=== PATIENT | male | born 1945 | race Caucasian/White ===

== ENCOUNTER → 2018-02-08 10:30 | Outpatient (CLI) | payer OTHER, SELFPAY ==
[2018-02-08 11:50] LABS: Add Manual Diff / Slide Review NO; Basophils Percent Auto 0.9 % (0-2); Eosinophils Percent Auto 3.8 % (2-4); Hematocrit 36.4 % (41-53); Hemoglobin 12.1 g/dL (13.5-17.5); Mean Corpuscular HGB Conc 33.3 % (30-36); Mean Corpuscular Hemoglobin 30.4 PG (26-34); Mean Corpuscular Volume 91.4 fL (80-100); Monocytes Percent Auto 15.2 % (3-14); Neutrophils Absolute Auto 2800 /uL (3000-5900); Neutrophils Percent Auto 55.1 % (50-75); Platelet Count 317 X10^3/uL (150-400); Red Blood Cell Count 3.98 X10^6/uL (4.5-5.9); Red Cell Distribution Width 14.1 % (11.6-14.8); White Blood Cell Count 5.1 X10^3/uL (4.5-11.0)
[2018-02-08 13:01] LABS: TSH w/ Reflex to FT4 1.28 uIU/mL (0.47-4.68)
[2018-02-08 14:44] LABS: Alanine Aminotransferase 29 IU/L (21-72); Albumin 4.2 g/dL (3.5-5.0); Albumin Globulin Ratio 1.3 (1.0-2.8); Alkaline Phosphatase 72 U/L (38-126); Aspartate Aminotransferase 31 IU/L (17-59); BUN Creatinine Ratio 17.5 (6-22); Bilirubin Total 0.5 mg/dL (0.2-1.3); Blood Urea Nitrogen 14 mg/dL (9-20); Calcium 9.2 mg/dL (8.4-10.2); Carbon Dioxide 29 mmol/L (22-32); Chloride 103 mmol/L (98-107); Cholesterol 118 mg/dL (140-199); Estimated Glomerular Filt Rate > 60.0 mL/min (>60); Globulin 3.2 g/dL (1.7-4.1); Glucose 102 mg/dL (80-110); HDL Cholesterol 48 mg/dL (40-60); HEMOLYSIS < 15 (0-50); LDL Cholesterol Calculated 56 mg/dL (<100); Sodium 143 mmol/L (137-145); Total Protein 7.4 g/dL (6.3-8.2); Triglycerides 68 mg/dL (35-150)
[2018-02-08 15:07] LABS: Prostate Specific Antigen Scrn < 0.064 ng/mL (0.1-4.0)
== END ==
PROVIDERS: PCP Family Medicine; Visit Provider Family Medicine
DX: E78.2 Mixed hyperlipidemia (principal); I10 Essential (primary) hypertension; Z00.00 Encounter for general adult medical examination without abnormal findings; Z12.5 Encounter for screening for malignant neoplasm of prostate
CPT/HCPCS: 36415; 80053; 80061; 84443; 85025; G0103

== ENCOUNTER → 2018-03-09 13:26 | Outpatient (CLI) | payer OTHER, SELFPAY ==
--- NOTE | 2018-03-09 13:27 | DI.ECHO.S_ITS ---
[place] [facility]---------+ [facility] +---------+ : : [address] : [address] : : : : [id number] : : : : Phone: [phone] Echocardiogram Report + + :Name: MITZY MARTE Study Date: 03/09/2018 Height: 65 in : :[facility] Exam Location: IS Weight: 180 lb : : Gender: Male BSA: 1.9 m2 : :: 1945 Age: 72 yrs BP: 122/70 mmHg: :Reason For Study: MURMUR : : Performed By: Surendra Samayoa : :Referring: KARI RODARTE : + + Interpretation Summary The left ventricle is normal in size. The ejection fraction is estimated to be 65-70%. The right ventricle is normal in size and function. The aortic valve is moderately calcified.The mobility of non coronary cusp is significantly restricted. The peak aortic velocity is 3.1 m/sec. The aortic valve mean gradient is 22 mmHg. The peak aortic velocity on the previous exam was 2.23 m/sec. The calculated aortic valve area is 1.2 cm2. There is moderate aortic stenosis. Compared to the prior echo study, there has been an increase in the severity of aortic stenosis. There is mild tricuspid regurgitation. Compared to the prior echo exam, there has been no change in TR severity. The right ventricular systolic pressure is estimated to be at least 24 mmHg based on an estimated right atrial pressure of 3 mm Hg. Procedure: A two-dimensional transthoracic echocardiogram with color flow and Doppler was performed. The study quality was technically adequate. Comparison is made with the echocardiogram of 01/13/11. The patient was in normal sinus rhythm during the exam. Left Ventricle: The left ventricle is normal in size. Proximal septal thickening is noted. There is no echo evidence for significant left ventricular outflow tract obstruction. There is no thrombus. The ejection fraction is estimated to be 65-70%. There has been no significant change since the previous study. There are no focal wall motion abnormalities. Diastolic parameters suggest a relaxation abnormality of the left ventricle, consistent with probable normal filling pressures. Right Ventricle: The right ventricle is normal in size and function. Atria: The left atrium is mildly dilated. The left atrium has remained unchanged in size since the prior echo exam. Right atrial size is normal. The interatrial septum is intact with no evidence for an atrial septal defect. Mitral Valve: There is mild mitral annular calcification. The mitral valve leaflets appear mildly thickened, but open well. The mitral valve chordae are thickened and/or calcified. There is mild mitral regurgitation. Compared to the prior echo study, there has been no change in the severity of mitral regurgitation. Aortic Valve: The aortic valve is trileaflet. The aortic valve is moderately calcified. The mobility of non coronary cusp is significantly restricted. The peak aortic velocity is 3.1 m/sec. The aortic valve mean gradient is 22 mmHg. The calculated aortic valve area is 1.2 cm2. There is moderate aortic stenosis. The peak aortic velocity on the previous exam was 2.23 m/sec. Compared to the prior echo study, there has been an increase in the severity of aortic stenosis. There is trace aortic regurgitation. Tricuspid Valve: The tricuspid valve is normal. There is mild tricuspid regurgitation. The right ventricular systolic pressure is estimated to be at least 24 mmHg based on an estimated right atrial pressure of 3 mm Hg. Compared to the prior echo exam, there has been no change in TR severity. Compared to the prior echo exam, there has been no change in the severity of pulmonary hypertension. Pulmonic Valve: The pulmonic valve is not well seen, but is grossly normal. There is trace pulmonic regurgitation. Great Vessels: The aortic root is normal size. There is aortic root sclerosis/calcification. The ascending aorta is mildly enlarged. There has been no significant change since the previous study. The pulmonary artery is normal size. The IVC is of normal diameter and collapses greater than 50% with a sniff. This suggests a low right atrial pressure of 3 mm Hg. Pericardium/ Pleura There is no pericardial effusion. There is no pleural effusion. MMode/2D Measurements & Calculations LVIDd: 4.4 cm LVOT diam: 2.0 cm LVIDs: 2.4 cm Ao root diam: 3.0 cm FS: 45.8 % Aortic Jxn: 1.9 cm EPSS: 0.38 cm asc Aorta Diam: 3.6 cm IVSd: 0.77 cm Ao Arch Diam (Prox Trans): 2.6 cm LVPWd: 0.90 cm LV batista. diameter/BSA (cm/m^2): 2.3 LV sys. diameter/BSA (cm/m^2): 1.3 LA dimension: 3.5 cm RA long axis: 5.1 cm LA A2 area: 21.1 cm2 RA area: 16.1 cm2 LA A4 area: 19.7 cm2 RA vol: 43.1 ml LA length (vol): 5.4 cm RA : 22.8 ml/m2 LA vol: 65.5 ml IVC diam: 1.6 cm LA vol index: 34.7 ml/m2 Doppler Measurements & Calculations Ao V2 max: 310.2 cm/sec LVOT Max Aleksander: 116.2 cm/sec Ao V2 mean: 220.7 cm/sec LV V1 max P.4 mmHg Ao max P.5 mmHg LV V1 VTI: 23.6 cm Ao mean P.0 mmHg STANISLAW(I,D): 1.1 cm2 Ao V2 VTI: 70.2 cm STANISLAW(V,D): 1.2 cm2 sev ratio: 0.34 STANISLAW indexed to BSA (cm^2/m^2): 0.57 MV E max aleksander: 86.7 cm/sec TR max aleksander: 229.3 cm/sec MV A max aleksander: 121.9 cm/sec TR max P.0 mmHg MV E/A: 0.71 PA V2 max: 96.2 cm/sec Med Peak E' Aleksander: 6.0 cm/sec PA V2 mean: 70.8 cm/sec E/E' med: 14.5 PA mean P.2 mmHg Lat Peak E' Aleksander: 8.2 cm/sec PA pr(Accel): 31.6 mmHg E/E' lat: 10.6 PA Accel Time: 0.09 sec E/e' average: 12.6 MV dec time: 0.15 sec Pulm A Revs Aleksander: 32.6 cm/sec Reading Physician:PM
== END ==
PROVIDERS: PCP Family Medicine; Visit Provider Family Medicine
DX: I08.3 Combined rheumatic disorders of mitral, aortic and tricuspid valves (principal); R01.1 Cardiac murmur, unspecified
CPT/HCPCS: 93306

== ENCOUNTER → 2018-08-09 11:28 | Outpatient (CLI) | payer OTHER, SELFPAY ==
--- NOTE | 2018-08-09 | DI.RAD.S_ITS ---
PROCEDURE: XR CHEST 2V INDICATIONS: HISTORY OF BLADDER CANCER TECHNIQUE: 2 views of the chest were acquired. COMPARISON: [facility], CT, ABDOMEN/PELVIS WITH CONTRAST, 10/02/2014, 5:12. [facility], CR, CHEST 2 VIEW, 06/30/2017, 10:43. FINDINGS: Surgical changes and devices: None. Lungs and pleura: Lungs are clear. Eventration of the right hemidiaphragm. No pleural effusions or pneumothorax. Mediastinum: Mediastinal contours are normal. Heart size is normal. Bones and chest wall: No suspicious bony abnormalities. Soft tissues appear unremarkable. IMPRESSION: No acute disease. Dictated by: Asher Phillip M.D. on 08/09/2018 at 12:40 Approved by: Asher Phillip M.D. on 08/09/2018 at 12:44
[2018-08-09 12:28] LABS: HEMOLYSIS < 15 (0-50)
[2018-08-09 12:36] LABS: Alanine Aminotransferase 25 IU/L (21-72); Albumin 4.5 g/dL (3.5-5.0); Albumin Globulin Ratio 1.5 (1.0-2.8); Alkaline Phosphatase 77 U/L (38-126); Aspartate Aminotransferase 29 IU/L (17-59); Bilirubin Total 0.8 mg/dL (0.2-1.3); Blood Urea Nitrogen 20 mg/dL (9-20); Calcium 9.3 mg/dL (8.4-10.2); Carbon Dioxide 25 mmol/L (22-32); Chloride 100 mmol/L (98-107); Estimated Glomerular Filt Rate > 60.0 mL/min (>60); Globulin 3.1 g/dL (1.7-4.1); Glucose 103 mg/dL (80-110); Potassium 4.3 mmol/L (3.4-5.1); Sodium 136 mmol/L (137-145); Total Protein 7.6 g/dL (6.3-8.2)
[2018-08-09 13:09] LABS: Prostate Specific Antigen < 0.064 ng/mL (0.10-4.00)
[2018-08-09 13:22] LABS: Vitamin B12 415 pg/mL (239-931)
== END ==
PROVIDERS: PCP Family Medicine; Visit Provider Urology
DX: Z85.51 Personal history of malignant neoplasm of bladder (principal); Z12.5 Encounter for screening for malignant neoplasm of prostate
CPT/HCPCS: 36415; 71046; 80053; 82607; 84153

== ENCOUNTER 2018-10-13 12:10 | Emergency (ER) | payer OTHER, SELFPAY ==
[2018-10-13 12:10] VITALS: BP 133/68; PULSE 88; RESP 18; TEMP 36.6; O2SAT 95
--- NOTE | 2018-10-13 12:35 | ED.NECK ---
HPI - Neck Pain/Injury <Cira Newman PA-C - Last Filed: 10/13/18 19:44> General Chief Complaint: Extremity Injury, Upper Stated Complaint: Neck pain, thinks sprain Time Seen by Provider: 10/13/18 12:18 Source: patient Mode of arrival: ambulatory Limitations: no limitations History of Present Illness HPI Narrative: This 73-year-old male comes to ED secondary to persistent neck pain causing lack of sleep. He states that this started 4 days ago, when he was trying to change a Flood light that broke, and had to spend about 20 minutes or more with his neck crooked, removing it with pliers on his tiptoes. Pain started immediately following this. Pain is worse with movement of the neck, and he can't sleep due to the pain. He states that pain does not radiate into his extremities, but he does have some numbness in his right 4th and 5th fingers. He denies any weakness in the extremities. He denies any bowel or bladder changes. He saw his PCP yesterday for this and was given a prescription for cyclobenzaprine, which he thinks helped the pain slightly but did not make him tired at all. He states that he is not acutely worse today but his PCP is not in the office and miserable because he can't sleep. He denies any new fever. He denies any vision change. He denies any nausea or vomiting. He denies any new rashes. He denies any jaw claudication. He has some chronic shoulder and back pain which are not acutely changed. Shoulder pain is worse at night. Only other positive on systems review is right-sided headache radiating over the head from the back of the neck which is ?achy? Related Data Home Medications Medication Instructions Recorded Confirmed multivitamin 1 tab PO DAILY #0 01/20/11 10/13/18 melatonin 3 mg PO BEDTIME #0 02/10/17 10/13/18 atorvastatin [Lipitor] 40 mg PO QPM 10/13/18 10/13/18 cholecalciferol (vitamin D3) 2,000 unit PO DAILY 10/13/18 10/13/18 [Vitamin D3] ibuprofen 400 mg PO PRN PRN 10/13/18 10/13/18 lisinopril-hydrochlorothiazide 1 tab PO QPM 10/13/18 10/13/18 mirtazapine 30 mg PO QPM 10/13/18 10/13/18 Previous Rx's Medication Instructions Recorded cyclobenzaprine 10 mg tablet 5 mg PO TID PRN #20 tab 10/12/18 hydrocodone-acetaminophen 1 tab PO Q6H PRN #7 tab 10/13/18 lidocaine 3 patch TOP DAILY #30 each 10/13/18 Allergies Allergy/AdvReac Type Severity Reaction Status Date / Time Sulfa (Sulfonamide Allergy Mild SEVERE Verified 10/12/18 13:44 Antibiotics) HEADACHE [SULFA (SULFONAMIDE ANTIBIOTICS)] Review of Systems <Cira Newman PA-C - Last Filed: 10/13/18 19:44> Review of Systems ROS Unobtainable: All systems reviewed & are unremarkable except as noted in HPI and below PFSH <Cira Newman PA-C - Last Filed: 10/13/18 19:44> Medical History Anemia (Chronic 2010) Chronic back pain (Chronic 1969) Eczema (Chronic 1983) Hayfever (Chronic 2006) Hyperlipidemia (Chronic) Hypertension (Chronic) Lumbar spine pain (Chronic 1978) RLS (restless legs syndrome) (Chronic 2011) Acne (Resolved 1958) Bladder cancer (Resolved 2010) Chicken pox (Resolved 1952) Migraines (Resolved 1957) Mumps (Resolved 1953) Positive PPD (Resolved 1953) Prostate cancer (Resolved 2010) Urinary incontinence (Resolved 2010) Wrist fracture (Resolved 1968) Family History Brother Age: 67 Overweight Brother Age: 57 Diabetes mellitus Hypertension High cholesterol Father High cholesterol Heart disease Pneumonia [place] (myocardial infarction) Mother Cancer Heart disease Hypertension Stroke Congestive heart failure Son No problems noted. Daughter No problems noted. Sister No problems noted. Social History marital status: Smoking Status: Former smoker alcohol intake: current (ON OCCASION ) substance use type: does not use Exam <Cira Newman PA-C - Last Filed: 10/13/18 19:44> Narrative Exam Narrative: GENERAL APPEARANCE: Patient sitting, appears mildly uncomfortable, in NAD HEENT: PERRL, EOMI, normal TMs and oropharynx, no sinus TTP NECK: Supple, no masses LUNGS: Clear to auscultation bilaterally. HEART: Rate and rhythm regular without murmur, normal S1 and S2, no S3 or S4. NEUROLOGIC: Alert and oriented, normal speech, and coordination. Sensation grossly intact to the extremities, negative Tinel sign over the ulnar distribution MUSCULOSKELETAL: No point tenderness over the cervical or upper thoracic spine. Tender over the right inferior insertions of the posterior cervical strap musculature as well as the proximal trapezius. Less tender over the remainder of the surrounding musculature. Also tender over the left-sided cervical strap musculature most at the suboccipital space. Limited C-spine ROM in all lau secondary to tenderness, most with bilateral lateral bend and rotation. Upper extremity strength 5/5 bilateral shoulder shrug, biceps, triceps, cloth shearer. DERMATOLOGIC: No exanthem Initial Vital Signs Initial Vital Signs: Vital Signs Temperature 97.9 F 10/13/18 12:10 Pulse Rate 88 10/13/18 12:10 Respiratory Rate 18 10/13/18 12:10 Blood Pressure 133/68 10/13/18 12:10 Pulse Oximetry 95 10/13/18 12:10 <So lGass DO - Last Filed: 10/14/18 07:27> Initial Vital Signs Initial Vital Signs: Vital Signs Temperature 97.9 F 10/13/18 12:10 Pulse Rate 88 10/13/18 12:10 Respiratory Rate 18 10/13/18 12:10 Blood Pressure 133/68 10/13/18 12:10 Pulse Oximetry 95 10/13/18 12:10 Procedures <Cira Newman PA-C - Last Filed: 10/13/18 19:44> [facility] [place] Procedure Name of Procedure: Trigger point injection Technique/Description of procedure performed: Skin was cleaned and injected with 0.6 CC Marcaine and 0.4 cc dexamethasone each site: Left suboccipital and right cervical strap muscle distal base. Patient reported significant improvement in pain following injections, ROM improved on reassessment. Patient tolerated procedure: Well Course <Cira Newman PA-C - Last Filed: 10/13/18 19:44> Orders Ordered: Discontinued Medications Dexamethasone (Decadron) 4 mg INJ NOW ONE Stop: 10/13/18 12:50 Last Admin: 10/13/18 12:54 Dose: 4 mg Vital Signs - 8 hr 10/13/18 12:10 10/13/18 13:32 Temperature 97.9 F 98.4 F Pulse Rate 88 84 Respiratory Rate 18 12 Blood Pressure 133/68 Pulse Oximetry 95 98 <So Glass, DO - Last Filed: 10/14/18 07:27> Orders Ordered: Discontinued Medications Dexamethasone (Decadron) 4 mg INJ NOW ONE Stop: 10/13/18 12:50 Last Admin: 10/13/18 12:54 Dose: 4 mg Vital Signs - 8 hr 10/13/18 12:10 10/13/18 13:32 Temperature 97.9 F 98.4 F Pulse Rate 88 84 Respiratory Rate 18 12 Blood Pressure 133/68 Pulse Oximetry 95 98 Discharge Plan Departure Patient Disposition: Home Clinical Impression: Acute cervical myofascial strain Qualifiers: Encounter type: initial encounter Qualified Code(s): S16.1XXA - Strain of muscle, fascia and tendon at neck level, initial encounter Discharge Date/Time: 10/13/18 14:04 Interventions: ED Discharge Assessment Last Done: 10/13/18 14:05 Instructions: DI for Neck Sprain, DI for Muscle Spasm Activity Restrictions/Additional Instructions: As we talked about, you should return if you have any acutely worsening symptoms over the weekend, or new symptoms such as rash, vision change, jaw pain or fever. Otherwise, please continue your medicines that you have at home. You can continue taking the cyclobenzaprine, and if you need to you can increase the dose to a full tab at bedtime. Please try taking the hydrocodone/acetaminophen with the 5 mg dose 1st to see if that is enough for you as both of these medicines can make you sleepy. Put the lidocaine patches on after you pick them up as you can wear these for 12 hours daily. (I sent patch prescription to [facility] for you). Continue very gentle stretching but avoid straining the neck. You can continue heat and ice as needed. Please follow-up with your PCP next week to assess your progress and see whether you may need any further treatment such as physical therapy. Prescriptions: New hydrocodone-acetaminophen 5-325 mg tablet 1 tab PO Q6H PRN (Reason: acute neck pain) Qty: 7 RF: 0 lidocaine 5 % adhesive patch,medicated 3 patch TOP DAILY Qty: 30 RF: 0 No Action cyclobenzaprine 10 mg tablet 5 mg PO TID PRN (Reason: muscle spasm) Qty: 20 RF: 0 multivitamin Tablet 1 tab PO DAILY Qty: 0 RF: 0 melatonin 3 MG tablet 3 mg PO BEDTIME Qty: 0 RF: 0 atorvastatin [Lipitor] 40 mg tablet 40 mg PO QPM RF: 0 lisinopril-hydrochlorothiazide 20-12.5 mg tablet 1 tab PO QPM RF: 0 ibuprofen 200 mg Tablet 400 mg PO PRN PRN (Reason: pain) RF: 0 mirtazapine 30 mg tablet 30 mg PO QPM RF: 0 cholecalciferol (vitamin D3) [Vitamin D3] 2,000 unit Capsule 2,000 unit PO DAILY RF: 0 Referrals: Odell Allen MD [Primary Care Provider] - <So Glass DO - Last Filed: 10/14/18 07:27> Cosign ED Attending Cosignature Attestation: I was immediately available in the department for consultation. This documentation has been reviewed and I agree with assessment and plan. Supervised by So Glass DO
[2018-10-13] MEDS: DEXAMETHASONE 4 MG/ML VIAL INJ (12:54)
--- NOTE | 2018-10-13 13:12 | ED_ITS ---
HPI - Neck Pain/Injury <Cira Newman PA-C - Last Filed: 10/13/18 19:44> General Chief Complaint: Extremity Injury, Upper Stated Complaint: Neck pain, thinks sprain Time Seen by Provider: 10/13/18 12:18 Source: patient Mode of arrival: ambulatory Limitations: no limitations History of Present Illness HPI Narrative: This 73-year-old male comes to ED secondary to persistent neck pain causing lack of sleep. He states that this started 4 days ago, when he was trying to change a Flood light that broke, and had to spend about 20 minutes or more with his neck crooked, removing it with pliers on his tiptoes. Pain started immediately following this. Pain is worse with movement of the neck, and he can't sleep due to the pain. He states that pain does not radiate into his extremities, but he does have some numbness in his right 4th and 5th fingers. He denies any weakness in the extremities. He denies any bowel or bladder changes. He saw his PCP yesterday for this and was given a prescription for cyclobenzaprine, which he thinks helped the pain slightly but did not make him tired at all. He states that he is not acutely worse today but his PCP is not in the office and miserable because he can't sleep. He denies any new fever. He denies any vision change. He denies any nausea or vomiting. He denies any new rashes. He denies any jaw claudication. He has some chronic shoulder and back pain which are not acutely changed. Shoulder pain is worse at night. Only other positive on systems review is right-sided headache radiating over the head from the back of the neck which is ?achy? Related Data Home Medications Medication Instructions Recorded Confirmed multivitamin 1 tab PO DAILY #0 01/20/11 10/13/18 melatonin 3 mg PO BEDTIME #0 02/10/17 10/13/18 atorvastatin [Lipitor] 40 mg PO QPM 10/13/18 10/13/18 cholecalciferol (vitamin D3) 2,000 unit PO DAILY 10/13/18 10/13/18 [Vitamin D3] ibuprofen 400 mg PO PRN PRN 10/13/18 10/13/18 lisinopril-hydrochlorothiazide 1 tab PO QPM 10/13/18 10/13/18 mirtazapine 30 mg PO QPM 10/13/18 10/13/18 Previous Rx's Medication Instructions Recorded cyclobenzaprine 10 mg tablet 5 mg PO TID PRN #20 tab 10/12/18 hydrocodone-acetaminophen 1 tab PO Q6H PRN #7 tab 10/13/18 lidocaine 3 patch TOP DAILY #30 each 10/13/18 Allergies Allergy/AdvReac Type Severity Reaction Status Date / Time Sulfa (Sulfonamide Allergy Mild SEVERE Verified 10/12/18 13:44 Antibiotics) HEADACHE [SULFA (SULFONAMIDE ANTIBIOTICS)] Review of Systems <Cira Newman PA-C - Last Filed: 10/13/18 19:44> Review of Systems ROS Unobtainable: All systems reviewed & are unremarkable except as noted in HPI and below PFSH <Cira Newman PA-C - Last Filed: 10/13/18 19:44> Medical History Anemia (Chronic 2010) Chronic back pain (Chronic 1969) Eczema (Chronic 1983) Hayfever (Chronic 2006) Hyperlipidemia (Chronic) Hypertension (Chronic) Lumbar spine pain (Chronic 1978) RLS (restless legs syndrome) (Chronic 2011) Acne (Resolved 1958) Bladder cancer (Resolved 2010) Chicken pox (Resolved 1952) Migraines (Resolved 1957) Mumps (Resolved 1953) Positive PPD (Resolved 1953) Prostate cancer (Resolved 2010) Urinary incontinence (Resolved 2010) Wrist fracture (Resolved 1968) Family History Brother Age: 67 Overweight Brother Age: 57 Diabetes mellitus Hypertension High cholesterol Father High cholesterol Heart disease Pneumonia [place] (myocardial infarction) Mother Cancer Heart disease Hypertension Stroke Congestive heart failure Son No problems noted. Daughter No problems noted. Sister No problems noted. Social History marital status: Smoking Status: Former smoker alcohol intake: current (ON OCCASION ) substance use type: does not use Exam <Cira Newman PA-C - Last Filed: 10/13/18 19:44> Narrative Exam Narrative: GENERAL APPEARANCE: Patient sitting, appears mildly uncomfortable, in NAD HEENT: PERRL, EOMI, normal TMs and oropharynx, no sinus TTP NECK: Supple, no masses LUNGS: Clear to auscultation bilaterally. HEART: Rate and rhythm regular without murmur, normal S1 and S2, no S3 or S4. NEUROLOGIC: Alert and oriented, normal speech, and coordination. Sensation grossly intact to the extremities, negative Tinel sign over the ulnar di stribution MUSCULOSKELETAL: No point tenderness over the cervical or upper thoracic spine. Tender over the right inferior insertions of the posterior cervical strap musculature as well as the proximal trapezius. Less tender over the remainder of the surrounding musculature. Also tender over the left-sided cervical strap musculature most at the suboccipital space. Limited C-spine ROM in all lau secondary to tenderness, most with bilateral lateral bend and rotation. Upper extremity strength 5/5 bilateral shoulder shrug, biceps, triceps, house wirer. DERMATOLOGIC: No exanthem Initial Vital Signs Initial Vital Signs: Vital Signs Temperature 97.9 F 10/13/18 12:10 Pulse Rate 88 10/13/18 12:10 Respiratory Rate 18 10/13/18 12:10 Blood Pressure 133/68 10/13/18 12:10 Pulse Oximetry 95 10/13/18 12:10 <So Glass DO - Last Filed: 10/14/18 07:27> Initial Vital Signs Initial Vital Signs: Vital Signs Temperature 97.9 F 10/13/18 12:10 Pulse Rate 88 10/13/18 12:10 Respiratory Rate 18 10/13/18 12:10 Blood Pressure 133/68 10/13/18 12:10 Pulse Oximetry 95 10/13/18 12:10 Procedures <Cira Newman PA-C - Last Filed: 10/13/18 19:44> [facility] [place] Procedure Name of Procedure: Trigger point injection Technique/Description of procedure performed: Skin was cleaned and injected with 0.6 CC Marcaine and 0.4 cc dexamethasone each site: Left suboccipital and right cervical strap muscle distal base. Patient reported significant improvement in pain following injections, ROM improved on reassessment. Patient tolerated procedure: Well Course <Cira Newman PA-C - Last Filed: 10/13/18 19:44> Orders Ordered: Discontinued Medications Dexamethasone (Decadron) 4 mg INJ NOW ONE Stop: 10/13/18 12:50 Last Admin: 10/13/18 12:54 Dose: 4 mg Vital Signs - 8 hr 10/13/18 12:10 10/13/18 13:32 Temperature 97.9 F 98.4 F Pulse Rate 88 84 Respiratory Rate 18 12 Blood Pressure 133/68 Pulse Oximetry 95 98 <So Glass DO - Last Filed: 10/14/18 07:27> Orders Ordered: Discontinued Medications Dexamethasone (Decadron) 4 mg INJ NOW ONE Stop: 10/13/18 12:50 Last Admin: 10/13/18 12:54 Dose: 4 mg Vital Signs - 8 hr 10/13/18 12:10 10/13/18 13:32 Temperature 97.9 F 98.4 F Pulse Rate 88 84 Respiratory Rate 18 12 Blood Pressure 133/68 Pulse Oximetry 95 98 Discharge Plan Departure Patient Disposition: Home Clinical Impression: Acute cervical myofascial strain Qualifiers: Encounter type: initial encounter Qualified Code(s): S16.1XXA - Strain of muscle, fascia and tendon at neck level, initial encounter Discharge Date/Time: 10/13/18 14:04 Interventions: ED Discharge Assessment Last Done: 10/13/18 14:05 Instructions: DI for Neck Sprain, DI for Muscle Spasm Activity Restrictions/Additional Instructions: As we talked about, you should return if you have any acutely worsening symptoms over the weekend, or new symptoms such as rash, vision change, jaw pain or fever. Otherwise, please continue your medicines that you have at home. You can continue taking the cyclobenzaprine, and if you need to you can increase the dose to a full tab at bedtime. Please try taking the hydrocodone/acetaminophen with the 5 mg dose 1st to see if that is enough for you as both of these medicines can make you sleepy. Put the lidocaine patches on after you pick them up as you can wear these for 12 hours daily. (I sent patch prescription to [facility] for you). Continue very gentle stretching but avoid straining the neck. You can continue heat and ice as needed. Please follow-up with your PCP next week to assess your progress and see whether you may need any further papa atment such as physical therapy. Prescriptions: New hydrocodone-acetaminophen 5-325 mg tablet 1 tab PO Q6H PRN (Reason: acute neck pain) Qty: 7 RF: 0 lidocaine 5 % adhesive patch,medicated 3 patch TOP DAILY Qty: 30 RF: 0 No Action cyclobenzaprine 10 mg tablet 5 mg PO TID PRN (Reason: muscle spasm) Qty: 20 RF: 0 multivitamin Tablet 1 tab PO DAILY Qty: 0 RF: 0 melatonin 3 MG tablet 3 mg PO BEDTIME Qty: 0 RF: 0 atorvastatin [Lipitor] 40 mg tablet 40 mg PO QPM RF: 0 lisinopril-hydrochlorothiazide 20-12.5 mg tablet 1 tab PO QPM RF: 0 ibuprofen 200 mg Tablet 400 mg PO PRN PRN (Reason: pain) RF: 0 mirtazapine 30 mg tablet 30 mg PO QPM RF: 0 cholecalciferol (vitamin D3) [Vitamin D3] 2,000 unit Capsule 2,000 unit PO DAILY RF: 0 Referrals: Odell Allen MD [Primary Care Provider] - <So Glass DO - Last Filed: 10/14/18 07:27> Cosign ED Attending Cosignature Attestation: I was immediately available in the department for consultation. This documentation has been reviewed and I agree with assessment and plan. Supervised by So Glass DO
[2018-10-13 13:32] VITALS: PULSE 84; RESP 12; TEMP 36.9; O2SAT 98
== END 2018-10-13 14:04 | disposition home or self-care (01) ==
PROVIDERS: Emergency Provider Internal Medicine; PCP Family Medicine
DX: S16.1XXA Strain of muscle, fascia and tendon at neck level, initial encounter (principal); X50.1XXA Overexertion from prolonged static or awkward postures, initial encounter
CPT/HCPCS: 20552; 99282; 99283; J1100

== ENCOUNTER → 2019-02-27 11:41 | Outpatient (CLI) | payer OTHER, SELFPAY ==
[2019-02-27 12:21] LABS: Add Manual Diff / Slide Review NO; Basophils Absolute Auto 0 /uL (0-100); Basophils Percent Auto 0.8 % (0-2); Eosinophils Absolute Auto 100 /uL (0-450); Eosinophils Percent Auto 2.5 % (2-4); Hematocrit 35.9 % (41-53); Hemoglobin 12.1 g/dL (13.5-17.5); Lymphocytes Absolute Auto 1000 /uL (1100-4500); Lymphocytes Percent Auto 18.8 % (25-40); Mean Corpuscular HGB Conc 33.8 % (30-36); Mean Corpuscular Hemoglobin 30.2 PG (26-34); Mean Corpuscular Volume 89.5 fL (80-100); Monocytes Absolute Auto 700 /uL (0-900); Monocytes Percent Auto 12.9 % (3-14); Neutrophils Absolute Auto 3400 /uL (1500-7000); Platelet Count 321 X10^3/uL (150-400); Red Blood Cell Count 4.01 X10^6/uL (4.5-5.9); White Blood Cell Count 5.3 X10^3/uL (4.5-11.0)
[2019-02-27 12:34] LABS: Alanine Aminotransferase 19 IU/L (<50); Albumin 4.3 g/dL (3.5-5.0); Albumin Globulin Ratio 1.5 (1.0-2.8); Alkaline Phosphatase 91 U/L (38-126); Aspartate Aminotransferase 29 IU/L (17-59); Bilirubin Total 0.9 mg/dL (0.2-1.3); Blood Urea Nitrogen 20 mg/dL (9-20); Calcium 9.6 mg/dL (8.4-10.2); Carbon Dioxide 26 mmol/L (22-32); Chloride 103 mmol/L (98-107); Cholesterol 118 mg/dL (140-199); Estimated Glomerular Filt Rate > 60.0 mL/min (>60); Globulin 2.8 g/dL (1.7-4.1); Glucose 105 mg/dL (80-110); HDL Cholesterol 47 mg/dL (40-60); HEMOLYSIS < 15 (0-50); LDL Cholesterol Calculated 51 mg/dL (<100); Potassium 4.1 mmol/L (3.4-5.1); Sodium 138 mmol/L (137-145); Total Protein 7.1 g/dL (6.3-8.2); Triglycerides 98 mg/dL (35-150)
[2019-02-27 13:02] LABS: Thyroid Stimulating Hormone 1.15 uIU/mL (0.47-4.68)
[2019-02-27 13:03] LABS: Prostate Specific Antigen Scrn < 0.064 ng/mL (0.1-4.0)
== END ==
PROVIDERS: PCP Family Medicine; Visit Provider Family Medicine
DX: E78.2 Mixed hyperlipidemia (principal); I10 Essential (primary) hypertension; Z12.5 Encounter for screening for malignant neoplasm of prostate
CPT/HCPCS: 36415; 80053; 80061; 84443; 85025; G0103

== ENCOUNTER → 2019-09-26 11:10 | Outpatient (CLI) | payer OTHER, SELFPAY ==
--- NOTE | 2019-09-26 | DI.RAD.S_ITS ---
PROCEDURE: XR CHEST 2V INDICATIONS: History of bladder cancer TECHNIQUE: 2 views of the chest were acquired. COMPARISON: [facility], CR, XR CHEST 2V, 08/09/2018, 11:35. FINDINGS: Surgical changes and devices: None. Lungs and pleura: No acute consolidation. Scattered scarring/atelectasis. High density somewhat rectangular opacity measuring 9 mm projecting over the right apex is thought to be external to the patient although a repeat chest radiograph could be performed as clinically warranted. No pleural effusions or pneumothorax. Mediastinum: Mediastinal contours are normal. Heart size is normal. Bones and chest wall: No suspicious bony abnormalities. Soft tissues appear unremarkable. IMPRESSION: No acute disease High density opacity projecting over the right upper lobe thought to be external to the patient although this could be confirmed with a followup chest radiograph as clinically warranted. Dictated by: Asher Phillip M.D. on 09/26/2019 at 13:41 Approved by: Asher Phillip M.D. on 09/26/2019 at 13:44
[2019-09-26 12:55] LABS: Alanine Aminotransferase 18 IU/L (<50); Albumin 4.2 g/dL (3.5-5.0); Albumin Globulin Ratio 1.4 (1.0-2.8); Alkaline Phosphatase 80 U/L (38-126); Aspartate Aminotransferase 30 IU/L (17-59); BUN Creatinine Ratio 21.3 (6-22); Bilirubin Total 0.5 mg/dL (0.2-1.3); Blood Urea Nitrogen 16 mg/dL (9-20); Calcium 9.5 mg/dL (8.4-10.2); Carbon Dioxide 27 mmol/L (22-32); Chloride 102 mmol/L (98-107); Estimated Glomerular Filt Rate > 60.0 mL/min (>60); Globulin 2.9 g/dL (1.7-4.1); Glucose 108 mg/dL (80-110); HEMOLYSIS < 15 (0-50); Potassium 4.3 mmol/L (3.4-5.1); Sodium 137 mmol/L (137-145); Total Protein 7.1 g/dL (6.3-8.2)
[2019-09-26 13:28] LABS: Prostate Specific Antigen < 0.064 ng/mL (0.10-4.00)
[2019-09-26 13:44] LABS: Vitamin B12 389 pg/mL (239-931)
== END ==
PROVIDERS: PCP Family Medicine; Referring Provider Urology; Visit Provider Urology
DX: Z85.51 Personal history of malignant neoplasm of bladder (principal)
CPT/HCPCS: 36415; 71046; 80053; 82607; 84153

== ENCOUNTER → 2020-03-01 09:56 | Outpatient (CLI) | payer OTHER, SELFPAY ==
[2020-03-01 11:20] LABS: COVID19 -Nasal RAPID Negative (Negative)
== END ==
PROVIDERS: PCP Family Medicine; Visit Provider Nurse Practitioner
DX: Z11.59 Encounter for screening for other viral diseases (principal)
CPT/HCPCS: 87635

== ENCOUNTER 2020-03-03 07:29 | Day surgery (SDC) | payer OTHER, SELFPAY ==
[2020-03-03] VITALS (7 sets, daily range): BP systolic 117–142; BP diastolic 66–83; PULSE 66–96; RESP 9–15; TEMP 36.4–37.3; O2SAT 97–100; BMI 28.3
[2020-03-03] MEDS: LACTATED RINGERS 1,000 ML 200 ML IV (08:01)
--- NOTE | 2020-03-03 08:31 | PM.HP.1 ---
History of Present Illness History of Present Illness Date Patient Seen: 03/03/20 Time Patient Seen: 08:31 Chief complaint: DX COLONOSCOPY Narrative: The patient presents for colorectal sreening. He had a recent positive fecal immunochemical test, last colonoscopy was normal and 10 years ago. No personal or family history of colon cancer. History of bladder cancer status post resection and ileal conduit reconstruction. On further history denies any recent gastrointestinal symptoms. No nausea, vomiting, abdominal pain, loss of appetite, unexplained weight loss, change in bowel habits, diarrhea, constipation, melena, hematochezia, or bright red blood per rectum. Patient History Medical History (Updated 03/03/20 @ 08:33 by Joni Guzman MD) Acne (1958) Anemia (2010) Bladder cancer (2010) Chicken pox (1952) Chronic back pain (1969) Eczema (1983) Hayfever (2006) Hyperlipidemia Hypertension Lumbar spine pain (1978) Migraines (1957) Mumps (1953) Positive PPD (1953) Prostate cancer (2010) RLS (restless legs syndrome) (2011) Urinary incontinence (2010) Wrist fracture (1968) Surgical History Anesthesia History of colonoscopy (12/05/09) Status post appendectomy (1965) Status post laminectomy (1980) Status post radical cystoprostatectomy (02/08/11) Family & Social History Family History Brother Age: 69 Overweight Brother Age: 59 Diabetes mellitus Hypertension High cholesterol Father High cholesterol Heart disease Pneumonia [place] (myocardial infarction) Mother Cancer Heart disease Hypertension Stroke Congestive heart failure Son No problems noted. Daughter No problems noted. Sister No problems noted. Social History: household members spouse Tobacco & Substance use: Smoking Status Former smoker alcohol intake current alcohol intake frequency holiday/special occasion Substance Use Type marijuana Meds Home Medications and Allergies Home Medications Medication Instructions Recorded Confirmed Type multivitamin 1 tab PO DAILY #0 01/20/11 03/03/20 History melatonin 3 mg PO BEDTIME #0 02/10/17 03/03/20 History cholecalciferol (vitamin D3) 2,000 unit PO DAILY 10/13/18 03/03/20 History [Vitamin D3] atorvastatin 40 mg tablet 40 mg PO DAILY #90 tab 03/12/19 03/03/20 Rx ibuprofen 200 mg capsule 400 mg PO Q8H 03/12/19 03/03/20 History lisinopril 20 1 tab PO QPM #90 tab 03/12/19 03/03/20 Rx mg-hydrochlorothiazide 12.5 mg tablet mirtazapine 30 mg tablet 30 mg PO QPM #90 tab 03/12/19 03/03/20 Rx ferrous sulfate [iron] 325 mg PO DAILY 03/03/20 03/03/20 History omeprazole 20 mg PO DAILY 03/03/20 03/03/20 History Allergies Allergy/AdvReac Type Severity Reaction Status Date / Time Sulfa (Sulfonamide Allergy Mild SEVERE Verified 03/12/19 14:27 Antibiotics) HEADACHE [SULFA (SULFONAMIDE ANTIBIOTICS)] Review of Systems Review of Systems Narrative: A 10 point review of systems is negative except as noted in the HPI Exam Vital Signs (past 8 hours): - 03/03/20 07:44 Temperature 98.3 F Pulse Rate 96 H Respiratory Rate 15 Blood Pressure 142/83 H Pulse Oximetry 97 Oxygen Delivery Method Room Air Narrative Exam Narrative: General-no acute distress, elderly male HEENT-moist mucous membranes, no scleral icterus Neck-supple, no lymphadenopathy Chest- non labored respirations, clear to auscultation bilaterally Cardiac-regular rate no peripheral edema Abdomen-soft, nontender, non distended Extremities-warm, well perfused Neurological-alert and oriented, no focal deficits Assessment & Plan Assessment and plan (1) Positive fecal immunochemical test: Status: Acute Assessment & Plan narrative: The patient requires colorectal screening and colonoscopy is recommended. Technical details were discussed. Risks, benefits, alternatives explained. Risks including but not limited to myocardial infarction, aspiration, bleeding, pain, missed lesion, incomplete examination, need for further radiographic studies, colonic perforation, and need for major abdominal surgery were discussed. All questions were answered to their satisfaction, and they are in agreement with this plan.
--- NOTE | 2020-03-03 08:35 | PM.OP.ENDO ---
Operative Date/Time/Diagnoses Date of procedure: 03/03/20 Time of procedure: 08:35 Pre-op diagnosis: Positive fecal immunochemical test Post-op diagnosis: other (Diverticulosis, internal hemorrhoids) Procedure & Clinicians Study performed: Colonoscopy Same procedure as scheduled: Yes Indications: Positive fecal immunochemical test Surgeon: Joni Guzman Procedure Notes Procedure in detail: Medications: Conscious sedation using 6mg IV midazolam and 250mcg IV of fentanyl The history and physical was performed/updated and the patient is ASA class is 2 The procedure was discussed in detail with the patient. Potential risks complications including infection, bleeding, missed diagnosis, perforation, need for surgery, and were explained. Their questions were answered and informed consent was obtained. Patient was brought to the procedure room and placed standard monitoring equipment. The patient's vital signs were monitored continuously throughout the entire procedure. Prior to starting time-out was performed. The ablation patient was placed in the left lateral recumbent position. Procedural sedation was administered. Examination began with a thorough inspection of the perianal area there was no evidence of fissures, fistulae, external hemorrhoids or cutaneous malignancy. The colonoscopy scope was then placed into the anal canal and was advanced to the cecum, which was identified by the ileocecal valve, the appendiceal orifice and the confluence of the taenia. The scope was then slowly withdrawn examining colon thoroughly in all directions, irrigating it of any residual stool. No masses polyps Scattered sigmoid diverticulosis Grade 1 internal polyps The patient tolerated the procedure well. They will be discharged once criteria are met. The prep was of good/excellent quality. The withdrawl time was 10 minutes. The sedation time was 25minutes. Specimen(s): none sent Complications: none Impression: Normal colonoscopy Post-procedure Recommendations: Colonscopy in 10 years Disposition: same day surgery
[2020-03-03] MEDS: fentaNYL 250 MCG/5 ML INJ IV (08:55)
[2020-03-03] MEDS: MIDAZOLAM 5 MG/5 ML VIAL IV (08:55)
== END 2020-03-03 10:00 | disposition home or self-care (01) ==
PROVIDERS: PCP Family Medicine; Referring Provider Family Medicine; Visit Provider Surgery
PROC: 0DJD8ZZ Inspection of Lower Intestinal Tract, Via Natural or Artificial Opening Endoscopic (ICD-10-PCS; CPT 45378; principal; 2020-03-03 08:30)
DX: R19.5 Other fecal abnormalities (principal); I10 Essential (primary) hypertension; E78.5 Hyperlipidemia, unspecified; K57.30 Diverticulosis of large intestine without perforation or abscess without bleeding; K64.0 First degree hemorrhoids
CPT/HCPCS: 45378; 99152; J2250; J3010

== ENCOUNTER → 2020-03-14 09:33 | Outpatient (CLI) | payer OTHER, SELFPAY ==
[2020-03-14 10:33] LABS: Add Manual Diff / Slide Review NO; Basophils Absolute Auto 0 /uL (0-100); Basophils Percent Auto 0.9 % (0-2); Eosinophils Absolute Auto 200 /uL (0-450); Eosinophils Percent Auto 4.4 % (2-4); Hematocrit 38.6 % (41-53); Hemoglobin 12.8 g/dL (13.5-17.5); Lymphocytes Absolute Auto 1300 /uL (1100-4500); Mean Corpuscular Volume 90.7 fL (80-100); Monocytes Absolute Auto 600 /uL (0-900); Monocytes Percent Auto 13.8 % (3-14); Neutrophils Absolute Auto 2400 /uL (1500-7000); Neutrophils Percent Auto 52.9 % (50-75); Platelet Count 283 X10^3/uL (150-400); Red Blood Cell Count 4.26 X10^6/uL (4.5-5.9); White Blood Cell Count 4.5 X10^3/uL (4.5-11.0)
[2020-03-14 11:05] LABS: Alanine Aminotransferase 19 IU/L (<50); Albumin 4.1 g/dL (3.5-5.0); Albumin Globulin Ratio 1.2 (1.0-2.8); Alkaline Phosphatase 78 U/L (38-126); Aspartate Aminotransferase 36 IU/L (17-59); BUN Creatinine Ratio 24.7 (6-22); Bilirubin Total 0.6 mg/dL (0.2-1.3); Blood Urea Nitrogen 20 mg/dL (9-20); Calcium 9.2 mg/dL (8.4-10.2); Carbon Dioxide 31 mmol/L (22-32); Chloride 102 mmol/L (98-107); Cholesterol 117 mg/dL (140-199); Estimated Glomerular Filt Rate > 60.0 mL/min (>60); Globulin 3.3 g/dL (1.7-4.1); Glucose 107 mg/dL (80-110); HDL Cholesterol 43 mg/dL (40-60); HEMOLYSIS < 15 (0-50); LDL Cholesterol Calculated 48 mg/dL (<100); Potassium 4.2 mmol/L (3.4-5.1); Sodium 139 mmol/L (137-145); Total Protein 7.4 g/dL (6.3-8.2); Triglycerides 130 mg/dL (35-150)
[2020-03-14 11:31] LABS: Thyroid Stimulating Hormone 2.02 uIU/mL (0.47-4.68)
[2020-03-14 11:32] LABS: Prostate Specific Antigen < 0.064 ng/mL (0.10-4.00)
== END ==
PROVIDERS: PCP Family Medicine; Referring Provider Family Medicine; Visit Provider Family Medicine
DX: E78.2 Mixed hyperlipidemia (principal); Z85.46 Personal history of malignant neoplasm of prostate; I10 Essential (primary) hypertension
CPT/HCPCS: 36415; 80053; 80061; 84153; 84443; 85025

== ENCOUNTER → 2020-10-23 11:19 | Outpatient (CLI) | payer OTHER, SELFPAY ==
--- NOTE | 2020-10-23 | DI.RAD.S_ITS ---
PROCEDURE: XR CHEST 2V INDICATIONS: HISTORY OF BLADDER CANCER TECHNIQUE: 2 views of the chest were acquired. COMPARISON: [facility], , XR CHEST 2V, 09/26/2019, 11:13. [facility], CR, XR CHEST 2V, 08/09/2018, 11:35. FINDINGS: Surgical changes and devices: Linear density projecting at the right apex measuring 1.2 cm is unchanged. Lungs and pleura: Lungs are clear. No pleural effusions or pneumothorax. Mediastinum: Mediastinal contours are normal. Heart size is normal. Bones and chest wall: No suspicious bony abnormalities. Soft tissues appear unremarkable. IMPRESSION: No acute cardiopulmonary abnormality. Dictated by: Nikita Yoon M.D. on 10/23/2020 at 12:24 Approved by: Nikita Yoon M.D. on 10/23/2020 at 12:26
[2020-10-23 12:13] LABS: Alanine Aminotransferase 22 IU/L (<50); Albumin 4.1 g/dL (3.5-5.0); Albumin Globulin Ratio 1.3 (1.0-2.8); Alkaline Phosphatase 92 U/L (38-126); Aspartate Aminotransferase 34 IU/L (17-59); BUN Creatinine Ratio 23.3 (6-22); Bilirubin Total 0.9 mg/dL (0.2-1.3); Blood Urea Nitrogen 17 mg/dL (9-20); Calcium 9.6 mg/dL (8.4-10.2); Carbon Dioxide 26 mmol/L (22-32); Chloride 103 mmol/L (98-107); Estimated Glomerular Filt Rate > 60.0 mL/min (>60); Globulin 3.2 g/dL (1.7-4.1); Glucose 106 mg/dL (80-110); HEMOLYSIS < 15 (0-50); Potassium 4.3 mmol/L (3.4-5.1); Sodium 137 mmol/L (137-145); Total Protein 7.3 g/dL (6.3-8.2)
[2020-10-23 12:45] LABS: Prostate Specific Antigen < 0.064 ng/mL (0.10-4.00)
[2020-10-23 13:02] LABS: Vitamin B12 521 pg/mL (239-931)
== END ==
PROVIDERS: PCP Family Medicine; Referring Provider Urology; Visit Provider Urology
DX: Z08 Encounter for follow-up examination after completed treatment for malignant neoplasm (principal); Z85.51 Personal history of malignant neoplasm of bladder
CPT/HCPCS: 36415; 71046; 80053; 82607; 84153

== ENCOUNTER → 2021-08-26 11:36 | Outpatient (CLI) | payer OTHER, SELFPAY ==
[2021-08-26 12:11] LABS: Add Manual Diff / Slide Review NO; Basophils Absolute Auto 0 /uL (0-100); Eosinophils Absolute Auto 200 /uL (0-450); Eosinophils Percent Auto 3.2 % (2-4); Hematocrit 33.1 % (41-53); Hemoglobin 11.1 g/dL (13.5-17.5); Lymphocytes Absolute Auto 1000 /uL (1100-4500); Lymphocytes Percent Auto 22.1 % (25-40); Mean Corpuscular HGB Conc 33.7 % (30-36); Mean Corpuscular Hemoglobin 29.5 PG (26-34); Mean Corpuscular Volume 87.6 fL (80-100); Monocytes Absolute Auto 600 /uL (0-900); Monocytes Percent Auto 12.7 % (3-14); Neutrophils Absolute Auto 2900 /uL (1500-7000); Platelet Count 339 X10^3/uL (150-400); Red Blood Cell Count 3.78 X10^6/uL (4.5-5.9); Red Cell Distribution Width 13.5 % (11.6-14.8); White Blood Cell Count 4.7 X10^3/uL (4.5-11.0)
[2021-08-26 12:18] LABS: Alanine Aminotransferase 18 IU/L (<50); Albumin 4.2 g/dL (3.5-5.0); Albumin Globulin Ratio 1.4 (1.0-2.8); Alkaline Phosphatase 84 U/L (38-126); Aspartate Aminotransferase 31 IU/L (17-59); BUN Creatinine Ratio 19.3 (6-22); Bilirubin Total 0.5 mg/dL (0.2-1.3); Blood Urea Nitrogen 16 mg/dL (9-20); Calcium 9.1 mg/dL (8.4-10.2); Carbon Dioxide 27 mmol/L (22-32); Chloride 102 mmol/L (98-107); Cholesterol 112 mg/dL (140-199); Estimated Glomerular Filt Rate > 60 mL/min (>60); Globulin 2.9 g/dL (1.7-4.1); Glucose 107 mg/dL (80-110); HDL Cholesterol 53 mg/dL (40-60); HEMOLYSIS < 15 (0-50); LDL Cholesterol Calculated 43 mg/dL (<100); Potassium 4.3 mmol/L (3.4-5.1); Sodium 139 mmol/L (137-145); Total Protein 7.1 g/dL (6.3-8.2); Triglycerides 80 mg/dL (35-150)
[2021-08-26 12:52] LABS: Ferritin 10 ng/mL (18-464)
== END ==
PROVIDERS: PCP Family Medicine; Referring Provider Family Medicine; Visit Provider Family Medicine
DX: E78.2 Mixed hyperlipidemia (principal); I10 Essential (primary) hypertension; F32.0 Major depressive disorder, single episode, mild
CPT/HCPCS: 36415; 80053; 80061; 82728; 84443; 85025

== ENCOUNTER → 2021-09-25 10:56 | Outpatient (CLI) | payer OTHER, SELFPAY ==
--- NOTE | 2021-09-25 11:02 | DI.RAD.S_ITS ---
PROCEDURE: XR CHEST 2V INDICATIONS: ROUTINE TECHNIQUE: 2 views of the chest were acquired. COMPARISON: [facility], CR, XR CHEST 2V, 10/23/2020, 11:44. FINDINGS: Surgical changes and devices: None. Lungs and pleura: Lungs are clear. No pleural effusions or pneumothorax. Mediastinum: Mediastinal contours are normal. Heart size is normal. Bones and chest wall: No suspicious bony abnormalities. Soft tissues appear unremarkable. Diffuse osteopenia. No acute compression fractures of the thoracic spine. Multilevel thoracic spondylosis. IMPRESSION: Stable radiographic evaluation of the chest without acute cardiopulmonary abnormalities or focal airspace disease. Dictated by: Jude Webb M.D. on 09/25/2021 at 17:04 Approved by: Jude Webb M.D. on 09/25/2021 at 17:04
[2021-09-25 13:16] LABS: Alanine Aminotransferase 19 IU/L (<50); Albumin Globulin Ratio 1.4 (1.0-2.8); Alkaline Phosphatase 74 U/L (38-126); Aspartate Aminotransferase 32 IU/L (17-59); BUN Creatinine Ratio 15.9 (6-22); Bilirubin Total 0.6 mg/dL (0.2-1.3); Blood Urea Nitrogen 13 mg/dL (9-20); Carbon Dioxide 28 mmol/L (22-32); Chloride 101 mmol/L (98-107); Estimated Glomerular Filt Rate > 60 mL/min (>60); Globulin 2.8 g/dL (1.7-4.1); Glucose 95 mg/dL (80-110); HEMOLYSIS < 15 (0-50); Potassium 4.5 mmol/L (3.4-5.1); Sodium 136 mmol/L (137-145); Total Protein 6.8 g/dL (6.3-8.2)
[2021-09-25 13:47] LABS: Prostate Specific Antigen < 0.064 ng/mL (0.10-4.00)
[2021-09-25 14:05] LABS: Vitamin B12 488 pg/mL (239-931)
== END ==
LOC: LAB 10:58 → RAD 11:01
PROVIDERS: PCP Family Medicine; Referring Provider Physician Assistant Medical; Visit Provider Physician Assistant Medical
DX: M47.814 Spondylosis without myelopathy or radiculopathy, thoracic region (principal); M85.80 Other specified disorders of bone density and structure, unspecified site; Z85.51 Personal history of malignant neoplasm of bladder
CPT/HCPCS: 36415; 71046; 80053; 82607; 84153

== ENCOUNTER → 2021-10-26 11:34 | Outpatient (CLI) | payer OTHER, SELFPAY ==
[2021-10-26 12:59] LABS: Hemoglobin 10.7 g/dL (13.5-17.5)
[2021-10-26 13:27] LABS: HEMOLYSIS < 15 (0-50); Iron 26 ug/dL (49-181)
[2021-10-26 13:39] LABS: Percent Iron Saturation 7 % (20-50); Total Iron Binding Capacity 386 ug/dL (261-462); Transferrin 290 mg/dL (206-381)
[2021-10-26 14:00] LABS: Ferritin 11 ng/mL (18-464)
== END ==
PROVIDERS: PCP Family Medicine; Referring Provider Family Medicine; Visit Provider Family Medicine
DX: D64.9 Anemia, unspecified (principal); R45.1 Restlessness and agitation
CPT/HCPCS: 36415; 82728; 83540; 83550; 85018

== ENCOUNTER → 2022-03-10 09:29 | Outpatient (CLI) | payer OTHER, SELFPAY ==
[2022-03-10 11:15] LABS: Hematocrit 30.5 % (41-53); Hemoglobin 10.3 g/dL (13.5-17.5); Mean Corpuscular HGB Conc 33.8 % (30-36); Mean Corpuscular Hemoglobin 29.6 PG (26-34); Mean Corpuscular Volume 87.6 fL (80-100); Platelet Count 323 X10^3/uL (150-400); Red Blood Cell Count 3.47 X10^6/uL (4.5-5.9); White Blood Cell Count 4.4 X10^3/uL (4.5-11.0)
[2022-03-10 11:16] LABS: Total Cells Counted 100
[2022-03-10 11:17] LABS: Anisocytosis 1+; Ovalocytes 1+; Poikilocytosis 1+
[2022-03-10 11:25] LABS: Neutrophils Absolute Manual 2816 /uL (3000-5900)
[2022-03-10 20:06] LABS: Ferritin 11 ng/mL (18-464)
[2022-03-10 22:40] LABS: HEMOLYSIS < 15 (0-50); Iron 22 ug/dL (49-181)
[2022-03-10 22:51] LABS: Percent Iron Saturation 5 % (20-50); Total Iron Binding Capacity 406 ug/dL (261-462); Transferrin 304 mg/dL (206-381)
== END ==
PROVIDERS: PCP Family Medicine; Referring Provider Family Medicine; Visit Provider Family Medicine
DX: D64.9 Anemia, unspecified (principal)
CPT/HCPCS: 36415; 82728; 83540; 83550; 85025

== ENCOUNTER → 2022-11-24 11:46 | Outpatient (CLI) | payer OTHER, SELFPAY ==
[2022-11-24 13:53] LABS: Vitamin B12 401 pg/mL (239-931)
== END ==
PROVIDERS: PCP Family Medicine; Referring Provider Physician Assistant Medical; Visit Provider Physician Assistant Medical
DX: Z85.528 Personal history of other malignant neoplasm of kidney (principal); Z85.51 Personal history of malignant neoplasm of bladder
CPT/HCPCS: 36415; 82607

== ENCOUNTER → 2022-12-08 10:16 | Outpatient (CLI) | payer OTHER, SELFPAY ==
[2022-12-08 13:37] LABS: Prostate Specific Antigen < 0.064 ng/mL (0.10-4.00)
== END ==
PROVIDERS: PCP Family Medicine; Referring Provider Physician Assistant Medical; Visit Provider Physician Assistant Medical
DX: Z85.528 Personal history of other malignant neoplasm of kidney (principal); Z85.51 Personal history of malignant neoplasm of bladder
CPT/HCPCS: 36415; 84153

== ENCOUNTER → 2023-03-03 10:23 | Outpatient (CLI) | payer OTHER, SELFPAY ==
[2023-03-03 11:12] LABS: Add Manual Diff / Slide Review NO; Basophils Absolute Auto 0 /uL (0-100); Basophils Percent Auto 0.7 % (0-2); Eosinophils Absolute Auto 100 /uL (0-450); Eosinophils Percent Auto 3.1 % (2-4); Hematocrit 35.9 % (41-53); Hemoglobin 11.8 g/dL (13.5-17.5); Lymphocytes Absolute Auto 900 /uL (1100-4500); Lymphocytes Percent Auto 18.6 % (25-40); Mean Corpuscular HGB Conc 32.9 % (30-36); Mean Corpuscular Hemoglobin 29.2 PG (26-34); Mean Corpuscular Volume 88.8 fL (80-100); Monocytes Absolute Auto 600 /uL (0-900); Monocytes Percent Auto 13.3 % (3-14); Neutrophils Absolute Auto 3000 /uL (1500-7000); Neutrophils Percent Auto 64.3 % (50-75); Platelet Count 285 X10^3/uL (150-400); Red Blood Cell Count 4.05 X10^6/uL (4.5-5.9); Red Cell Distribution Width 14.6 % (11.6-14.8); White Blood Cell Count 4.6 X10^3/uL (4.5-11.0)
[2023-03-03 11:29] LABS: Alanine Aminotransferase 23 IU/L (<50); Albumin 4.1 g/dL (3.5-5.0); Albumin Globulin Ratio 1.2 (1.0-2.8); Alkaline Phosphatase 87 U/L (38-126); Aspartate Aminotransferase 35 IU/L (17-59); BUN Creatinine Ratio 32.4 (6-22); Bilirubin Total 0.9 mg/dL (0.2-1.3); Blood Urea Nitrogen 24 mg/dL (9-20); Calcium 9.5 mg/dL (8.4-10.2); Carbon Dioxide 26 mmol/L (22-32); Chloride 104 mmol/L (98-107); Cholesterol 126 mg/dL (140-199); Estimated Glomerular Filt Rate > 60 mL/min (>60); Globulin 3.5 g/dL (1.7-4.1); Glucose 105 mg/dL (80-110); HDL Cholesterol 52 mg/dL (40-60); HEMOLYSIS < 15 (0-50); LDL Cholesterol Calculated 58 mg/dL (<100); Potassium 4.1 mmol/L (3.4-5.1); Sodium 136 mmol/L (137-145); Total Protein 7.6 g/dL (6.3-8.2); Triglycerides 78 mg/dL (35-150)
[2023-03-03 12:01] LABS: TSH w/ Reflex to FT4 1.17 uIU/mL (0.47-4.68)
== END ==
PROVIDERS: PCP Family Medicine; Referring Provider Family Medicine; Visit Provider Family Medicine
DX: E78.2 Mixed hyperlipidemia (principal); I10 Essential (primary) hypertension; D64.9 Anemia, unspecified
CPT/HCPCS: 36415; 80053; 80061; 84443; 85025

== ENCOUNTER → 2023-05-02 13:34 | Outpatient (CLI) | payer OTHER, SELFPAY ==
--- NOTE | 2023-05-02 13:51 | DI.ECHO.S_ITS ---
[facility] +---------+ : : [address] [address] : : : : [id number] : : : : Phone: [phone] Echocardiogram Report + + :Name: MITZY MARTE Study Date: 05/02/2023 Height: 65 in : :[facility] ReadingLocation: Weight: 160 lb: : Gender: Male BSA: 1.8 m2 : :: 1945 Age: 77 yrs BP: 99/65 mmHg: :Reason For Study: AORTIC STENOSIS : :Ordering Physician: CAYDEN, : :KARI Performed By: Hanh Moon : :Referring: KARI RODARTE : + + Interpretation Summary Normal left ventricle size with ejection fraction 65-70%. Severe aortic stenosis. The peak aortic velocity is 5.3 m/sec. (the previous exam was 3.1 m/sec.) The calculated aortic valve area is 0.69 cm2. Mild aortic regurgitation. Mild mitral annular calcification. Mild mitral regurgitation. Mild tricuspid regurgitation. The right ventricular systolic pressure is estimated to be at least 40 mmHg based on an estimated right atrial pressure of 8 mm Hg. Comparison is made with the echocardiogram of 03/09/2018, aortic stenosis has worsen significantly. Procedure: A two-dimensional transthoracic echocardiogram with color flow and Doppler was performed. The study quality was technically adequate. Comparison is made with the echocardiogram of 03/09/2018. The patient was in sinus rhythm with heart rates between 70-95 bpm during the exam. Left Ventricle: The left ventricle is normal in size and wall thickness. The ejection fraction is estimated to be 65-70%. There are no focal wall motion abnormalities. Right Ventricle: The right ventricle is normal in size and function. Atria: The left atrium is borderline dilated. Right atrial size is normal. There is no Doppler evidence for an interatrial shunt. Mitral Valve: There is mild mitral annular calcification. The mitral valve leaflets are mildly calcified. There is mild mitral regurgitation. Aortic Valve: The aortic valve is trileaflet. There is severely reduced leaflet mobility. There is severe aortic stenosis. The peak aortic velocity is 5.3 m/sec. The peak aortic velocity on the previous exam was 3.1 m/sec. The aortic valve mean gradient is 79 mmHg. The calculated aortic valve area is 0.69 cm2. There is mild aortic regurgitation. Tricuspid Valve: The tricuspid valve is normal in structure and function. There is mild tricuspid regurgitation. The right ventricular systolic pressure is estimated to be at least 40 mmHg based on an estimated right atrial pressure of 8 mm Hg. Pulmonic Valve: The pulmonic valve leaflets are thin and pliable; valve motion is normal. There is trace pulmonic regurgitation. Great Vessels: The aortic root is normal size. The dimensions of the ascending aorta are normal. The IVC is dilated (diameter is greater than 2.1 cm) yet it collapses greater than 50% with a sniff. This suggests a right atrial pressure of 8 mm Hg. Pericardium/ Pleura There is no pericardial effusion. There is no pleural effusion. MMode/2D Measurements & Calculations LVIDd: 4.3 cm LVOT diam: 2.0 cm LVIDs: 2.7 cm Ao root diam: 3.3 cm FS: 36.8 % asc Aorta Diam: 3.4 cm IVSd: 1.0 cm Ao Arch Diam (Prox Trans): 2.5 cm LVPWd: 0.85 cm LV batista. diameter/BSA (cm/m^2): 2.4 LV sys. diameter/BSA (cm/m^2): 1.5 LA A2 area: 19.6 cm2 RA long axis: 5.6 cm LA A4 area: 20.4 cm2 RA area: 17.3 cm2 LA length (vol): 5.6 cm RA vol: 45.3 ml LA vol: 60.4 ml RA : 25.2 ml/m2 LA vol index: 33.5 ml/m2 IVC diam: 2.1 cm RVD1 (basal): 3.7 cm RVD2 (mid): 3.2 cm TAPSE: 2.3 cm Doppler Measurements & Calculations Ao V2 max: 536.2 cm/sec LVOT Max Aleksander: 97.1 cm/sec Ao V2 mean: 385.0 cm/sec LV V1 max P.8 mmHg Ao max P.2 mmHg LV V1 VTI: 23.9 cm Ao mean P.3 mmHg STANISLAW(I,D): 0.69 cm2 Ao V2 VTI: 107.3 cm STANISLAW(V,D): 0.56 cm2 sev ratio: 0.22 STANISLAW indexed to BSA (cm^2/m^2): 0.38 MV E max aleksander: 104.1 cm/sec TR max aleksander: 282.4 cm/sec MV A max aleksander: 150.1 cm/sec TR max P.9 mmHg MV E/A: 0.69 PA V2 max: 134.0 cm/sec Med Peak E' Aleksander: 8.6 cm/sec PA V2 mean: 101.6 cm/sec E/E' med: 12.2 PA mean P.4 mmHg Lat Peak E' Aleksander: 7.5 cm/sec PA pr(Accel): 37.9 mmHg E/E' lat: 13.8 E/e' average: 13.0 MV dec time: 0.21 sec SV(LVOT): 73.5 ml Electronically signed by: Trey Lei on Reading Physician:05/02/2023 04:15 PM
== END ==
PROVIDERS: PCP Family Medicine; Referring Provider Family Medicine; Visit Provider Family Medicine
DX: I07.1 Rheumatic tricuspid insufficiency (principal); R01.1 Cardiac murmur, unspecified; I77.89 Other specified disorders of arteries and arterioles
CPT/HCPCS: 93306

== ENCOUNTER 2023-07-07 14:52 | Emergency (ER) | payer OTHER, SELFPAY ==
[2023-07-07 15:02] VITALS: BP 115/53; PULSE 81; RESP 18; TEMP 36.9; O2SAT 96; BMI 25.2
--- NOTE | 2023-07-07 15:05 | DI.CT.S_ITS ---
PROCEDURE: CT HEAD/BRAIN WO CON INDICATIONS: fall on thinners TECHNIQUE: Noncontrast 4.5 mm thick angled axial sections acquired from the foramen magnum to the vertex, with coronal and sagittal reformats. For radiation dose reduction, the following was used: automated exposure control, adjustment of mA and/or kV according to patient size. COMPARISON: None. FINDINGS: Image quality: Diagnostic. CSF spaces: Basal cisterns are patent. No extra-axial fluid collections. The ventricles are symmetric in size and shape. Brain: No intracranial bleeds or masses. There is cerebral volume loss for age, with resultant ventricular and sulcal prominence. There are periventricular and deep white matter chronic small vessel ischemic changes. There is intracranial internal carotid artery atherosclerosis. Skull and face: Calvarium and visualized facial bones appear intact, without suspicious lesions. Sinuses: Visualized sinuses and mastoids are clear. IMPRESSION: No acute intracranial pathology. Dictated by: Lupe Phillips MD, PhD on 07/07/2023 at 15:23 Approved by: Lupe Phillips MD, PhD on 07/07/2023 at 15:25
--- NOTE | 2023-07-07 15:05 | DI.CT.S_ITS ---
PROCEDURE: CT CERVICAL SPINE WO CON INDICATIONS: fall on thinners TECHNIQUE: Noncontrast 3 mm thick sections acquired from the skull base to the T4 level. Sagittal and coronal reformats were then constructed. For radiation dose reduction, the following was used: automated exposure control, adjustment of mA and/or kV according to patient size. COMPARISON: None. FINDINGS: Image quality: Excellent. Bones: No fractures or dislocations. Visualized superior ribs are intact. Spine degenerative disc disease and facet arthropathy. Chronic posterior left 5th and 6th rib fractures. Soft tissues: Prevertebral soft tissues are normal in thickness. No paravertebral hematomas. No apical pneumothoraces. IMPRESSION: No fracture. No acute osseous lesion. If symptoms and/or clinical suspicion for pathology persists, evaluation with MRI should be considered for further assessment. Dictated by: Lupe Phillips MD, PhD on 07/07/2023 at 15:25 Approved by: Lupe Phillips MD, PhD on 07/07/2023 at 15:29
--- NOTE | 2023-07-07 15:50 | ED.HEATRA ---
HPI - Head Injury General Chief complaint: Trauma Stated complaint: Fall, hit back of head on stairs on plavix Time Seen by Provider: 07/07/23 15:17 Source: patient Mode of arrival: Ambulatory History of Present Illness HPI Narrative: Patient is a 77-year-old male history of hypertension aortic valve repair on Plavix presents today after slip and fall. He reports that he has neuropathy in his feet he slipped on 1 stair he fell back and hit his head. No loss of consciousness no numbness or tingling no nausea or vomiting. He is noted to have hives on his arms. He reports that this happens frequently from stress, he denies any itchiness or difficulty breathing he does not want anything for the hives. Related Data Home Medications Medication Instructions Recorded Confirmed multivitamin 1 tab PO DAILY ##0 01/20/11 06/30/23 cholecalciferol (vitamin D3) 50 2,000 unit PO DAILY 10/13/18 06/30/23 mcg (2,000 unit) capsule (Vitamin D3) ferrous sulfate 325 mg (65 mg 325 mg PO DAILY 03/03/20 06/30/23 iron) tablet (iron) clopidogrel 75 mg tablet 75 mg PO DAILY 06/30/23 06/30/23 famotidine 20 mg tablet 20 mg PO DAILY 06/30/23 06/30/23 pantoprazole 40 mg tablet,delayed 40 mg PO DAILY 06/30/23 06/30/23 release Previous Rx's Medication Instructions Recorded atorvastatin 40 mg tablet See Rx Instructions .Route 03/10/23 .COMPLEX #90 tabs lisinopril 20 See Rx Instructions .Route 03/10/23 mg-hydrochlorothiazide 12.5 mg .COMPLEX #90 tabs tablet pramipexole 0.5 mg tablet 0.5 mg PO DAILY #90 tabs 03/29/23 Allergies Allergy/AdvReac Type Severity Reaction Status Date / Time Sulfa (Sulfonamide Allergy Mild SEVERE Verified 06/30/23 11:41 Antibiotics) HEADACHE [SULFA (SULFONAMIDE ANTIBIOTICS)] Patient History Medical History Aortic valve stenosis RLS (restless legs syndrome) (2011) Lumbar spine pain (1978) Wrist fracture (1968) Positive PPD (1953) Anemia (2010) Chicken pox (1952) Urinary incontinence (2010) Mumps (1954) Acne (1958) Eczema (1983) Chronic back pain (1969) Migraines (1957) Hayfever (2006) Hyperlipidemia Hypertension Prostate cancer (2010) Bladder cancer (2010) Surgical History History of colonoscopy (12/05/09) Anesthesia Status post radical cystoprostatectomy (02/08/11) Status post laminectomy (1980) Status post appendectomy (1965) Family History Brother Age: 72 Overweight Brother Age: 62 Diabetes mellitus Hypertension High cholesterol Father High cholesterol Heart disease Pneumonia [place] (myocardial infarction) Mother Cancer Heart disease Hypertension Stroke Congestive heart failure Son No problems noted. Daughter No problems noted. Sister No problems noted. Social History marital status: household members: spouse Smoking Status: Former smoker alcohol intake: current substance use type: does not use Smoking Status: Former smoker alcohol intake frequency: holidays/special occasions only Substance Use Type: marijuana Exam Initial Vital Signs Initial Vital Signs: Vital Signs Temperature 98.5 F 07/07/23 15:02 Pulse Rate 81 07/07/23 15:02 Respiratory Rate 18 07/07/23 15:02 Blood Pressure 115/53 L 07/07/23 15:02 Pulse Oximetry 96 07/07/23 15:02 Oxygen Delivery Method Room Air 07/07/23 15:02 GENERAL: Alert pleasant well-appearing 77-year-old male HEENT: Head atraumatic,EOMI, pupils reactive, face symmetric, moist mucous membranes CARDIOVASCULAR: Regular rate and rhythm without murmurs, rubs or gallops. RESPIRATORY: Breath sounds equal bilaterally, no wheezes rales or rhonchi. EXTREMITIES: Normal range of motion, no clubbing or edema. Neurovascularly intact NEUROLOGICAL: Alert and oriented x4.Normal gait and speech. Cranial nerves II through XII grossly intact. SKIN: Warm, dry, no laceration, no petechiae, no rashes or lesions. Course Orders Ordered: ED Orders 07/07/23 15:05 CT cervical spine wo con Stat CT head/brain wo con Stat Vital Signs Vital signs: Vital Signs - 8 hr 07/07/23 15:02 07/07/23 16:09 Temperature 98.5 F Pulse Rate 81 77 Respiratory Rate 18 17 Blood Pressure 115/53 L 105/53 L Pulse Oximetry 96 99 Oxygen Delivery Method Room Air Room Air MDM - Head Injury Imaging Data CT - cervical spine: Radiologist's Impression: PROCEDURE: CT CERVICAL SPINE WO CON INDICATIONS: fall on thinners TECHNIQUE: Noncontrast 3 mm thick sections acquired from the skull base to the T4 level. Sagittal and coronal reformats were then constructed. For radiation dose reduction, the following was used: automated exposure control, adjustment of mA and/or kV according to patient size. COMPARISON: None. FINDINGS: Image quality: Excellent. Bones: No fractures or dislocations. Visualized superior ribs are intact. Spine degenerative disc disease and facet arthropathy. Chronic posterior left 5th and 6th rib fractures. Soft tissues: Prevertebral soft tissues are normal in thickness. No paravertebral hematomas. No apical pneumothoraces. IMPRESSION: No fracture. No acute osseous lesion. If symptoms and/or clinical suspicion for pathology persists, evaluation with MRI should be considered for further assessment. Dictated by: Lupe Phillips MD, PhD on 07/07/2023 at 15:25 Approved by: Lupe Phillips MD, PhD on 07/07/2023 at 15:29 CT scan - head: Radiologist's Impression: PROCEDURE: CT HEAD/BRAIN WO CON INDICATIONS: fall on thinners TECHNIQUE: Noncontrast 4.5 mm thick angled axial sections acquired from the foramen magnum to the vertex, with coronal and sagittal reformats. For radiation dose reduction, the following was used: automated exposure control, adjustment of mA and/or kV according to patient size. COMPARISON: None. FINDINGS: Image quality: Diagnostic. CSF spaces: Basal cisterns are patent. No extra-axial fluid collections. The ventricles are symmetric in size and shape. Brain: No intracranial bleeds or masses. There is cerebral volume loss for age, with resultant ventricular and sulcal prominence. There are periventricular and deep white matter chronic small vessel ischemic changes. There is intracranial internal carotid artery atherosclerosis. Skull and face: Calvarium and visualized facial bones appear intact, without suspicious lesions. Sinuses: Visualized sinuses and mastoids are clear. IMPRESSION: No acute intracranial pathology. Dictated by: Lupe Phillips MD, PhD on 07/07/2023 at 15:23 MDM Narrative Medical decision making narrative: Patient is 77-year-old male history of diabetes with neuropathy hypertension hyperlipidemia presenting today after fall down 1 stair. He reports that he just slipped down 1 stair he did not hit his head. No loss of conscious no nausea or vomiting no focal deficits or neurologic deficits. Head CT and CT cervical spine are negative. He was noted to have slightly low blood pressure in 95 but repeat was 104. He has not dizzy or lightheaded. He reports that sometimes his blood pressure does go down briefly but normal blood pressure is about 100-110. He is asymptomatic this time. He has obvious hives on his arms but does not want anything for that. Discharge Plan Departure Patient Disposition: Home Clinical Impression: Closed head injury Instructions: DI for Closed Head Injury Activity Restrictions/Additional Instructions: *You have been diagnosed with closed head injury *What to do: At this time head scan is negative. You may experience some mild headache. *Continue to take medications as directed Tylenol 650 mg every 4-6 hours for [id number]-er-[id number] pain *Follow up with your primary care provider in 2-3 days or call [phone] *Return to ER if you should have increasing pain nausea vomiting confusion or any new, worsening or concerning symptoms Prescriptions: No Action multivitamin Tablet 1 tab PO DAILY Qty: 0 atorvastatin 40 mg tablet See Rx Instructions .ROUTE .COMPLEX Qty: 90 3RF Dose Instruction: Take 1 tablet (40 mg) by mouth daily Rx Instructions: Take 1 tablet (40 mg) by mouth daily lisinopril-hydrochlorothiazide 20-12.5 mg tablet See Rx Instructions .ROUTE .COMPLEX Qty: 90 3RF Dose Instruction: Take 1 tablet by mouth every evening Rx Instructions: Take 1 tablet by mouth every evening pramipexole 0.5 mg tablet 0.5 mg PO DAILY Qty: 90 1RF pantoprazole 40 mg tablet,delayed release (DR/EC) 40 mg PO DAILY famotidine 20 mg tablet 20 mg PO DAILY clopidogrel 75 mg tablet 75 mg PO DAILY cholecalciferol (vitamin D3) [Vitamin D3] 2,000 unit Capsule 2,000 unit PO DAILY ferrous sulfate [iron] 325 mg (65 mg iron) Tablet 325 mg PO DAILY Referrals: Odell Allen MD [Primary Care Provider] - Stand Alone Forms: Patient Portal/API
[2023-07-07 16:09] VITALS: BP 105/53; PULSE 77; RESP 17; O2SAT 99
== END 2023-07-07 16:11 | disposition home or self-care (01) ==
PROVIDERS: Emergency Provider Emergency Medicine; PCP Family Medicine
DX: S09.90XA Unspecified injury of head, initial encounter (principal); W01.0XXA Fall on same level from slipping, tripping and stumbling without subsequent striking against object, initial encounter; Z79.01 Long term (current) use of anticoagulants
CPT/HCPCS: 36415; 70450; 72125; 99284

== ENCOUNTER 2023-07-19 08:13 | Emergency (ER) | payer OTHER, SELFPAY ==
[2023-07-19 08:31] VITALS: BP 107/63; PULSE 94; RESP 16; TEMP 36.2; O2SAT 98; BMI 25.7
--- NOTE | 2023-07-19 08:55 | ED.BACK ---
HPI - Back Pain/Injury General Chief Complaint: Back Pain/Injury Stated Complaint: sore neck Time Seen by Provider: 07/19/23 08:43 Source: patient and family History of Present Illness HPI Narrative: Patient here with . is driving. Patient just saw primary care, Dr. Allen yesterday for neck and back pain. Prescribed Flexeril. He was up all night. Medication did not work. 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 However because of the neuropathy he has to use a lot of strength upper extremities and neck to get off the floor. This has been more arduous in the past few days. No saddle paresthesia no bowel or bladder incontinence. No retention. Patient states pain radiates to both of his hands. Otherwise no back pain or chest pain. Patient seen here 12 days ago for ground level fall. Had CT imaging of the cervical spine. Does show degenerative disc disease. However patient denies denies any neck pain from the fall or even after the fall. Please [place] [address] CT Scan Report Signed Patient: Adam Kim MR#: [id number] : 1945 Acct:[id number] Age/Sex: 77 / M Date of Service: 07/07/23 Loc: ED Accession Number: [id number] Procedure: CT cervical spine wo con Ordering Provider: Christa Andres D.O. PROCEDURE: CT CERVICAL SPINE WO CON INDICATIONS: fall on thinners TECHNIQUE: Noncontrast 3 mm thick sections acquired from the skull base to the T4 level. Sagittal and coronal reformats were then constructed. For radiation dose reduction, the following was used: automated exposure control, adjustment of mA and/or kV according to patient size. COMPARISON: None. FINDINGS: Image quality: Excellent. Bones: No fractures or dislocations. Visualized superior ribs are intact. Spine degenerative disc disease and facet arthropathy. Chronic posterior left 5th and 6th rib fractures. Soft tissues: Prevertebral soft tissues are normal in thickness. No paravertebral hematomas. No apical pneumothoraces. IMPRESSION: No fracture. No acute osseous lesion. If symptoms and/or clinical suspicion for pathology persists, evaluation with MRI should be considered for further assessment. Dictated by: Lupe Phillips MD, PhD on 07/07/2023 at 15:25 Approved by: Lupe Phillips MD, PhD on 07/07/2023 at 15:29 Related Data Home Medications Medication Instructions Recorded Confirmed multivitamin 1 tab PO DAILY ##0 01/20/11 06/30/23 cholecalciferol (vitamin D3) 50 2,000 unit PO DAILY 10/13/18 06/30/23 mcg (2,000 unit) capsule (Vitamin D3) ferrous sulfate 325 mg (65 mg 325 mg PO DAILY 03/03/20 06/30/23 iron) tablet (iron) clopidogrel 75 mg tablet 75 mg PO DAILY 06/30/23 06/30/23 famotidine 20 mg tablet 20 mg PO DAILY 06/30/23 06/30/23 pantoprazole 40 mg tablet,delayed 40 mg PO DAILY 06/30/23 06/30/23 release vitamin A-vitamin C-vit E-min 1 tab PO DAILY 07/18/23 07/18/23 tablet Previous Rx's Medication Instructions Recorded atorvastatin 40 mg tablet See Rx Instructions .Route 03/10/23 .COMPLEX #90 tabs lisinopril 20 See Rx Instructions .Route 03/10/23 mg-hydrochlorothiazide 12.5 mg .COMPLEX #90 tabs tablet pramipexole 0.5 mg tablet 0.5 mg PO DAILY #90 tabs 03/29/23 cyclobenzaprine 5 mg tablet 5 mg PO BID PRN muscle spasm #20 07/18/23 tabs hydrocodone 5 mg-acetaminophen 325 1 tab PO Q6H PRN pain #18 tabs 07/19/23 mg tablet Allergies Allergy/AdvReac Type Severity Reaction Status Date / Time Sulfa (Sulfonamide Allergy Mild SEVERE Verified 07/18/23 13:28 Antibiotics) HEADACHE [SULFA (SULFONAMIDE ANTIBIOTICS)] Review of Systems Review of Systems Narrative: GENERAL: negative chills, fatigue, malaise, fever, sweats. HEENT: negative sinus pain, ear pain, sore throat RESPIRATORY: negative dyspnea, cough CARDIOVASCULAR: negative chest pain, palpitations GASTROINTESTINAL: negative nausea, vomiting, abdominal pain : negative dysuria, frequency, hematuria MUSCULOSKELETAL: Positive muscle or bony pain SKIN: negative rash, skin lesions NEUROLOGIC: negative weakness, numbness ROS Unobtainable: All systems reviewed & are unremarkable except as noted in HPI and below Patient History Medical History Aortic valve stenosis RLS (restless legs syndrome) (2011) Lumbar spine pain (1978) Wrist fracture (1968) Positive PPD (1953) Anemia (2010) Chicken pox (1952) Urinary incontinence (2010) Mumps (1953) Acne (1958) Eczema (1983) Chronic back pain (1969) Migraines (1957) Hayfever (2006) Hyperlipidemia Hypertension Prostate cancer (2010) Bladder cancer (2010) Surgical History History of colonoscopy (12/05/09) Anesthesia Status post radical cystoprostatectomy (02/08/11) Status post laminectomy (1980) Status post appendectomy (1965) Family History Brother Age: 72 Overweight Brother Age: 62 Diabetes mellitus Hypertension High cholesterol Father High cholesterol Heart disease Pneumonia [place] (myocardial infarction) Mother Cancer Heart disease Hypertension Stroke Congestive heart failure Son No problems noted. Daughter No problems noted. Sister No problems noted. Social History marital status: household members: spouse Smoking Status: Former smoker alcohol intake: current substance use type: does not use Smoking Status: Former smoker alcohol intake frequency: holidays/special occasions only Substance Use Type: marijuana Exam Narrative Exam Narrative: GENERAL: in no distress, not toxic not dyspneic HEAD: Normocephalic. EYES: Pupils equal round ENT: Mucous membranes moist. NECK: Trachea midline. Reproducible bilateral paracervical muscle tenderness and midline tenderness. Increased pain with rotating attempt to left and right and flexing up and down. CARDIOVASCULAR: Regular rate and rhythm RESPIRATORY: Clear to auscultation. Breath sounds equal bilaterally. No wheezes, rales, or rhonchi. GASTROINTESTINAL: Abdomen soft, non-tender EXTREMITIES: No gross deformities. Hands warm soft and pink brisk cap refills strong radial pulses BACK: No flank tenderness. NEURO: AOx4. 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 Light touch intact do thumbs and fingers. SKIN: Warm and dry PSYCH: Not anxious, is cooperative Initial Vital Signs Initial Vital Signs: Vital Signs Temperature 97.1 F L 07/19/23 08:31 Pulse Rate 94 H 07/19/23 08:31 Respiratory Rate 16 07/19/23 08:31 Blood Pressure 107/63 07/19/23 08:31 Pulse Oximetry 98 07/19/23 08:31 Oxygen Delivery Method Room Air 07/19/23 08:31 Course Orders Ordered: Discontinued Medications Hydrocodone Bitart/Acetaminophen (Hydrocodone/Acet 5/325 Tablet) 1 tab PO NOW ONE Stop: 07/19/23 09:00 Last Admin: 07/19/23 09:11 Dose: 1 tab Documented By: CODY Methylprednisolone (Methylprednisolone 125 Mg/2 Ml Vial) 125 mg IV NOW ONE Stop: 07/19/23 09:00 Last Admin: 07/19/23 09:11 Dose: 125 mg Documented By: CODY Ondansetron HCl (Ondansetron 4 Mg/2 Ml Inj) 4 mg IV NOW ONE Stop: 07/19/23 09:00 Last Admin: 07/19/23 09:11 Dose: 4 mg Documented By: CODY Vital Signs Vital signs: Vital Signs - 8 hr 07/19/23 08:31 Temperature 97.1 F L Pulse Rate 94 H Respiratory Rate 16 Blood Pressure 107/63 Pulse Oximetry 98 Oxygen Delivery Method Room Air MDM - Back Pain/Injury MDM Narrative Medical decision making narrative: Patient here with . is driving. Patient just saw primary care, Dr. Allen yesterday for neck and back pain. Prescribed Flexeril. He was up all night. Medication did not work. 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 However because of the neuropathy he has to use a lot of strength upper extremities and neck to get off the floor. This has been more arduous in the past few days. No saddle paresthesia no bowel or bladder incontinence. No retention. Patient states pain radiates to both of his hands. Otherwise no back pain or chest pain. Patient seen here 12 days ago for ground level fall. Had CT imaging of the cervical spine. Does show degenerative disc disease. However patient denies denies any neck pain from the fall or even after the fall. Please see CT results below After history and exam MDM Medical records reviewed: ER visit here July 07, [address] imaging Differential considered: Includes but not limited to cervical strain cervical radiculopathy Imaging studies independently reviewed: CT cervical spine from July 07, 2023 Consultations: 9:[address] Allen, agrees Solu-Medrol to be given here and short course of hydrocodone. He will follow up with patient. Treatments: Solu-Medrol Zofran [place] Re-evaluations: Pain is controlled. I did review with patient results and my discussion with Dr. Allen. He does agree with treatment plan. He will stop Flexeril at this time. He agrees with short course of pain medication. Return precautions reviewed. Nontoxic at discharge. They desire discharge home. is driving. Discussion: Appropriate for discharge home. No blood work or imaging indicated. Patient likely clinically has cervical strain/cervical radiculopathy.. Short course of pain medication provided. Return precautions reviewed. Primary Care was contacted. Nontoxic at discharge. CT imaging does show degenerative disc disease. Patient likely has cervical radiculopathy of the, nerves being compressed/pinched radiating to the arms. Diagnosis: Cervical strain/cervical radiculopathy Discharge Plan Departure Patient Disposition: Home Clinical Impression: Cervical radiculopathy Acute cervical myofascial strain Qualifiers: Encounter type: initial encounter Qualified Code(s): S16.1XXA - Strain of muscle, fascia and tendon at neck level, initial encounter Instructions: DI for Cervical Radiculopathy, DI for Cervical Muscle Strain Activity Restrictions/Additional Instructions: No driving operating machinery today or when taking prescribed pain medication. Do not use prescribed pain medication from today with the medication/Flexeril/cyclobenzaprine that was given to you by Dr. Allen yesterday. See family doctor within a week for re-evaluation. Return if worse if any questions or concerns. Prescriptions: New hydrocodone-acetaminophen 5-325 mg tablet 1 tab PO Q6H PRN (Reason: pain) Qty: 18 0RF No Action multivitamin Tablet 1 tab PO DAILY Qty: 0 atorvastatin 40 mg tablet See Rx Instructions .ROUTE .COMPLEX Qty: 90 3RF Dose Instruction: Take 1 tablet (40 mg) by mouth daily Rx Instructions: Take 1 tablet (40 mg) by mouth daily lisinopril-hydrochlorothiazide 20-12.5 mg tablet See Rx Instructions .ROUTE .COMPLEX Qty: 90 3RF Dose Instruction: Take 1 tablet by mouth every evening Rx Instructions: Take 1 tablet by mouth every evening pramipexole 0.5 mg tablet 0.5 mg PO DAILY Qty: 90 1RF vitamin A-vitamin C-vit E-min Tablet 1 tab PO DAILY cyclobenzaprine 5 mg tablet 5 mg PO BID PRN (Reason: muscle spasm) Qty: 20 0RF pantoprazole 40 mg tablet,delayed release (DR/EC) 40 mg PO DAILY famotidine 20 mg tablet 20 mg PO DAILY clopidogrel 75 mg tablet 75 mg PO DAILY cholecalciferol (vitamin D3) [Vitamin D3] 2,000 unit Capsule 2,000 unit PO DAILY ferrous sulfate [iron] 325 mg (65 mg iron) Tablet 325 mg PO DAILY Referrals: Odell Allen MD [Primary Care Provider] - Stand Alone Forms: Patient Portal/API
--- NOTE | 2023-07-19 08:58 | PC.NURSE ---
Pt came to ED today because he has been experiencing ongoing tension headache, neck and lower back pain that radiates to his legs. Pt has hx of falls and has been working with PT. Recently started doing PT exercises on the floor at home. Seen by pcp yesterday and was prescribed muscle relaxers. Pt states that he is not feeling any relief and his neck and [place] are worse today. Pt has difficulty turning his head from left to right and required assistance from wheelchair to bed. States that he feels very stiff and sore. Denies any dizziness/lightheaded. Hx HTN, aortic valve replacement 06/14/2023.
[2023-07-19] MEDS: methylPREDNISolone 125 MG/2 ML VIAL IV (09:11)
[2023-07-19] MEDS: ONDANSETRON 4 MG/2 ML INJ IV (09:11)
[2023-07-19] MEDS: HYDROCODONE/ACET 5/325 TABLET 1 TAB PO (09:11)
[2023-07-19 09:13] VITALS: BP 127/62; PULSE 82; RESP 17; O2SAT 99
== END 2023-07-19 09:28 | disposition home or self-care (01) ==
PROVIDERS: Emergency Provider Emergency Medicine; PCP Family Medicine
DX: S16.1XXA Strain of muscle, fascia and tendon at neck level, initial encounter (principal); M54.12 Radiculopathy, cervical region
CPT/HCPCS: 36415; 96374; 96375; 99284; J2405; J2919

== ENCOUNTER → 2023-07-20 11:16 | Outpatient (CLI) | payer OTHER, SELFPAY ==
[2023-07-20 13:25] LABS: Add Manual Diff / Slide Review NO; Basophils Absolute Auto 0 /uL (0-100); Basophils Percent Auto 0.3 % (0-2); Eosinophils Absolute Auto 0 /uL (0-450); Eosinophils Percent Auto 0.3 % (2-4); Hematocrit 31.3 % (41-53); Hemoglobin 10.5 g/dL (13.5-17.5); Lymphocytes Absolute Auto 1000 /uL (1100-4500); Lymphocytes Percent Auto 11.9 % (25-40); Mean Corpuscular HGB Conc 33.6 % (30-36); Mean Corpuscular Hemoglobin 29.4 PG (26-34); Mean Corpuscular Volume 87.5 fL (80-100); Monocytes Absolute Auto 1000 /uL (0-900); Monocytes Percent Auto 11.5 % (3-14); Neutrophils Absolute Auto 6600 /uL (1500-7000); Platelet Count 391 X10^3/uL (150-400); Red Blood Cell Count 3.58 X10^6/uL (4.5-5.9); Red Cell Distribution Width 13.8 % (11.6-14.8); White Blood Cell Count 8.7 X10^3/uL (4.5-11.0)
[2023-07-20 13:34] LABS: Hemoglobin A1C% w Est Avg Glu 5.7 % (4.0-6.0)
[2023-07-20 13:48] LABS: Blood Urea Nitrogen 30 mg/dL (9-20); Calcium 9.6 mg/dL (8.4-10.2); Carbon Dioxide 26 mmol/L (22-32); Chloride 106 mmol/L (98-107); Estimated Glomerular Filt Rate > 60 mL/min (>60); Glucose 106 mg/dL (80-110); HEMOLYSIS < 15 (0-50); Potassium 3.7 mmol/L (3.4-5.1); Sodium 138 mmol/L (137-145)
== END ==
PROVIDERS: PCP Family Medicine; Referring Provider Internal Medicine Interventional Cardiology; Visit Provider Internal Medicine Interventional Cardiology
DX: I35.0 Nonrheumatic aortic (valve) stenosis (principal); M54.50 Low back pain, unspecified; Z95.2 Presence of prosthetic heart valve
CPT/HCPCS: 36415; 80048; 83036; 85025

== ENCOUNTER → 2023-08-05 08:44 | Outpatient (CLI) | payer OTHER, SELFPAY ==
--- NOTE | 2023-08-05 08:46 | DI.MRI.S_ITS ---
PROCEDURE: MR CERVICAL SPINE WO CON INDICATIONS: significant falls with neuropathy and myelopathy TECHNIQUE: Noncontrast sagittal T1 spin echo and T2 fast spin echo, sagittal STIR, foraminal oblique sagittal T2 fast spin echo, and axial gradient echo or T2 fast spin echo through the cervical spine. COMPARISON: None. FINDINGS: Image quality: This examination is limited by involuntary motion artifact. Alignment and Curvature: There is normal bony alignment. Bone Marrow: Marrow demonstrates normal overall signal. Spinal Cord: Visualized spinal cord has normal size and signal. No cerebellar tonsillar herniation. Paraspinous Soft Tissues: No paravertebral masses. Prevertebral soft tissues are normal in thickness. C2-C3: The disc height is well-preserved. Loss of disc signal is seen at this level. Mild generalized disc bulge is seen. Mild to moderate facet hypertrophy is seen. There is moderate to severe left-sided and moderate right-sided neural foraminal narrowing. No significant central canal narrowing is seen. C3-C4: At least moderate loss of disc height and disc signal can be seen. Moderate generalized disc osteophyte complex is seen. Moderate facet joint hypertrophy is seen. Moderate to severe bilateral neural foraminal narrowing is seen. Moderate central canal narrowing is seen. There is associated mass effect upon the ventral spinal cord. C4-C5: The disc height is well-preserved. Loss of disc signal is seen at this level. To moderate disc osteophyte complex is seen. At least moderate facet hypertrophy is seen at this level. Moderate to severe bilateral neural foraminal narrowing can be seen. Mild to moderate central canal narrowing is seen. C5-C6: At least moderate loss of disc height and disc signal can be seen. Moderate generalized disc osteophyte complex is seen, which is eccentric to the right. Moderate facet hypertrophy is seen, left worse than right. Moderate to severe bilateral neural foraminal narrowing is seen. Moderate central canal narrowing is seen. There is associated mass effect upon the ventral spinal cord. C6-C7: Moderate to severe loss of disc height and disc signal can be seen. Moderate disc osteophyte complex is seen, with a central disc osteophyte protrusion. Mild facet joint hypertrophy is seen. Moderate to severe bilateral neural foraminal narrowing can be seen. Moderate central canal narrowing is seen. There is associated mass effect upon the ventral spinal cord. C7-T1: No significant abnormality is seen. IMPRESSION: Multiple levels of significant cervical spine degenerative change can be seen, which are overall worst at C5-C6 and C6-C7. Dictated by: Kameron Dior M.D. on 08/05/2023 at 16:52 Approved by: Kameron Dior M.D. on 08/05/2023 at 16:56
--- NOTE | 2023-08-05 08:46 | DI.MRI.S_ITS ---
PROCEDURE: MR LUMBAR SPINE WO CON INDICATIONS: significant falls with neuropathy and myelopathy TECHNIQUE: Noncontrast sagittal T1 spin echo and T2 fast echo, sagittal STIR, and T2 fast spin echo through the lumbar spine. In cases with scoliosis, additional coronal T2 fast spin echo may be performed. COMPARISON: [facility], MR, MR CERVICAL SPINE WO CON, 08/05/2023, 9:17. [facility], CT, ABDOMEN/PELVIS WITH CONTRAST, 10/02/2014, 5:12. FINDINGS: Image quality: This examination is limited by involuntary motion artifact. Alignment and Curvature: S-shaped scoliotic curvature is seen. Bone Marrow: Marrow is of normal overall signal. No acute vertebral body compression fractures. Spinal Cord: Conus medullaris terminates at the L1 level. Visualized cord demonstrates normal signal and size. Paraspinous Soft Tissues: No paravertebral masses. There is a water signal left renal cyst seen inferiorly. T12-L1: Mild loss of disc height is seen. Loss of disc signal is seen. Mild to moderate disc bulge is seen, with a central disc protrusion. Mild facet joint hypertrophy is seen. Associated hypertrophy of the ligamentum flavum can be seen. There is moderate right-sided and at least moderate left-sided neural foraminal narrowing. At least moderate central canal narrowing is seen, as on series 10, image 3. L1-L2: At least moderate loss of disc height and disc signal can be seen. Reactive marrow endplate changes are seen, which are hyperintense on T1-weighted and T2-weighted imaging and most consistent with fatty metaplasia (Modic type II changes). Moderate generalized disc bulge is seen. There is a central disc osteophyte protrusion. There is at least moderate bilateral neural foraminal narrowing. At least moderate central canal narrowing is seen at this level. L2-L3: Moderate loss of disc height is seen. Loss of disc signal is seen. Moderate generalized disc bulge is seen. There is a central disc osteophyte protrusion. Moderate facet joint hypertrophy is seen. Associated hypertrophy of the ligamentum flavum can be seen. There is severe right-sided and moderate to severe left-sided neural foraminal narrowing. There is a degree of compression seen upon the exiting nerve roots. Severe central canal narrowing is seen, as on series 10, image 11. L3-L4: Moderate loss of disc height is seen. Loss of disc signal is seen. Moderate generalized disc bulge is seen. There is a central disc osteophyte extrusion, with superior migration of the disc material, as seen on series 5, image 10. Moderate facet joint hypertrophy is seen. Associated hypertrophy of the ligamentum flavum can be seen. There is severe right-sided and moderate to severe left-sided neural foraminal narrowing. There is severe central canal narrowing, as on series 10, image 17. L4-L5: Moderate to severe loss of disc height and disc signal can be seen. Postoperative change can be seen, with prior right-sided hemilaminectomy. Moderate generalized disc bulge is seen. Moderate facet joint hypertrophy is seen. There is moderate to severe bilateral neural foraminal narrowing seen, with an associated degree of compression seen upon the exiting nerve roots. Moderate central canal narrowing is seen. L5-S1: Mild loss of disc height is seen. Loss of disc signal is seen. Mild to moderate disc bulge is seen, with a central disc protrusion. Moderate facet joint hypertrophy is seen. There is moderate to severe bilateral neural foraminal narrowing seen, with an associated degree of compression seen upon the exiting nerve roots. Moderate central canal narrowing is seen. IMPRESSION: Multiple levels of prominent lumbar spine degenerative change can be seen. There is severe central canal narrowing at L2-L3 and at L3-L4. Several sites of significant neural foraminal narrowing can be seen, with associated exiting nerve root compression. S-shaped scoliotic curvature is seen. Dictated by: Kameron Dior M.D. on 08/05/2023 at 16:46 Approved by: Kameron Dior M.D. on 08/05/2023 at 16:52
== END ==
PROVIDERS: PCP Family Medicine; Referring Provider Family Medicine; Visit Provider Family Medicine
DX: M54.16 Radiculopathy, lumbar region (principal); M54.12 Radiculopathy, cervical region; G95.9 Disease of spinal cord, unspecified; R29.6 Repeated falls; M48.061 Spinal stenosis, lumbar region without neurogenic claudication; M41.86 Other forms of scoliosis, lumbar region; M50.30 Other cervical disc degeneration, unspecified cervical region; M51.36 Other intervertebral disc degeneration, lumbar region
CPT/HCPCS: 72141; 72148

== ENCOUNTER → 2023-09-06 08:44 | Outpatient (CLI) | payer OTHER, SELFPAY ==
--- NOTE | 2023-09-06 08:45 | DI.RAD.S_ITS ---
PROCEDURE: XR LUMBAR SPINE MIN 4V INDICATIONS: BACK PAIN TECHNIQUE: 5 views of the lumbar spine were acquired, including bilateral oblique views. COMPARISON: None. FINDINGS: Bones: 5 nonrib-bearing vertebrae are present. There is normal bony alignment. There is convex right thoracolumbar spine scoliosis. No vertebral body compression fractures. No suspicious bony lesions. Severe multilevel degenerative disc disease. Moderate multilevel facet arthropathy. Soft tissues: Overlying bowel gas pattern is normal. Multiple radiodensities which may likely likely related to bowel material. Multiple pelvic surgical clips. Oblique images: No pars defects. IMPRESSION: Multilevel degenerative disc disease. Multilevel facet arthropathy. No fracture. No acute osseous lesion. If symptoms and/or clinical suspicion for pathology persists, evaluation with MRI should be considered for further assessment. Dictated by: Lupe Phillips MD, PhD on 09/06/2023 at 9:43 Approved by: Lupe Phillips MD, PhD on 09/06/2023 at 9:44
--- NOTE | 2023-09-06 08:45 | DI.RAD.S_ITS ---
PROCEDURE: XR CERVICAL SPINE 4V OR 5V INDICATIONS: NECK PAIN TECHNIQUE: 5 views of the cervical spine acquired. COMPARISON: None. FINDINGS: Bones: No fractures or dislocations to the T1 level. Trace, approximately 2 millimeters of C4-C5 degenerative anterolisthesis. Moderate C 5-C6 and C6-C7 degenerative disc disease. Mild C3-C4 and C4-C5 degenerative disc disease. Mild facet hypertrophy throughout the cervical spine. Moderate bilateral C4-C5, and C5-C6 uncovertebral hypertrophy. Mild bilateral C3-C4 uncovertebral hypertrophy. Oblique images demonstrate moderate bilateral C3-C4, C4-C5 and C5-C6 neural foraminal narrowing. Soft tissues: No prevertebral soft tissue swelling. IMPRESSION: Multilevel degenerative disc disease. Multilevel facet and uncovertebral arthropathy. No fracture. No acute osseous lesion. If symptoms and/or clinical suspicion for pathology persists, evaluation with MRI should be considered for further assessment. Dictated by: Lupe Phillips MD, PhD on 09/06/2023 at 9:40 Approved by: Lupe Phillips MD, PhD on 09/06/2023 at 9:42
== END ==
PROVIDERS: PCP Family Medicine; Referring Provider Anesthesiology; Visit Provider Anesthesiology
DX: M51.16 Intervertebral disc disorders with radiculopathy, lumbar region (principal); M47.26 Other spondylosis with radiculopathy, lumbar region; M47.812 Spondylosis without myelopathy or radiculopathy, cervical region; M50.31 Other cervical disc degeneration, high cervical region; M48.02 Spinal stenosis, cervical region; M54.50 Low back pain, unspecified; M41.9 Scoliosis, unspecified
CPT/HCPCS: 72050; 72110

== ENCOUNTER → 2023-10-26 11:52 | Outpatient (CLI) | payer OTHER, SELFPAY ==
[2023-10-26 13:11] LABS: Add Manual Diff / Slide Review NO; Basophils Absolute Auto 0 /uL (0-100); Basophils Percent Auto 0.9 % (0-2); Eosinophils Absolute Auto 100 /uL (0-450); Eosinophils Percent Auto 1.6 % (2-4); Hematocrit 36.5 % (41-53); Lymphocytes Absolute Auto 800 /uL (1100-4500); Lymphocytes Percent Auto 19.9 % (25-40); Mean Corpuscular Hemoglobin 27.9 PG (26-34); Mean Corpuscular Volume 84.6 fL (80-100); Monocytes Absolute Auto 600 /uL (0-900); Monocytes Percent Auto 14.8 % (3-14); Neutrophils Absolute Auto 2700 /uL (1500-7000); Neutrophils Percent Auto 62.8 % (50-75); Platelet Count 309 X10^3/uL (150-400); Red Blood Cell Count 4.31 X10^6/uL (4.5-5.9); Red Cell Distribution Width 16.7 % (11.6-14.8); White Blood Cell Count 4.2 X10^3/uL (4.5-11.0)
[2023-10-26 13:23] LABS: Hemoglobin A1C% w Est Avg Glu 5.5 % (4.0-6.0)
[2023-10-26 13:36] LABS: BUN Creatinine Ratio 18.4 (6-22); Blood Urea Nitrogen 16 mg/dL (9-20); Calcium 9.3 mg/dL (8.4-10.2); Carbon Dioxide 23 mmol/L (22-32); Chloride 105 mmol/L (98-107); Estimated Glomerular Filt Rate > 60 mL/min (>60); Glucose 98 mg/dL (80-110); HEMOLYSIS < 15 (0-50); Potassium 4.3 mmol/L (3.4-5.1); Sodium 138 mmol/L (137-145)
== END ==
PROVIDERS: PCP Family Medicine; Referring Provider Orthopaedic Surgery Orthopaedic Surgery of the Spine; Visit Provider Orthopaedic Surgery Orthopaedic Surgery of the Spine
DX: M54.00 Panniculitis affecting regions of neck and back, site unspecified (principal); R73.9 Hyperglycemia, unspecified; Z01.812 Encounter for preprocedural laboratory examination
CPT/HCPCS: 36415; 80048; 83036; 85025

== ENCOUNTER → 2023-11-21 11:26 | Outpatient (CLI) | payer OTHER, SELFPAY ==
[2023-11-21 13:26] LABS: Prostate Specific Antigen < 0.064 ng/mL (0.10-4.00)
[2023-11-21 13:39] LABS: Vitamin B12 396 pg/mL (239-931)
== END ==
LOC: LAB 11:27
PROVIDERS: PCP Family Medicine; Referring Provider Physician Assistant Medical; Visit Provider Physician Assistant Medical
DX: Z08 Encounter for follow-up examination after completed treatment for malignant neoplasm (principal); Z85.46 Personal history of malignant neoplasm of prostate; Z85.51 Personal history of malignant neoplasm of bladder; Z90.6 Acquired absence of other parts of urinary tract; Z90.79 Acquired absence of other genital organ(s)
CPT/HCPCS: 36415; 82607; 84153

== ENCOUNTER → 2024-01-05 11:25 | Outpatient (CLI) | payer OTHER, SELFPAY ==
--- NOTE | 2024-01-05 | DI.CT.S_ITS ---
PROCEDURE: CT LUMBAR SPINE WO CON INDICATIONS: Spinal stenosis, lumbar region with neurogenic claudication TECHNIQUE: Noncontrast 0.8 mm thick sections acquired from the T12 level to the sacrum. Sagittal and coronal reformats were constructed. For radiation dose reduction, the following was used: automated exposure control. COMPARISON: [facility], CR, XR LUMBAR SPINE MIN 4V, 09/06/2023, 8:45. [facility], MR, MR LUMBAR SPINE WO CON, 08/05/2023, 9:17. FINDINGS: Image quality: Excellent. Bones: No acute vertebral body compression fractures. No suspicious lytic or blastic bony lesions. No pars defects. Moderate dextroconvex thoracolumbar scoliosis is seen. T12-L1: Moderate loss of disc height is seen. Vacuum disc phenomenon is seen at this level. Endplate irregularity and sclerosis can be seen. Moderate generalized disc bulge is seen. There is at least moderate left-sided and moderate right-sided neural foraminal narrowing. Moderate central canal narrowing is seen. L1-L2: Moderate to severe loss of disc height is seen. There is a degree of vertebral body fusion seen. Moderate disc bulge is seen, which is eccentric to the left. Bridging endplate osteophytes can be seen on the left, as on series 5, image 17. Mild facet joint hypertrophy is seen. There is moderate to severe left-sided and at least moderate right-sided neural foraminal narrowing. Mild central canal narrowing is seen. L2-L3: At least moderate loss of disc height is seen. Endplate irregularity and sclerosis can be seen. Vacuum disc phenomenon is seen at this level. Moderate generalized disc bulge is seen. Moderate to prominent facet hypertrophy can be seen at this level. There is moderate to severe bilateral neural foraminal narrowing, right worse than left. Moderate to severe central canal narrowing is seen at this level. L3-L4: Moderate to severe loss of disc height is seen on the right. Endplate irregularity and sclerosis can be seen. Vacuum disc phenomenon is seen at this level. Moderate generalized disc bulge is seen. There is a central/right disc osteophyte protrusion, as on series 3, image 50. There is at least moderate facet hypertrophy seen, right worse than left. There is moderate to severe bilateral neural foraminal narrowing, left worse than right. Moderate to severe central canal narrowing is seen. L4-L5: At least moderate loss of disc height is seen. Vacuum disc phenomenon is seen at this level. Endplate irregularity and sclerosis can be seen. Moderate generalized disc bulge is seen. At least moderate facet hypertrophy is seen. There is moderate to severe bilateral neural foraminal narrowing. Moderate central canal narrowing is seen. L5-S1: The disc height is seen. Moderate generalized disc bulge is seen. Moderate facet joint hypertrophy is seen. There is moderate to severe left-sided and at least moderate right-sided neural foraminal narrowing. Moderate central canal narrowing is seen. Soft tissues: No retroperitoneal masses or hematomas. Visualized aorta is normal in caliber. Atherosclerotic calcification is noted. There is a simple cyst seen along the posterior aspect of the left kidney inferiorly. IMPRESSION: CT dated collected for robotic surgery. Multiple levels of significant lumbar spine degenerative change can be seen. Moderate dextroconvex thoracolumbar scoliosis. Dictated by: Kameron Dior M.D. on 01/05/2024 at 14:01 Approved by: Kameron Dior M.D. on 01/05/2024 at 14:06
== END ==
PROVIDERS: PCP Family Medicine; Referring Provider Orthopaedic Surgery Orthopaedic Surgery of the Spine; Visit Provider Orthopaedic Surgery Orthopaedic Surgery of the Spine
DX: M48.062 Spinal stenosis, lumbar region with neurogenic claudication (principal); M48.07 Spinal stenosis, lumbosacral region; M47.816 Spondylosis without myelopathy or radiculopathy, lumbar region; M47.817 Spondylosis without myelopathy or radiculopathy, lumbosacral region; M41.9 Scoliosis, unspecified
CPT/HCPCS: 72131

== ENCOUNTER 2024-01-09 06:09 | Inpatient (IN) | payer OTHER, SELFPAY ==
[2024-01-05 13:42] VITALS: BMI 25.6
[2024-01-09] VITALS (13 sets, daily range): BP systolic 91–141; BP diastolic 42–76; PULSE 74–97; RESP 10–18; TEMP 36.1–37.2; O2SAT 89–99; BMI 25.1
[2024-01-09] MEDS: LACTATED RINGERS 1,000 ML 42 ML IV ×2 (07:07→10:02)
[2024-01-09] MEDS: ACETAMINOPHEN 325 MG TABLET 975 MG PO (07:07)
--- NOTE | 2024-01-09 07:38 | PM.PREOP ---
Pre-operative Note Interval Note History & Physical reviewed/Exam performed by Physician: Yes Changes to H&P: No
[2024-01-09] MEDS: CEFAZOLIN 2 GM/100 ML PREMIX 100 ML IV ×3 (08:08→21:06)
[2024-01-09] MEDS: BUPIVACAINE 0.25% W/ EPI (PF) 10 ML VIAL 30 ML INJ (08:16)
--- NOTE | 2024-01-09 08:22 | SUR.OPER ---
Prone on spine table, head in foam head support, padded chest and pelvic supports, gel pad at knees, lower legs supported by pillows; nipples, genitalia and toes free of pressure, arms secured on foam padded arm boards at <90 degrees abduction. Tape over blanket at thigh secured to table.
--- NOTE | 2024-01-09 12:14 | DI.RAD.S_ITS ---
PROCEDURE: XR LUMBAR SPINE 2-3V INDICATIONS: L2-3,L3-4 TLIF ROBOT TECHNIQUE: Fluoroscopic guidance utilized for a posterior and interbody surgical fusion of the lower lumbar spine COMPARISON: None. FINDINGS: Fluoroscopic images submitted for a posterior and interbody surgical fusion of the lower lumbar spine. Please see operative note for further discussion. IMPRESSION: Fluoroscopic guidance. Dictated by: Ant Rodrigez M.D. on 01/09/2024 at 12:49 Approved by: Ant Rodrigez M.D. on 01/09/2024 at 12:50
[2024-01-09] MEDS: BUPIVACAINE LIPOSOME 266 MG/20 ML VIAL INJ (12:16)
--- NOTE | 2024-01-09 12:39 | P.OP_ITS ---
Operative Date/Time/Diagnoses Date of procedure: 01/09/24 Time of procedure: 07:40 Pre-op diagnosis: 1. L1-2, L2-3, L3-4 spinal stenosis with neurogenic claudication 2. Lumbar scoliosis Post-op diagnosis: same Procedure & Clinicians Procedure: 1. L2-3, L3-4 Postero-lateral and posterior interbody fusion 2. L2-3, L3-4 interbody cage placement. 3. L2-3, L3-4 decompressive laminectomy with bilateral facetecomies 4. L2-3, L3-4 Posterior segmental instrumentation 5. [place] of bone marrow from iliac crest 6. Utilization of microsurgical technique and operating microscope 7. Utilization of robotic assisted navigation Same procedure as scheduled: Yes Indications: Patient has been having chronic back pain and worsening lumbar radiculopathy and symptoms of neurogenic claudication. He was found to have severe spinal stenosis at L1-2 L2-3 L3-4 level with scoliosis correlating with patient's symptoms. Patient failed multiple conservative management with worsening pain weakness and numbness in his lower extremity. Patient has been having difficulty performing activity of daily living. After discussing risks benefits of treatment options, patient elected proceed with surgery. Surgeon: Jennifer Stoner Science Professor: Randee Barbosa Click Yes if Unassisted: No Anesthesia Type: General Operative Notes Closure Type: primary Specimen(s): none sent Prosthetic devices, grafts, tissues, transplants, or devices: Globus CREO MIS screws, Rise cages Applied: catheter Estimated Blood Loss (mL): 300 Blood products transfused: none Procedure in detail: Patient was seen in the preoperative area. Risks and benefits of the surgery was discussed with the patient. Informed consent was obtained from the patient and placed in the chart. Surgical site was marked. Patient was taken to the operative room. General anesthesia was administered. Prophylactic antibiotic was given to the patient less than 30 min before the incision was made. Patient was placed into a prone position on the [place] table. Patient's back was then prepped and draped in the sterile fashion. Time-out was performed at this time. After patient was prepped and draped, patient's PSIS was palpated and marked bilaterally. Small 1 cm incision was made over the PSIS for placement of the reference probes. Two trocar was placed into the PSIS 1 on each side. The reference probe was attached to the trocar of the reference apparatus. At this time the C-arm imaging was used to confirm AP and lateral of L2, L3-L4 vertebrae and merged the C-arm imaging using the Jiongji App robotic navigation system with the CT of the lumbar spine. After successful merging was completed and confirmed, skin marker was used to edgar out the skin incision using the Jiongji App robotic arm. Bilateral incision was made at this time. Pre templated trajectory was used and guided using the Jiongji App robotic navigation system for bilateral L2 L3, L4 pedicle screw placement. This was done by using the robotic arm to guide the high-speed bur to make a cortical entry point. Next a drill was placed also using the robotic arm and guided using the navigation system drilling partially through bilateral L2, L3, L4 pedicles. Next L2, L3, L4 pedicle screws it was pre templated and measured was placed onto the power hi low truck driver and inserted into the pedicles bilaterally. After all 6 screws were placed C-arm imaging was taken of both AP and lateral to confirm the placement. Excellent placement of the screws were confirmed and a matched precisely with the pre planned screw placement using the navigation system. MARs retractor was inserted using Usoundivation guidence. Globus MARS retractors was placed inside the incision and docked onto the L2, L3 lamina. Using microsurgical technique and operating microscope, a L3, L4 laminectomy and L2-3, L3-4 facetectomy was performed using a Kerrison rongeur. Patient was found have severe lateral recess and neural foramen stenosis which was fully decompressed after the laminectomy facetectomy. The laminectomy and facetectomy was performed in order to decompress patient's cauda equina as well as the nerve roots exiting at the L2-3, L3-4 level. More than 75% of the facets were removed during the process of decompression rendering L2-3, L3-4 level grossly unstable and required a fusion procedure at the same time. The disc space at L2-3, L3-4 was identified, and a total diskectomy was performed at L2-3, L3-4 level. The endplates were decorticated using a rasp and shaver. The total diskectomy and decortication was performed at L2-3, L3-4 level in order to to accomplish a L2- 3, L3-4 fusion. The local bone from the laminectomy and facetectomy was saved for local bone grafting. After the total diskectomy and decortication was completed, Viacel bone graft material was combined with local bone that was harvested earlier. At this time, a separate skin is incision was made over the iliac crest. A Jamshidi needle was inserted into the iliac crest through a separate skin incision. 5 cc of bone marrow aspiration was obtained through the separate skin incision using a Jamshidi needle from the iliac crest. The bone marrow aspiration was combined with local bone and the Viacel bone grafting material. The bone grafting material was placed into the L2-3, L3-4 interbody space along with expandable cages. One cage each was inserted into the L2-3 L3-4 interbody space along with bone graft material. The cage was expanded to its maximum height using the torque limiting screwdriver. The disc preparation as well as the cage insertion were also performed under navigation guidance. After the cage was placed, AP and lateral C-arm imaging was taken to confirm placement of the cage and excellent position was confirmed. The MARS retractor was then redirected towards the L1-2 level. Using micr osurgical technique the operative microscope a L1-2 hemilaminectomy was performed using a Kerrison rongeur micro curettes. The epidural space was further decompressed by undercutting the facet joint laterally to further decompress the lateral recess. Globus MARS retractor was inserted and docked onto the L2-3, L3-4 posterolateral gutter on the right side. Using the power drill, posterior-lateral decortication was performed at L2-3, L3-4 level until bleeding cortical bone was identified. The remaining bone grafting material was placed into the L2-3, L3-4 posterior lateral gutter he order to accomplish posterolateral fusion at the L2- 3, L3-4 level. At this time the tulips were attached to the L2, L3-L4 pedicle screw shanks. After measuring the length of the rods, they were inserted into the tulips of the pedicle screws and locked in place using locking caps and torque limiting screwdriver bilaterally. Total 6 caps and 2 titanium rods was used in order to complete the posterior instrumentation construct. After all the hardware was placed, and confirmed with AP and lateral C-arm imaging, the wound was then irrigated with sterile normal saline and packed with Ray-Jazz gauze for 3 min to accomplish hemostasis. After the gauze was removed the deep fascia was closed with #1 Vicryl suture. The subcutaneous layer was closed with 2-0 Vicryl. The skin was closed with skin madelin. Patient tolerated the procedure well. There were no complications. The Operation could not have been safely performed without compromising the technical result or length of the procedure, without the assistance of a skilled surgical services tech. The surgical services tech was medically necessary for proper positioning, retraction and manipulation of instruments, proper exposure, surgical preparation, and manipulation of tissue. Neuro monitoring system was used to monitor patient's neurologic status throughout entire procedure. There was no disturbance of the neural monitoring signals throughout the case. Complications: none Post-operative Condition: stable Disposition: PACU Plan for aftercare: Admit to inpatient hospital
[2024-01-09] MEDS: HYDROMORPHONE 1 MG INJ IV (13:01)
[2024-01-09] MEDS: LACTATED RINGERS 1,000 ML 125 ML IV (15:07)
[2024-01-09] MEDS: OXYCODONE IR 10 MG TABLET PO ×3 (15:09→21:06)
--- NOTE | 2024-01-09 15:45 | OT.IPNOTE ---
Per P.T., pt is not yet ready for therapies. BP 111/51 in supine and looks fatigued and pale. Pt states he would like to wait for tomorrow.
--- NOTE | 2024-01-09 15:45 | PT-IP ANOTE ---
PT order received. PT checks on pt who appears uncomfortable in bed with HOB increased and lower bed flat. He is very white in color and BP is 111/51. Pt requesting more dry blankets and PT strips wet blankets, gets heated blankets, lowers HOB and bends foot of bed to promote better spinal positioning post-op. Pt would like to initiate evaluation next date. He has some confusion about his . PT provides reassurance and speaks with nsg. pt left with call mccray on lap.
[2024-01-09] MEDS: ACETAMINOPHEN 325 MG TABLET 650 MG PO (18:19)
[2024-01-09] MEDS: DOCUSATE 100 MG CAPSULE PO (21:06)
[2024-01-09] MEDS: GABAPENTIN 300 MG CAPSULE PO (21:06)
[2024-01-09] MEDS: SENNOSIDES 8.6 MG TABLET 17.2 MG PO (21:06)
[2024-01-09] MEDS: HYDROMORPHONE 0.5 MG INJ IV (22:12)
[2024-01-10] MEDS: ACETAMINOPHEN 325 MG TABLET 650 MG PO ×4 (00:07→18:51)
[2024-01-10] MEDS: OXYCODONE IR 10 MG TABLET PO ×6 (00:07→21:31)
[2024-01-10] MEDS: HYDROMORPHONE 0.5 MG INJ IV (01:12)
[2024-01-10] MEDS: CEFAZOLIN 2 GM/100 ML PREMIX 100 ML IV (03:04)
[2024-01-10] MEDS: TRAMADOL 50 MG TABLET 25 MG PO (04:04)
[2024-01-10] MEDS: PANTOPRAZOLE DR 20 MG TABLET PO (06:20)
[2024-01-10 06:28] LABS: Hematocrit 30.2 % (41-53); Hemoglobin 10.2 g/dL (13.5-17.5)
[2024-01-10 08:00] VITALS: BP 140/70; PULSE 90; RESP 15; TEMP 36.8; O2SAT 96
[2024-01-10] MEDS: ATORVASTATIN 20 MG TABLET 40 MG PO (08:10)
[2024-01-10 08:11] VITALS: BP 140/70
[2024-01-10] MEDS: lisinopriL 20 MG TABLET PO (08:11)
[2024-01-10] MEDS: LORATADINE 10 MG TABLET PO (08:11)
[2024-01-10] MEDS: GABAPENTIN 300 MG CAPSULE PO ×2 (08:11→21:30)
[2024-01-10] MEDS: FERROUS SULFATE 325 MG TABLET PO (08:11)
[2024-01-10] MEDS: MULTIVITAMIN 1 TABLET 1 TAB PO (08:11)
[2024-01-10] MEDS: DOCUSATE 100 MG CAPSULE PO ×2 (08:11→21:30)
[2024-01-10] MEDS: CHOLECALCIFEROL (VITAMIN D3) 1,000 UNIT TABLET 2000 UNIT PO (08:11)
[2024-01-10] MEDS: PRAMIPEXOLE 0.25 MG TABLET 0.5 MG PO (08:12)
[2024-01-10] MEDS: SERTRALINE 50 MG TABLET PO (08:12)
[2024-01-10] MEDS: VIT C/E/ZN/COPPR/LUTEIN/ZEAXAN CAPSULE 1 CAP PO (08:12)
--- NOTE | 2024-01-10 09:46 | OT.IP.EVAL ---
Current Diagnoses Other secondary scoliosis, site unspecified (01/09/24) Spinal stenosis, lumbar region with neurogenic claudication (01/09/24) Surgery Performed Operation Date: 01/09/24 07:45 Actual Procedures p L2-3, L3-4 TLIF with posterior instrumentation L1-2 left hemilaminectomy-Robot - Jennifer Stoner MD Past Medical History (Last Updated 01/05/24 @ 14:40 by Shawna Kaufman, REINIER) Acne (1958) Anemia (2010) Aortic valve stenosis Bladder cancer (2010) Carotid artery stenosis Cervical spinal stenosis Cervical spondylosis Chicken pox (1952) Chronic back pain (1969) Eczema (1983) GERD (gastroesophageal reflux disease) Hayfever (2006) Hyperlipidemia Hypertension Lumbar spine pain (1978) Lumbar spondylosis Migraines (1957) Mumps (1953) Neck pain Normal cardiac ejection fraction (07/20/23) PAD (peripheral artery disease) Positive PPD (1953) Prostate cancer (2010) RLS (restless legs syndrome) (2011) Spinal stenosis of lumbar region Urinary incontinence (2010) Wrist fracture (1968) Surgical History (Last Updated 01/09/24 @ 07:11 by Karson Black RN) Anesthesia Bladder replaced Bladder replaced by other means Cataract extraction status History of colonoscopy (12/05/09) S/P TAVR (transcatheter aortic valve replacement) Status post appendectomy (1965) Status post laminectomy (1980) Status post radical cystoprostatectomy (02/08/11) Occupational Therapy Inpatient Evaluation/Re-Eval M1 PT/OT-IP Prior Functional Status Start: 01/09/24 14:47 Freq: NEEDED Status: Active Protocol: Document 01/10/24 09:46 [facility] (Rec: 01/10/24 10:00 [facility] [id number]) Medical Review Prior Functional Status Communication Independent Mobility and Gait Pt states has been using a FWW and has had 3 falls recently due to numbness in his legsL>R . Activities of Daily Living and IADL's Pt states having more difficulty with ADl and IADl needs due to pain. Social History Household Members spouse Living Arrangements House Number of Floors (Floors) One Floor Number of Stairs To Enter/Railing? 2 stairs to enter - no railing =, but can hold onto side of the house. Pt states has two steps from garage and multiple steady items to hold to per pt. Home Environment Standard Height Toilet,Walk in Shower Home Equipment Front Wheel Walker,Straight Cane,Raised Toilet Seat w/ Armrests,Shower Seat without Backrest,Hand Held Shower,Long Handled Sponge,Health Information Managers,Grab Bars In Shower Additional Social History Comment Pt lives with his who is able to assist. M2 OT-IP Current Condition Start: 01/10/24 09:46 Freq: Status: Active Protocol: Document 01/10/24 09:46 [facility] (Rec: 01/10/24 10:00 [facility] [id number]) Occupational Therapy Current Condition Current Condition Evaluation Date 01/10/24 Treatment Diagnosis S/P L1-2 hemilaminectomy, L2-4 TLIF Diagnosis Onset Date 01/09/24 Post Operative Precautions Lumbar Precautions Log Roll,No Twisting,Limit Bending,Lifting Restriction of 10 lbs,Gait Belt above Incisional Area M3 OT- IP Subjective and Pain Start: 01/10/24 09:46 Freq: Status: Active Protocol: Document 01/10/24 09:46 [facility] (Rec: 01/10/24 10:00 [facility] [id number]) OT- Subjective Occupational Therapy Visit Type Type Initial Evaluation Visit Start Time 09:00 Visit Stop Time 09:46 Occupational Therapy Visit Comments Patient Comments Pt agreed to get up. Patient/Caregiver Goals TO go home. OT Pain Assessment Pain When Pain Assessed At Rest Pain Present Pain Present Pain Reported Location low back Intensity 3 Scale Used Numeric (0 - 10) M4 OT- IP ADL's Start: 01/10/24 09:46 Freq: Status: Active Protocol: Document 01/10/24 09:46 [facility] (Rec: 01/10/24 10:00 [facility] [id number]) OT [id number] Comments OT Self-Feeding Comments NOt at meal time, no issues noted. OT ADL-Grooming Comments OT Grooming Comments Pt refused. OT ADL-Oral Care Comments Oral Care Comments Pt declined. OT ADL-Dressing General Eval Lower Body Dressing Ability Maximum Assistance Areas Needing Assistance Socks,Shoes Comments OT Dressing Comments Suggested pt get slip on shoes that fit well if his not able to assist him. Pt go over LB dressing equipment next session. OT ADL-Toileting Comments OT Toileting Comments Alford in place. Spoke of using a urinal at night. OT ADL-Bathing Comments OT Bathing Comments Went over care for showering needs. M5 OT- IP IADL's Start: 01/10/24 09:46 Freq: Status: Active Protocol: Document 01/10/24 09:46 [facility] (Rec: 01/10/24 10:00 [facility] [id number]) OT-Instrumental Activities of Daily Living Home Safety Awareness Awareness of Need for Assistance at Home Good Awareness Home Safety Comments At this time pt will need more assist at home. Pt needing reminders to incorporate his back precautions. Meal Preparation Meal Preparation Caregiver Provides Assist Desktop Publishing Operator Desktop Publishing Operator Caregiver Provides Assist M6 OT- IP Functional Cognition Start: 01/10/24 09:46 Freq: Status: Active Protocol: Document 01/10/24 09:46 [facility] (Rec: 01/10/24 10:00 [facility] [id number]) Cognitive Factors Limiting Selfcare Function Cognitive Ability Level of Alertness Alert Patient Orientation Name,Age,Birthday,Month,Date, Year,Day of Week,Place, Situation Attention Span Ability Capable of Focused Attention, Capable of Sustained Attention Safety Awareness Decreased Recall of Precautions,Decreased Ability to Apply Precautions Cognitive Comments Cognitive Assessment Comments Pt needing vc for safety awareness for FWW, and to incorporate his back precautions for ADL and mobility needs. OT- Vision and Hearing OT- Hearing Assessment OT- Hearing Assessment WFL OT- Vision Assessment Visual Acuity Glasses For Reading Visual Attentiveness WFL Occular Pursuits WFL M7 OT- IP Mobility and Balance Start: 01/10/24 09:46 Freq: Status: Active Protocol: Document 01/10/24 09:46 [facility] (Rec: 01/10/24 10:00 [facility] [id number]) OT- Bed Mobility Assessment Supine to Sit Supine to Sit Assist Minimal Assistance Sit to Supine Sit to Supine Assist Minimal Assistance Scooting Scooting to Edge of Bed Contact Guard Assistance OT-Transfer Assessment Sit to and From Stand Sit to and from Stand Minimal Assistance,Moderate Assistance Transfers Transfer Ability Moderate Assistance Technique Transfer Destination Bed,Chair Transfer Technique Stand Step Pivot Devices Transfer Assistive Devices Gait Belt,Front Wheeled Walker Comments Mobility Comments DEANA for log rolling and cues for hand positioning needs. DEANA to MODA to stand and vc for push up from the bed. MODA with FWW to transfer and take a few steps in the room. Pt buckling with his LLE and at this time just suggested transfers only for nursing. OT- Balance Assessment Sitting Balance and Reactions Static Sitting Balance Ability Good Dynamic Sitting Balance Ability Fair Standing Balance and Reactions Static Standing Balance Ability Poor Dynamic Standing Balance Ability Poor M8 OT- IP Objective Assessments Start: 01/10/24 09:46 Freq: Status: Active Protocol: Document 01/10/24 09:46 [facility] (Rec: 01/10/24 10:00 [facility] [id number]) OT Gross Range of Motion Upper Extremity Range of Motion Assessment Within Functional Limits OT Strength Upper Extremity Strength Assessment Within Functional Limits M9 OT- IP Assessment and Plan Start: 01/10/24 09:46 Freq: Status: Active Protocol: Document 01/10/24 09:46 [facility] (Rec: 01/10/24 10:00 [facility] [id number]) OT Summary Assessment and Plan Potential Rehabilitation Potential Good Analytic Complexity at Evaluation Low Summary OT Impairments Pain,Strength,Balance, Sensation,Functional Mobility, Grooming,Dressing,Toileting, Bathing,Toilet Transfers, Shower Transfers,Activity Tolerance Progress Towards Goals Slow Progress due to Pain,Slow Progress due to Medical Issues,Slow Progress due to Activity Tolerance Assessment Summary Pt low complexity and main barriers are steps, weakness, and buckling with his LLE when up on his feet. At this time with pt's current level would be a high fall risk at home and best to have short skilled rehab prior to going home. Pt insistent on going home. Pending progress home versus skilled. Goals Grooming Goal Independent Dressing Goal Minimal Assistance Toileting Goal Independent Bathing Goal Minimal Assistance Toilet Transfer Goal Standby Assistance Shower Transfer Goal Contact Guard Assistance Days to Meet Goals 10 Frequency of Treatment Other frequency 5x Treatment Plan OT Treatment Plan ADL Training,Functional Mobility,Patient/Family Education,Discharge Planning Other Treatment Recommendations and Next practice LB dressing equipment Treatment Focus Discharge Recommendations OT Discharge Recommendations SNF Rehab Other Discharge Recommendations Hopefully pt progresses and to go home with home health and assist. Home Equipment Needs LB dressing equipment Transportation Needs at Discharge Wheelchair/Cabulance
--- NOTE | 2024-01-10 10:30 | PT.IIE ---
Current Diagnoses Other secondary scoliosis, site unspecified (01/09/24) Spinal stenosis, lumbar region with neurogenic claudication (01/09/24) Surgery Performed Operation Date: 01/09/24 07:45 Actual Procedures p L2-3, L3-4 TLIF with posterior instrumentation L1-2 left hemilaminectomy-Robot - Jennifer Stoner MD Surgical History (Last Updated 01/09/24 @ 07:11 by Karson Black, REINIER) Anesthesia Bladder replaced Bladder replaced by other means Cataract extraction status History of colonoscopy (12/05/09) S/P TAVR (transcatheter aortic valve replacement) Status post appendectomy (1965) Status post laminectomy (1980) Status post radical cystoprostatectomy (02/08/11) Medical History (Last Updated 01/05/24 @ 14:40 by Shawna Kaufman RN) Acne (1958) Anemia (2010) Aortic valve stenosis Bladder cancer (2010) Carotid artery stenosis Cervical spinal stenosis Cervical spondylosis Chicken pox (1952) Chronic back pain (1969) Eczema (1983) GERD (gastroesophageal reflux disease) Hayfever (2006) Hyperlipidemia Hypertension Lumbar spine pain (1978) Lumbar spondylosis Migraines (1957) Mumps (1953) Neck pain Normal cardiac ejection fraction (07/20/23) PAD (peripheral artery disease) Positive PPD (1953) Prostate cancer (2010) RLS (restless legs syndrome) (2011) Spinal stenosis of lumbar region Urinary incontinence (2010) Wrist fracture (1968) Physical Therapy Inpatient Evaluation/Re-Eval M1 PT/OT-IP Prior Functional Status Start: 01/09/24 14:47 Freq: NEEDED Status: Active Protocol: Document 01/10/24 10:30 AB (Rec: 01/10/24 12:23 AB [id number]) Medical Review Prior Functional Status Medical History Reviewed Yes Communication able to make needs known Mobility and Gait pt stated that he was modified independent with all mobilities and ambulation using a FWW for long distance mobility and a SPC for short distance mobility/for tight spaces. pt with h/o 3 falls for the year Social History Household Members spouse Living Arrangements House Number of Floors (Floors) One Floor Number of Stairs To Enter/Railing? 2 steps to enter without rails but has wood siding that he can hold on to on R side ascending Home Environment High Toilet,Walk in Shower Home Equipment Front Wheel Walker,Straight Cane,Raised Toilet Seat w/ Armrests,Shower Seat with Backrest,Long Handled Sponge, Filleter,Grab Bars Near Toilet, Grab Bars In Shower M2 PT-IP Current Condition Start: 01/09/24 14:47 Freq: NEEDED Status: Active Protocol: Document 01/10/24 10:30 AB (Rec: 01/10/24 12:23 AB [id number]) Physical Therapy Current Condition Current Condition Evaluation Date 01/10/24 Treatment Diagnosis s/p L2-3, L3-4 TLIF; difficulty in walking Onset Date 01/09/24 M3 PT-IP Subjective Start: 01/09/24 14:47 Freq: NEEDED Status: Active Protocol: Document 01/10/24 10:30 AB (Rec: 01/10/24 12:23 AB [id number]) Subjective Physical Therapy Visit Type Type Initial Evaluation Visit Start Time 10:30 Visit Stop Time 11:05 Number of CLEANER CARPET AND UPHOLSTERY Visits 0 Physical Therapy Visit Comments Patient Comments agreeable to do PT Therapy Pain Assessment Pain When Pain Assessed At Rest Pain Present Pain Present Pain Reported Location low back Intensity 5 Scale Used Numeric (0 - 10) Pain Management Techniques Apply Cold,Distraction, Modification of Treatment,Re- positioning,Timing of Activity with Medications M4 PT-IP Mobility and Gait Start: 01/09/24 14:47 Freq: NEEDED Status: Active Protocol: Document 01/10/24 10:30 AB (Rec: 01/10/24 12:23 AB [id number]) PT-Bed Mobility Assessment Rolling Type of Rolling Log Rolling Level of Assist Maximal Assistance Supine to Sit Supine to Sit Maximum Assistance Sit to Supine Sit to Supine Maximum Assistance PT-Transfer Assessment Sit to and From Stand Sit to and from Stand Maximum Assistance,1 Person Assistance,Use of Upper Extremities Equipment Transfer Assistive Device Gait Belt,Front Wheeled Walker Orthotic/Prosthetic Devices or Brace: No Transfers Transfer Destination Chair Transfer Technique ambulated Transfer Ability Level of Assist Moderate Assistance,Maximum Assistance,1 Person Assistance ,Use of Upper Extremities Comments Mobility Comments pt sitting on the chair and agreeable to do PT. pt recalled 2/3 of his back precautions. revewied back precautions again and log roll bed mobility. pt [facility] max A and max cues. pt with BLE weakness and numbness and has L foot drop. pt stated that this is due to his back problem. pt ambulated in room using FWW mod to max A and max cues. cued for FWW use and to increase LE elevation. pt sat on EOB. completed log roll sit<>supine max A and max cues for techniques. pt completed sit to stand from EOB max A and step transfer to chair max A and cues using fWW. positioned pt on the chair. call light and table placed within reach. Gait Assessment Gait Gait Assistance Required: Moderate Assistance,Maximum Assistance Distance (Feet) 30 Able to Maintain Weight Bearing Status Yes During Gait Assistive Devices Assistive Device Gait Belt,Front Wheeled Walker Orthotic/Prosthetic Devices or Brace: No Gait Deviations General Gait Pattern Ataxic,Decreased Stride Length ,Decreased Feet Clearance,Step -to Gait Factors Limiting Gait Function Factors Limiting Gait Function Decreased Activity Tolerance, Decreased Sensation,Decreased Strength,Difficulty Following Directions,Limited Range of Motion,Pain,Poor Balance,Poor Safety Awareness PT-Balance Assessment Sitting Balance and Reactions Static Sitting Balance Ability Good Dynamic Sitting Balance Ability Fair Standing Balance and Reactions Static Standing Balance Ability Poor Dynamic Standing Balance Ability Poor Device Used FWW M5 PT-IP Objective Assessments Start: 01/09/24 14:47 Freq: NEEDED Status: Active Protocol: Document 01/10/24 10:30 AB (Rec: 01/10/24 12:23 AB [id number]) Orientation Orientation/Cognition Level of Alertness Alert Orientation Name,Place,Situation Language Function Ability No Deficits Noted Safety Awareness Decreased Safety Awareness Memory Description Short Term Impaired,Nursing Home Impaired Gross Range of Motion Lower Extremity ROM Assessment Within Functional Limits Strength Lower Extremity Strength Assessment Left Impaired Hip R : 3+/5 L : 4-/5 Knee R : 4-/5 L : 3+/5 Ankle L: 2/5 Coordination Assessment Gross Coordination Gross Coordination WNL Sensation Assessment Sensation Gross Sensation Right LE Impaired,Left LE Impaired Sensation Description Numbness Comments Sensation Comments chronic LE numbness: L from the knee down to foot; R foot Muscle Tone Muscle Tone WNL Yes M6 PT-IP Treatment Start: 01/09/24 14:47 Freq: NEEDED Status: Active Protocol: Document 01/10/24 10:30 AB (Rec: 01/10/24 12:23 AB [id number]) Physical Therapy Treatment Education Education Provided Precautions,Weight Bearing Status,Safety M7 PT-IP Assessment and Plan Start: 01/09/24 14:47 Freq: NEEDED Status: Active Protocol: Document 01/10/24 10:30 AB (Rec: 01/10/24 12:23 AB [id number]) PT Summary Assessment and Plan Potential Rehabilitation Potential Fair Status of Condition at Evaluation Evolving Summary Impairments Pain,ROM,Strength,Balance, Coordination,Sensation,Tone, Cognition,Bed Mobility, Transfers,Gait,Activity Tolerance Assessment Summary pt is a 78 y/o M s/p L2-3, L3- 4 TLIF POD 1. pt has back precautions. pt requiring mod to max A with mobility using FWW and presents with unsteady gait. d/c plan depending on progress. pt plans to have spouse to assist him at home. will conduct caregiver training when appropriate. pt will require 24/7 assist and at this time may require SNF rehab. will continue to assess. Goals Bed Mobility Goal Minimal Assistance Transfer Goal Minimal Assistance,Front Wheeled Walker Gait Goal Minimal Assistance,Front Wheel Walker Gait Distance 50 Other Goals improve bed mobility, transfers, ambulation using FWW ~ 100 ft SBA up/down 2 steps SPC+ SUPERVISOR VARNISH/R [facility] CGA Days to Meet Goals 10 Frequency of Treatment Frequency Of Treatment Twice a Day Treatment Plan Physical Therapy Treatment Plan Bed Mobility Training,Transfer Training,Gait Training, Therapeutic Exercise,Balance Retraining,Post Op Education, Discharge Planning,Hot or Cold Pack,Neuromuscular Re-ed, Coordination Retraining,Manual Therapy Precautions Lumbar Precautions Log Roll,No Twisting,Limit Bending,Lifting Restriction of 10 lbs,Gait Belt above Incisional Area Recommendations To Nursing Amount of Assist Needed 1 Person Assist Discharge Recommendations PT Discharge Recommendations Home with 24/7 Assist Available,Home Health,SNF Rehab,Home vs SNF Transportation Needs at Discharge Private Vehicle,Wheelchair/ Cabulance
--- NOTE | 2024-01-10 13:25 | PT.IPTN ---
Current Diagnoses Other secondary scoliosis, site unspecified (01/09/24) Spinal stenosis, lumbar region with neurogenic claudication (01/09/24) Surgery Performed Operation Date: 01/09/24 07:45 Actual Procedures p L2-3, L3-4 TLIF with posterior instrumentation L1-2 left hemilaminectomy-Robot - Jennifer Stoner MD Physical Therapy Treatment Note M2 PT-IP Current Condition Start: 01/09/24 14:47 Freq: NEEDED Status: Active Protocol: Document 01/10/24 10:30 AB (Rec: 01/10/24 12:23 AB [id number]) Physical Therapy Current Condition Current Condition Evaluation Date 01/10/24 Treatment Diagnosis s/p L2-3, L3-4 TLIF; difficulty in walking Onset Date 01/09/24 M3 PT-IP Subjective Start: 01/09/24 14:47 Freq: NEEDED Status: Active Protocol: Document 01/10/24 13:25 AB (Rec: 01/10/24 16:49 AB [id number]) Subjective Physical Therapy Visit Type Type Treatment Note Visit Start Time 13:25 Visit Stop Time 14:15 Number of EDGE DYER Visits 0 Physical Therapy Visit Comments Patient Comments agreeable to do PT Therapy Pain Assessment Pain When Pain Assessed At Rest Pain Present Pain Present Pain Reported Location low back Intensity 4 Scale Used Numeric (0 - 10) Pain Management Techniques Distraction,Modification of Treatment,Re-positioning, Timing of Activity with Medications M4 PT-IP Mobility and Gait Start: 01/09/24 14:47 Freq: NEEDED Status: Active Protocol: Document 01/10/24 13:25 AB (Rec: 01/10/24 16:49 AB [id number]) PT-Bed Mobility Assessment Rolling Level of Assist Contact Guard Assistance, Minimal Assistance Supine to Sit Supine to Sit Contact Guard Assistance, Moderate Assistance Sit to Supine Sit to Supine Contact Guard Assistance, Moderate Assistance PT-Transfer Assessment Sit to and From Stand Sit to and from Stand Moderate Assistance,1 Person Assistance,Use of Upper Extremities Equipment Transfer Assistive Device Gait Belt,Front Wheeled Walker Orthotic/Prosthetic Devices or Brace: No Transfers Transfer Destination Bed,Chair Transfer Technique ambulated Transfer Ability Level of Assist Moderate Assistance,1 Person Assistance,Use of Upper Extremities Comments Mobility Comments pt sitting on the chair. spouse in room. caregiver training conducted. educated spouse on how to use safety belt and how to assist pt. spouse was able to put safety belt on pt. PT assisted pt with sit to stand and educated spouse on how to assist and cue pt. pt ambulated in room using FWW mod A and max cues ~ 15 ft and sat back on chair. instructed spouse to assist pt . spouse assisted pt with sit to stand and started to ambulate pt but PT took over after a few steps. pt needing mod A using FWW and max cues. pt sat on EOB. spouse stated that she has hip pain needing replacement and unable to assist pt. pt completed sit<> supine log roll mod A and max cues. educated spouse on how pt should do log roll. pt repeated again and completed CGA but continues to require max A for techniques and safety. pt step transfer back to chair using FWW mod A and cues. informed pt and spouse regarding SNF rehab and pt refuse to go to SNF. spouse stated that she cannot assist pt. informed pt and spouse to talk and has to decide. spouse stated that she will try again to assist pt. spouse put safety belt on pt again and assisted pt with sit to stand and ambulation in room using FWW mod A but midway, spouse stated that she cannot assist pt and PT took over. spouse unable to provide instructions and cues to pt. PT instructed pt and spouse. spouse grunting when assisting pt due to her hip pain. assisted pt back to the chair. positioned pt on the chair. call light and table placed within reach. pt continues to refuse to go to SNF. stated that he thinks he can go home and be able to move by himself. informed pt regarding 2 steps to enter the house and currently is not safe to do stair climbing. outside sales manager in room and talk with pt. Left pt and spouse with nurse case manager. Gait Assessment Gait Gait Assistance Required: Moderate Assistance Distance (Feet) 20 Able to Maintain Weight Bearing Status Yes During Gait Assistive Devices Assistive Device Gait Belt,Front Wheeled Walker Orthotic/Prosthetic Devices or Brace: No Gait Deviations General Gait Pattern Ataxic,Decreased Stride Length ,Decreased Feet Clearance, Narrow Based Gait,Step-to Gait Factors Limiting Gait Function Factors Limiting Gait Function Decreased Activity Tolerance, Decreased Sensation,Decreased Strength,Difficulty Following Directions,Limited Range of Motion,Pain,Poor Balance,Poor Safety Awareness M5 PT-IP Objective Assessments Start: 01/09/24 14:47 Freq: NEEDED Status: Active Protocol: Document 01/10/24 10:30 AB (Rec: 01/10/24 12:23 AB [id number]) Orientation Orientation/Cognition Level of Alertness Alert Orientation Name,Place,Situation Language Function Ability No Deficits Noted Safety Awareness Decreased Safety Awareness Memory Description Short Term Impaired,Debarker Operator Impaired Gross Range of Motion Lower Extremity ROM Assessment Within Functional Limits Strength Lower Extremity Strength Assessment Left Impaired Hip R : 3+/5 L : 4-/5 Knee R : 4-/5 L : 3+/5 Ankle L: 2/5 Coordination Assessment Gross Coordination Gross Coordination WNL Sensation Assessment Sensation Gross Sensation Right LE Impaired,Left LE Impaired Sensation Description Numbness Comments Sensation Comments chronic LE numbness: L from the knee down to foot; R foot Muscle Tone Muscle Tone WNL Yes M6 PT-IP Treatment Start: 01/09/24 14:47 Freq: NEEDED Status: Active Protocol: Document 01/10/24 13:25 AB (Rec: 01/10/24 16:49 AB [id number]) Physical Therapy Treatment Education Education Provided Precautions,Weight Bearing Status,Safety M7 PT-IP Assessment and Plan Start: 01/09/24 14:47 Freq: NEEDED Status: Active Protocol: Document 01/10/24 13:25 AB (Rec: 01/10/24 16:49 AB [id number]) PT Summary Assessment and Plan Potential Rehabilitation Potential Fair Summary Impairments Pain,ROM,Strength,Balance, Coordination,Sensation,Tone, Cognition,Bed Mobility, Transfers,Gait,Activity Tolerance Progress Towards Goals Slow Progress due to Medical Issues,Slow Progress due to Activity Tolerance,Slow Progress - Other Assessment Summary pt requiring mod A with mobility using FWW and continues to require max cues with all tasks. initiated caregiver training but spouse was not able to assist pt much due to her medical condition. spouse unable to provide pt instructions and cues during mobility and pt unable recall on how to move safely with back precautions. pt will need SNF rehab but pt currently refusing to go to SNF. will continue to assess progress. nurse case manager informed regarding d/c recommendation. Goals Bed Mobility Goal Minimal Assistance Transfer Goal Minimal Assistance,Front Wheeled Walker Gait Goal Minimal Assistance,Front Wheel Walker Gait Distance 50 Other Goals improve bed mobility, transfers, ambulation using FWW ~ 100 ft SBA up/down 2 steps SPC+ HYDROGEN CELL TENDER/R wood siding CGA Days to Meet Goals 10 Frequency of Treatment Frequency Of Treatment Twice a Day Treatment Plan Physical Therapy Treatment Plan Bed Mobility Training,Transfer Training,Gait Training, Therapeutic Exercise,Balance Retraining,Post Op Education, Discharge Planning,Hot or Cold Pack,Neuromuscular Re-ed, Coordination Retraining,Manual Therapy Precautions Lumbar Precautions Log Roll,No Twisting,Limit Bending,Lifting Restriction of 10 lbs,Gait Belt above Incisional Area Recommendations To Nursing Amount of Assist Needed 1 Person Assist Discharge Recommendations PT Discharge Recommendations SNF Rehab Transportation Needs at Discharge Wheelchair/Cabulance
--- NOTE | 2024-01-10 14:50 | P.DS_ITS ---
History of Present Illness History of Present Illness Date Patient Seen: 01/10/24 Time Patient Seen: 12:15 Chief complaint: TLIF Discharge Providers Provider Date of admission: 01/09/24 06:09 Primary care physician: Odell Allen MD Consults: 01/09/24 13:34 Consult to Occupational Therapy Evaluate & Treat Comment: Physician Instructions: Evaluate and treat Consult to Physical Therapy Evaluate & Treat Comment: Physician Instructions: Evaluate and Treat Discharge provider: Oz Esteban PA-C Exam Vital Signs (past 8 hours): - 01/10/24 08:00 01/10/24 08:11 Temperature 98.2 F Pulse Rate 90 Respiratory Rate 15 Blood Pressure 140/70 140/70 Pulse Oximetry 96 Oxygen Flow Rate 0 Oxygen Delivery Method Room Air Oxygen Flow Rate 0 Objective Labs 01/10/24 06:05 Labs: Laboratory Results - last 24 hr 01/10/24 06:05 Hgb 10.2 L Hct 30.2 L PFSH Medical History (Updated 01/05/24 @ 14:40 by Shawna Kaufman RN) Normal cardiac ejection fraction (07/20/23) Carotid artery stenosis PAD (peripheral artery disease) GERD (gastroesophageal reflux disease) Cervical spinal stenosis Spinal stenosis of lumbar region Lumbar spondylosis Cervical spondylosis Neck pain Aortic valve stenosis RLS (restless legs syndrome) (2011) Lumbar spine pain (1978) Wrist fracture (1968) Positive PPD (1953) Anemia (2010) Chicken pox (1952) Urinary incontinence (2010) Mumps (1953) Acne (1958) Eczema (1983) Chronic back pain (1969) Migraines (1957) Hayfever (2006) Hyperlipidemia Hypertension Prostate cancer (2010) Bladder cancer (2010) Surgical History (Updated 01/09/24 @ 07:11 by Karson Black RN) Bladder replaced Bladder replaced by other means S/P TAVR (transcatheter aortic valve replacement) Cataract extraction status History of colonoscopy (12/05/09) Anesthesia Status post radical cystoprostatectomy (02/08/11) Status post laminectomy (1980) Status post appendectomy (1965) Family History Brother Age: 73 Overweight Brother Age: 63 Diabetes mellitus Hypertension High cholesterol Father High cholesterol Heart disease Pneumonia [place] (myocardial infarction) Mother Cancer Heart disease Hypertension Stroke Congestive heart failure Son No problems noted. Daughter No problems noted. Sister No problems noted. Social History marital status: household members: spouse Smoking Status: Former smoker alcohol intake: current substance use type: does not use Discharge Plan Discharge Plan Patient Disposition: Home Provider Discharge Comment: DC pending PT Discharge orders & Medications Prescriptions: Continued multivitamin Tablet 1 tab PO DAILY Qty: 0 pramipexole 0.5 mg tablet 0.5 mg PO DAILY Qty: 90 1RF vitamin A-vitamin C-vit E-min Tablet 1 tab PO DAILY gabapentin 300 mg capsule 300 mg PO BID Qty: 60 3RF sertraline [Zoloft] 50 mg tablet 50 mg PO DAILY Qty: 90 1RF cholecalciferol (vitamin D3) [Vitamin D3] 2,000 unit Capsule 2,000 unit PO DAILY tramadol 50 mg tablet 25 mg PO BID PRN (Reason: Pain (Scale Score 4-6)) famotidine 20 mg tablet 20 mg PO DAILY PRN (Reason: GERD) omeprazole 20 mg Tablet,Delayed Release (Dr/Ec) 20 mg PO DAILY atorvastatin 40 mg tablet 40 mg PO DAILY ferrous sulfate [iron] 325 mg (65 mg iron) Tablet 325 mg PO DAILY aspirin [Adult Aspirin Regimen] 81 mg tablet,delayed release (DR/EC) 81 mg PO DAILY lisinopril 20 mg tablet 20 mg PO DAILY loratadine 10 mg tablet 10 mg PO DAILY Follow up/Referrals: Odell Allen MD [Primary Care Provider] - Jennifer Stoner MD [Physician] - 01/26/24 2:00 pm (Follow up w/ Randee Barbosa PA-C, at [facility] in [place].) Diet/Activity/Treatments Diet: Diet as Tolerated Activity: No deep bending or twisting at the waist. No lifting more than 10 pounds. Skin/Wound/Dressing Care Report to your healthcare provider any signs of infection, such as:: chills, fever, night sweats, unusual drainage and unusual redness Dressing: May shower; keep dressing as dry as possible. If dressing becomes wet or dirty, may remove and replace with clean, dry gauze. No bathing or otherwise soaking incisions. Do not apply any creams, lotions, or ointments to incisions. Visit Report/Discharge Packet Stand Alone Forms: Patient Portal/API, Stroke Signs & Symptoms Discharge Data Primary Care Provider: Odell Allen VTE Deep Vein Thrombosis/Pulmonary Embolism Present on Admission: No
[2024-01-10 16:00] VITALS: BP 98/52; PULSE 80; RESP 12; TEMP 36.7; O2SAT 98
--- NOTE | 2024-01-10 16:23 | CM.DANOTE ---
Initial DCP Assessment Note Pt is a 78 yo male, resident of [place], now POD#1 from TLIF PCP: Odell Allen Payer: [facility] Reviewed chart, therapies recommending SNF at this time. Met w/patient and spouse to discuss discharge plan; patient eager to return home, spouse resistant to this. Discussed [facility] SNFs and patient/sp would want [facility] if SNF continues to be recommended tomorrow after AM therapy sessions. Updated PT with above. Plan: Discharge home w/spouse and HH if PT clears vs SNF once secured and [employer] auth obtained, if patient/sp agreeable to this plan. ZULEIKA Ortiz Discharge Planning/Care Management CM Discharge Assessment Start: 01/10/24 16:19 Freq: Status: Active Protocol: Document 01/10/24 16:20 JONI (Rec: 01/10/24 16:23 JONI [id number]) Discharge Planning Assessment Assigned Residential Appraiser ZULEIKA Arzola DPOA/Assigned Designee Name Shi Kim, spouse Contact Information [phone], Advance Directives? Yes Advance Directives on File No History Provided By Patient,Significant Other, Medical Record Prior Living Arrangements House Household Members spouse Type of transporation used prior to Relies on Others admit Independent with ADL's Yes: With walker due to unsteadiness, back pain Is patient alert and oriented? Yes Needs Assistance With Meal Prep,Home Chores / Shopping Barriers to Discharge Yes Comment Home w/ HH vs SNF ([facility]) Transportation Arrangement TBD Referrals Initiated Other Additional Comment Await addtl assessment of needs 01/10 Medicare Choice List Provided Yes SNF/HH Preference [facility] if SNF is needed Has Agency SNF been contacted No Whiteboard Updated in Patient Room with Yes name and ext. # of Residential Appraiser
--- NOTE | 2024-01-10 17:43 | PM.PNPO.1 ---
Subjective Subjective Date Patient Seen: 01/10/24 Time Patient Seen: 12:00 Interval history: Patient found in his bed after working with physical therapy. Says that he is doing well at this time. Pain controlled with oral medications. No new numbness or tingling in lower extremities. Exam Vital Signs (past 8 hours): - 01/10/24 16:00 Temperature 98.1 F Pulse Rate 80 Respiratory Rate 12 Blood Pressure 98/52 L Pulse Oximetry 98 Oxygen Flow Rate 0 Oxygen Delivery Method Room Air Oxygen Flow Rate 0 Narrative Exam Narrative: 08/06 with ELH, PF, DF, knee flexors and extensors bilaterally. Sensation intact to light touch bilateral lower extremities. No increased pain or warmth noted with compression of posterior calf or thigh. Dressing clean dry and intact. Objective Labs 01/10/24 06:05 Labs: Laboratory Results - last 24 hr 01/10/24 06:05 Hgb 10.2 L Hct 30.2 L PFSH Medical History (Updated 01/05/24 @ 14:40 by Shawna Kaufman RN) Normal cardiac ejection fraction (07/20/23) Carotid artery stenosis PAD (peripheral artery disease) GERD (gastroesophageal reflux disease) Cervical spinal stenosis Spinal stenosis of lumbar region Lumbar spondylosis Cervical spondylosis Neck pain Aortic valve stenosis RLS (restless legs syndrome) (2011) Lumbar spine pain (1978) Wrist fracture (1968) Positive PPD (1953) Anemia (2010) Chicken pox (1952) Urinary incontinence (2010) Mumps (1953) Acne (1958) Eczema (1983) Chronic back pain (1969) Migraines (1957) Hayfever (2006) Hyperlipidemia Hypertension Prostate cancer (2010) Bladder cancer (2010) Surgical History (Updated 01/09/24 @ 07:11 by Karson Black RN) Bladder replaced Bladder replaced by other means S/P TAVR (transcatheter aortic valve replacement) Cataract extraction status History of colonoscopy (12/05/09) Anesthesia Status post radical cystoprostatectomy (02/08/11) Status post laminectomy (1980) Status post appendectomy (1965) Family History Brother Age: 73 Overweight Brother Age: 63 Diabetes mellitus Hypertension High cholesterol Father High cholesterol Heart disease Pneumonia [place] (myocardial infarction) Mother Cancer Heart disease Hypertension Stroke Congestive heart failure Son No problems noted. Daughter No problems noted. Sister No problems noted. Social History marital status: household members: spouse Smoking Status: Former smoker alcohol intake: current substance use type: does not use Assessment & Plan Post-op Postoperative Procedures: Procedures Operation Date: 01/09/24 07:45 Actual Procedure Side Surgeon p L2-3, L3-4 TLIF with posterior instrumentation L1-2 left hemilaminectomy-Robot Jennifer Stoner MD Postoperative day: 1 Postoperative status: doing well Postoperative plan: routine post-op care and ambulate Postoperative plan narrative: Patient feels he is able to discharge home. However PT feels patient will be more suited with SNF versus home with home health assistance. Patient will continue to work with physical therapy throughout the day and tomorrow. Patient will continue multimodal pain control. Re-evaluate tomorrow to discuss discharge status. Time Spent With Patient Time with patient: less than 15 minutes Quality VTE Deep Vein Thrombosis/Pulmonary Embolism Present on Admission: No
[2024-01-10 20:50] VITALS: BP 132/61; PULSE 95; RESP 18; TEMP 36.8; O2SAT 100
[2024-01-10] MEDS: SENNOSIDES 8.6 MG TABLET 17.2 MG PO (21:30)
[2024-01-11] MEDS: OXYCODONE IR 10 MG TABLET PO ×5 (01:19→22:28)
[2024-01-11] MEDS: PANTOPRAZOLE DR 20 MG TABLET PO (05:53)
--- NOTE | 2024-01-11 06:52 | P.PN_ITS ---
Subjective Subjective Date Patient Seen: 01/11/24 Time Patient Seen: 06:52 Interval history: Pt lying in bed, awakens easily to voice. C/o severe low back pain today. Still has wagoner catheter in place. Evaluated by PT yesterday; they are recommending SNF. He also spoke w/ case management re disposition. He tells me today he will definitely need SNF d/t his spouse's poor health. Exam Vital Signs (past 8 hours): Oxygen Delivery Method Room Air Oxygen Flow Rate 0 Narrative Exam Narrative: 5/5 hip flexors, quadriceps, hamstrings, PF, DF, EHL on right; 5/5 hip flexors, quadriceps, hamstrings, PF on left, 4/5 DF and EHL on left. Sensation to touch intact throughout BLE, calves soft and compressible. Dressing placed intraoperatively is unable to be fully seen at this time d/t pts inability to roll to his side without significant discomfort. Objective Labs 01/10/24 06:05 [facility] Medical History (Updated 01/05/24 @ 14:40 by Shawna Kaufman RN) Normal cardiac ejection fraction (07/20/23) Carotid artery stenosis PAD (peripheral artery disease) GERD (gastroesophageal reflux disease) Cervical spinal stenosis Spinal stenosis of lumbar region Lumbar spondylosis Cervical spondylosis Neck pain Aortic valve stenosis RLS (restless legs syndrome) (2011) Lumbar spine pain (1978) Wrist fracture (1968) Positive PPD (1953) Anemia (2010) Chicken pox (1952) Urinary incontinence (2010) Mumps (1953) Acne (1958) Eczema (1983) Chronic back pain (1969) Migraines (1957) Hayfever (2006) Hyperlipidemia Hypertension Prostate cancer (2010) Bladder cancer (2010) Surgical History (Updated 01/11/24 @ 06:54 by Randee Barbosa PA-C) Bladder replaced Bladder replaced by other means S/P TAVR (transcatheter aortic valve replacement) Cataract extraction status History of colonoscopy (12/05/09) Anesthesia Status post radical cystoprostatectomy (02/08/11) Status post laminectomy (1980) Status post appendectomy (1965) Family History Brother Age: 73 Overweight Brother Age: 63 Diabetes mellitus Hypertension High cholesterol Father High cholesterol Heart disease Pneumonia [place] (myocardial infarction) Mother Cancer Heart disease Hypertension Stroke Congestive heart failure Son No problems noted. Daughter No problems noted. Sister No problems noted. Social History marital status: household members: spouse Smoking Status: Former smoker alcohol intake: current substance use type: does not use Assessment & Plan Post-op Assessment and plan (1) S/P lumbar fusion: Assessment and Plan narrative: 1) Will add cyclobenzaprine for back pain and d/c tramadol to avoid interaction. Will start w/ 5mg TID; may need to increase to 10mg TID. 2) D/c wagoner. 3) Continue SCDs for mechanical VTE prophylaxis. Pt just had an aortic valve replacement in June and is to be on ASA 81mg daily for life. I will restart this today and discuss w/ Dr Stoner. 4) Plan for d/c to SNF tomorrow pending auth/acceptance, hopefully tomorrow. Postoperative Procedures: Procedures Operation Date: 01/09/24 07:45 Actual Procedure Side Surgeon p L2-3, L3-4 TLIF with posterior instrumentation L1-2 left hemilaminectomy-Robot Jennifer Stoner MD Postoperative day: 2 Quality VTE Deep Vein Thrombosis/Pulmonary Embolism Present on Admission: No
--- NOTE | 2024-01-11 06:54 | PC.NURSE ---
Order to DC wagoner. Pt refused at this time and wants to DC wagoner at 0800.
[2024-01-11] MEDS: PRAMIPEXOLE 0.25 MG TABLET 0.5 MG PO (07:59)
[2024-01-11] MEDS: VIT C/E/ZN/COPPR/LUTEIN/ZEAXAN CAPSULE 1 CAP PO (07:59)
[2024-01-11] MEDS: GABAPENTIN 300 MG CAPSULE PO ×2 (07:59→20:14)
[2024-01-11] MEDS: DOCUSATE 100 MG CAPSULE PO ×2 (08:00→20:14)
[2024-01-11] MEDS: FERROUS SULFATE 325 MG TABLET PO (08:00)
[2024-01-11] MEDS: SERTRALINE 50 MG TABLET PO (08:00)
[2024-01-11] MEDS: MULTIVITAMIN 1 TABLET 1 TAB PO (08:00)
[2024-01-11] MEDS: ACETAMINOPHEN 325 MG TABLET 650 MG PO ×2 (08:00→14:18)
[2024-01-11] MEDS: ATORVASTATIN 20 MG TABLET 40 MG PO (08:00)
[2024-01-11] MEDS: CHOLECALCIFEROL (VITAMIN D3) 1,000 UNIT TABLET 2000 UNIT PO (08:00)
[2024-01-11] MEDS: LORATADINE 10 MG TABLET PO (08:00)
[2024-01-11] MEDS: ASPIRIN EC 81 MG TABLET PO (08:03)
[2024-01-11 08:05] VITALS: BP 139/65; PULSE 89
[2024-01-11] MEDS: lisinopriL 20 MG TABLET PO (08:05)
--- NOTE | 2024-01-11 10:50 | PT.IPTN ---
Current Diagnoses Other secondary scoliosis, site unspecified (01/09/24) Spinal stenosis, lumbar region with neurogenic claudication (01/09/24) Arthrodesis status (01/09/24) Surgery Performed Operation Date: 01/09/24 07:45 Actual Procedures p L2-3, L3-4 TLIF with posterior instrumentation L1-2 left hemilaminectomy-Robot - Jennifer Stoner MD Physical Therapy Treatment Note M2 PT-IP Current Condition Start: 01/09/24 14:47 Freq: NEEDED Status: Active Protocol: Document 01/10/24 10:30 AB (Rec: 01/10/24 12:23 AB [id number]) Physical Therapy Current Condition Current Condition Evaluation Date 01/10/24 Treatment Diagnosis s/p L2-3, L3-4 TLIF; difficulty in walking Onset Date 01/09/24 M3 PT-IP Subjective Start: 01/09/24 14:47 Freq: NEEDED Status: Active Protocol: Document 01/11/24 14:52 AB (Rec: 01/11/24 14:50 AB [id number]) Subjective Physical Therapy Visit Type Type Treatment Note Visit Start Time 10:50 Visit Stop Time 11:15 Number of SUPERINTENDENT QUARRY Visits 0 Physical Therapy Visit Comments Patient Comments agreeable to do PT Therapy Pain Assessment Pain When Pain Assessed At Rest Pain Present Pain Present Pain Reported Location low back Intensity 3 Scale Used Numeric (0 - 10) Pain Management Techniques Distraction,Modification of Treatment,Re-positioning, Timing of Activity with Medications M4 PT-IP Mobility and Gait Start: 01/09/24 14:47 Freq: NEEDED Status: Active Protocol: Document 01/11/24 14:52 AB (Rec: 01/11/24 14:50 AB [id number]) PT-Bed Mobility Assessment Rolling Level of Assist Minimal Assistance Supine to Sit Supine to Sit Minimal Assistance Sit to Supine Sit to Supine Standby Assistance PT-Transfer Assessment Sit to and From Stand Sit to and from Stand Moderate Assistance,1 Person Assistance,Use of Upper Extremities Equipment Transfer Assistive Device Gait Belt,Front Wheeled Walker Orthotic/Prosthetic Devices or Brace: No Comments Mobility Comments pt sitting on the chair. agreed to do PT. completed sit to stand mod A and max cues. pt ambulated in room using FWW ~ 30 ft. initial mod A needed but midway requiring mod to max A and presents more unsteadiness and difficulty lifting LE up. cued to use FWW to be able to lift LE. pt sat on the EOB. completed bed mobility sit to supine SBA. able to recall techniques but required min A for log roll supine to sit and required max cues for techniques. pt completed sit to stand from the EOB mod A and step transfer to chair mod A and max cues using FWW. pt tends to plop back. educated pt regarding sit<>stand techniques. pt completed sit< >stand again requiring mod A cues but with better control with descent on chair. positioned pt on the chair. call light and table placed within reach. Gait Assessment Gait Gait Assistance Required: Moderate Assistance,Maximum Assistance Distance (Feet) 30 Able to Maintain Weight Bearing Status Yes During Gait Assistive Devices Assistive Device Gait Belt,Front Wheeled Walker Orthotic/Prosthetic Devices or Brace: No Gait Deviations General Gait Pattern Ataxic,Decreased Stride Length ,Decreased Feet Clearance,Step -to Gait Factors Limiting Gait Function Factors Limiting Gait Function Decreased Sensation,Decreased Strength,Limited Range of Motion,Pain,Poor Balance,Poor Safety Awareness M5 PT-IP Objective Assessments Start: 01/09/24 14:47 Freq: NEEDED Status: Active Protocol: Document 01/10/24 10:30 AB (Rec: 01/10/24 12:23 AB [id number]) Orientation Orientation/Cognition Level of Alertness Alert Orientation Name,Place,Situation Language Function Ability No Deficits Noted Safety Awareness Decreased Safety Awareness Memory Description Short Term Impaired,Retirement Impaired Gross Range of Motion Lower Extremity ROM Assessment Within Functional Limits Strength Lower Extremity Strength Assessment Left Impaired Hip R : 3+/5 L : 4-/5 Knee R : 4-/5 L : 3+/5 Ankle L: 2/5 Coordination Assessment Gross Coordination Gross Coordination WNL Sensation Assessment Sensation Gross Sensation Right LE Impaired,Left LE Impaired Sensation Description Numbness Comments Sensation Comments chronic LE numbness: L from the knee down to foot; R foot Muscle Tone Muscle Tone WNL Yes M6 PT-IP Treatment Start: 01/09/24 14:47 Freq: NEEDED Status: Active Protocol: Document 01/11/24 14:52 AB (Rec: 01/11/24 14:50 AB [id number]) Physical Therapy Treatment Education Education Provided Precautions,Safety M7 PT-IP Assessment and Plan Start: 01/09/24 14:47 Freq: NEEDED Status: Active Protocol: Document 01/11/24 14:52 AB (Rec: 01/11/24 14:50 AB [id number]) PT Summary Assessment and Plan Potential Rehabilitation Potential Fair Summary Impairments Pain,ROM,Strength,Balance, Coordination,Sensation,Tone, Cognition,Bed Mobility, Transfers,Gait,Activity Tolerance Progress Towards Goals Slow Progress due to Medical Issues,Slow Progress due to Activity Tolerance Assessment Summary pt progressing slowly with mobility and requiring mod to max A for ambulation using fWW . pt was able walked 30 ft today. pt will continue to require 25/10 asssist. pt is agreeable to go to SNF today and stated that spouse will not be able to assist him. pt will require SNF rehab to improve overall strength and mobility. Goals Bed Mobility Goal Minimal Assistance Transfer Goal Minimal Assistance,Front Wheeled Walker Gait Goal Minimal Assistance,Front Wheel Walker Gait Distance 50 Other Goals improve bed mobility, transfers, ambulation using FWW ~ 100 ft SBA up/down 2 steps SPC+ [employer] SUPERVISOR/R [employer] CGA Days to Meet Goals 10 Frequency of Treatment Frequency Of Treatment Twice a Day Treatment Plan Physical Therapy Treatment Plan Bed Mobility Training,Transfer Training,Gait Training, Therapeutic Exercise,Balance Retraining,Post Op Education, Discharge Planning,Hot or Cold Pack,Neuromuscular Re-ed, Coordination Retraining,Manual Therapy Precautions Lumbar Precautions Log Roll,No Twisting,Limit Bending,Lifting Restriction of 10 lbs,Gait Belt above Incisional Area Recommendations To Nursing Amount of Assist Needed 1 Person Assist Discharge Recommendations PT Discharge Recommendations SNF Rehab Transportation Needs at Discharge Wheelchair/Cabulance
--- NOTE | 2024-01-11 10:50 | PT.IPTN ---
Current Diagnoses Other secondary scoliosis, site unspecified (01/09/24) Spinal stenosis, lumbar region with neurogenic claudication (01/09/24) Arthrodesis status (01/09/24) Surgery Performed Operation Date: 01/09/24 07:45 Actual Procedures p L2-3, L3-4 TLIF with posterior instrumentation L1-2 left hemilaminectomy-Robot - Jennifer Stoner MD Physical Therapy Treatment Note M2 PT-IP Current Condition Start: 01/09/24 14:47 Freq: NEEDED Status: Active Protocol: Document 01/10/24 10:30 AB (Rec: 01/10/24 12:23 AB [id number]) Physical Therapy Current Condition Current Condition Evaluation Date 01/10/24 Treatment Diagnosis s/p L2-3, L3-4 TLIF; difficulty in walking Onset Date 01/09/24 M3 PT-IP Subjective Start: 01/09/24 14:47 Freq: NEEDED Status: Active Protocol: Document 01/11/24 14:40 TS (Rec: 01/11/24 14:50 TS [id number]) Subjective Physical Therapy Visit Type Type Treatment Note Visit Start Time 14:16 Visit Stop Time 14:40 Number of [employer] Visits 1 Physical Therapy Visit Comments Patient Comments Pt found resting in the chair, reports wanting to get back to bed, pt is agreeable to PT. Therapy Pain Assessment Location low back Intensity 7 Description Aching,Acute Pain Management Techniques Distraction,Modification of Treatment,Re-positioning, Timing of Activity with Medications M4 PT-IP Mobility and Gait Start: 01/09/24 14:47 Freq: NEEDED Status: Active Protocol: Document 01/11/24 14:40 TS (Rec: 01/11/24 14:50 TS [id number]) PT-Bed Mobility Assessment Rolling Level of Assist Contact Guard Assistance, Minimal Assistance,1 Person Assistance Sit to Supine Sit to Supine Minimal Assistance,1 Person Assistance Scooting Scooting Up and Down in Bed Contact Guard Assistance PT-Transfer Assessment Sit to and From Stand Sit to and from Stand Minimal Assistance,1 Person Assistance Equipment Transfer Assistive Device Gait Belt,Front Wheeled Walker Orthotic/Prosthetic Devices or Brace: No Comments Mobility Comments Pt recalled 3/3 spinal precautions. STS with FWW Zaria , pt requires cues for hands pushing from arms of the chair . He ambulates ~75'CGA with FWW, pt has L drop foot and unsteadiness. Sit to supine into bed Zaria for Le's and cues for sequencing of logroll . Pt was left in bed, all needs met. Gait Assessment Gait Gait Assistance Required: Contact Guard Assist Distance (Feet) 75 Able to Maintain Weight Bearing Status Yes During Gait Assistive Devices Assistive Device Gait Belt,Front Wheeled Walker Gait Deviations General Gait Pattern Ataxic,Decreased Stride Length ,Decreased Feet Clearance, Narrow Based Gait,Step-to Gait Factors Limiting Gait Function Factors Limiting Gait Function Decreased Activity Tolerance, Decreased Sensation,Decreased Strength,Difficulty Following Directions,Limited Range of Motion,Pain,Poor Balance,Poor Safety Awareness PT-Balance Assessment Sitting Balance and Reactions Static Sitting Balance Ability Good Dynamic Sitting Balance Ability Fair Standing Balance and Reactions Static Standing Balance Ability Fair Dynamic Standing Balance Ability Fair Device Used FWW M5 PT-IP Objective Assessments Start: 01/09/24 14:47 Freq: NEEDED Status: Active Protocol: Document 01/10/24 10:30 AB (Rec: 01/10/24 12:23 AB [id number]) Orientation Orientation/Cognition Level of Alertness Alert Orientation Name,Place,Situation Language Function Ability No Deficits Noted Safety Awareness Decreased Safety Awareness Memory Description Short Term Impaired,Snf Impaired Gross Range of Motion Lower Extremity ROM Assessment Within Functional Limits Strength Lower Extremity Strength Assessment Left Impaired Hip R : 3+/5 L : 4-/5 Knee R : 4-/5 L : 3+/5 Ankle L: 2/5 Coordination Assessment Gross Coordination Gross Coordination WNL Sensation Assessment Sensation Gross Sensation Right LE Impaired,Left LE Impaired Sensation Description Numbness Comments Sensation Comments chronic LE numbness: L from the knee down to foot; R foot Muscle Tone Muscle Tone WNL Yes M6 PT-IP Treatment Start: 01/09/24 14:47 Freq: NEEDED Status: Active Protocol: Document 01/11/24 14:40 TS (Rec: 01/11/24 14:50 TS [id number]) Physical Therapy Treatment Education Education Provided Precautions,Weight Bearing Status,Safety M7 PT-IP Assessment and Plan Start: 01/09/24 14:47 Freq: NEEDED Status: Active Protocol: Document 01/11/24 14:40 TS (Rec: 01/11/24 14:50 TS [id number]) PT Summary Assessment and Plan Potential Rehabilitation Potential Fair Summary Impairments Pain,ROM,Strength,Balance, Coordination,Sensation,Tone, Cognition,Bed Mobility, Transfers,Gait,Activity Tolerance Progress Towards Goals Slow Progress due to Medical Issues,Slow Progress due to Activity Tolerance Assessment Summary Adam made some progress with his mobility but remains limited. He progressed his gait to CGA ~75 with FWW. He performs bed mobility with Zaria and some cues. He demonstrates good awareness of his spinal precautions. He does fatigue quickly and has L foot drop with unsteadiness while ambulating. PT recommends SNF rehab at this time. 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/R [facility] CGA Days to Meet Goals 10 Frequency of Treatment Frequency Of Treatment Twice a Day Treatment Plan Physical Therapy Treatment Plan Bed Mobility Training,Transfer Training,Gait Training, Therapeutic Exercise,Balance Retraining,Post Op Education, Discharge Planning,Hot or Cold Pack,Neuromuscular Re-ed, Coordination Retraining,Manual Therapy Precautions Lumbar Precautions Log Roll,No Twisting,Limit Bending,Lifting Restriction of 10 lbs,Gait Belt above Incisional Area Recommendations To Nursing Amount of Assist Needed 1 Person Assist Discharge Recommendations PT Discharge Recommendations SNF Rehab Transportation Needs at Discharge Wheelchair/Cabulance
--- NOTE | 2024-01-11 11:08 | P.PN_ITS ---
Subjective Subjective Interval history: Patient says he is feeling well. He is pain control with oral medications. Still needs assistance to ambulate and urinates in a bedside urinal. While he wishes to be discharged home he believes it be best if he was discharged to SNF due to the fact that his will not be able to assist him in his current condition. Denies nausea vomiting fever or chills. Exam Vital Signs (past 8 hours): - 01/11/24 08:05 Pulse Rate 89 Blood Pressure 139/65 Oxygen Delivery Method Room Air Oxygen Flow Rate 0 Narrative Exam Narrative: Patient found sitting comfortably bedside chair. 5/5 strength in hip flexors, quadriceps, hamstrings, DF, PF, EHL bilaterally. Sensation to light touch intact throughout BLE. Calves soft, compressible, nontender. ?Dressing placed intraoperatively CDI. Resp Effort & Inspection: normal respiratory effort and able to speak in complete sentences Objective Labs 01/10/24 06:05 [facility] Medical History (Updated 01/05/24 @ 14:40 by Shawna Kaufman RN) Normal cardiac ejection fraction (07/20/23) Carotid artery stenosis PAD (peripheral artery disease) GERD (gastroesophageal reflux disease) Cervical spinal stenosis Spinal stenosis of lumbar region Lumbar spondylosis Cervical spondylosis Neck pain Aortic valve stenosis RLS (restless legs syndrome) (2011) Lumbar spine pain (1978) Wrist fracture (1968) Positive PPD (1953) Anemia (2010) Chicken pox (1952) Urinary incontinence (2010) Mumps (1953) Acne (1958) Eczema (1983) Chronic back pain (1969) Migraines (1957) Hayfever (2006) Hyperlipidemia Hypertension Prostate cancer (2010) Bladder cancer (2010) Surgical History (Updated 01/11/24 @ 06:54 by Randee Barbosa PA-C) Bladder replaced Bladder replaced by other means S/P TAVR (transcatheter aortic valve replacement) Cataract extraction status History of colonoscopy (12/05/09) Anesthesia Status post radical cystoprostatectomy (02/08/11) Status post laminectomy (1980) Status post appendectomy (1965) Family History Brother Age: 73 Overweight Brother Age: 63 Diabetes mellitus Hypertension High cholesterol Father High cholesterol Heart disease Pneumonia [place] (myocardial infarction) Mother Cancer Heart disease Hypertension Stroke Congestive heart failure Son No problems noted. Daughter No problems noted. Sister No problems noted. Social History marital status: household members: spouse Smoking Status: Former smoker alcohol intake: current substance use type: does not use Assessment & Plan Post-op Postoperative Procedures: Procedures Operation Date: 01/09/24 07:45 Actual Procedure Side Surgeon p L2-3, L3-4 TLIF with posterior instrumentation L1-2 left hemilaminectomy-Robot Jennifer Stoner MD Postoperative day: 2 Postoperative plan: routine post-op care Postoperative plan narrative: PT feels patient will be more suited with SNF versus home with home health assistance. See him it is currently assisting patient with setting up discharge arrangements. Patient will continue to work with physical therapy throughout the day and tomorrow. Patient will continue multimodal pain control. Re-evaluate tomorrow to discuss discharge status: SNF vs Home with Home Health. Time Spent With Patient Time with patient: less than 15 minutes Quality VTE Deep Vein Thrombosis/Pulmonary Embolism Present on Admission: No
--- NOTE | 2024-01-11 11:13 | OT.IP.TRT ---
Current Diagnoses Other secondary scoliosis, site unspecified (01/09/24) Spinal stenosis, lumbar region with neurogenic claudication (01/09/24) Arthrodesis status (01/09/24) Surgery Performed Operation Date: 01/09/24 07:45 Actual Procedures p L2-3, L3-4 TLIF with posterior instrumentation L1-2 left hemilaminectomy-Robot - Jennfier Stoner MD Occupational Therapy Treatment Note M2 OT-IP Current Condition Start: 01/10/24 09:46 Freq: Status: Active Protocol: Document 01/10/24 09:46 [facility] (Rec: 01/10/24 10:00 [facility] [id number]) Occupational Therapy Current Condition Current Condition Evaluation Date 01/10/24 Treatment Diagnosis S/P L1-2 hemilaminectomy, L2-4 TLIF Diagnosis Onset Date 01/09/24 Post Operative Precautions Lumbar Precautions Log Roll,No Twisting,Limit Bending,Lifting Restriction of 10 lbs,Gait Belt above Incisional Area M3 OT- IP Subjective and Pain Start: 01/10/24 09:46 Freq: Status: Active Protocol: Document 01/11/24 12:04 [facility] (Rec: 01/11/24 12:17 [facility] [id number]) OT- Subjective Occupational Therapy Visit Type Type Treatment Note Visit Start Time 11:35 Visit Stop Time 12:03 Occupational Therapy Visit Comments Patient Comments Pt agreed to get up and use the urinal. Patient/Caregiver Goals Pt now open to going to skilled rehab. OT Pain Assessment Pain When Pain Assessed At Rest Pain Present Pain Present Pain Reported Location low back Intensity 5 Scale Used Numeric (0 - 10) Document 01/10/24 09:46 [facility] (Rec: 01/10/24 10:00 [facility] [id number]) OT-Instrumental Activities of Daily Living Home Safety Awareness Awareness of Need for Assistance at Home Good Awareness Home Safety Comments At this time pt will need mor assist at home. Pt needing reminders to incorporate his back precautions. Meal Preparation Meal Preparation Caregiver Provides Assist Knitting Inspector Knitting Inspector Caregiver Provides Assist M6 OT- IP Functional Cognition Start: 01/10/24 09:46 Freq: Status: Active Protocol: Document 01/11/24 12:04 [facility] (Rec: 01/11/24 12:17 [facility] [id number]) Cognitive Factors Limiting Selfcare Function Cognitive Ability Memory Description Short Term Impaired Safety Awareness Decreased Recall of Precautions,Decreased Ability to Apply Precautions Cognitive Comments Cognitive Assessment Comments Pt still needing reminders for his back precautions, safety and steps for transitions when coming from seated to standing position to the FWW. M7 OT- IP Mobility and Balance Start: 01/10/24 09:46 Freq: Status: Active Protocol: Document 01/11/24 12:04 [facility] (Rec: 01/11/24 12:17 [facility] [id number]) OT-Transfer Assessment Sit to and From Stand Sit to and from Stand Minimal Assistance,Moderate Assistance Technique Transfer Destination Chair Transfer Technique Stand Step Pivot Devices Transfer Assistive Devices Gait Belt,Front Wheeled Walker Comments Mobility Comments DEANA to stand from the recliner and will need MODA for lower surfaces at this time. Able to work on techniques of scooting forwards by leaning side to side to unweight his bottom. IN addition use of his hands on the recliner to help move his bottom forwards. Pt able to recall and follow what the PT had recommended him so that his heels stay on the ground when coming to stand. Pt having to use the urinal and needing MODA for balance while standing while using his hands for urinal needs. OT- Balance Assessment Sitting Balance and Reactions Static Sitting Balance Ability Good Dynamic Sitting Balance Ability Fair Standing Balance and Reactions Static Standing Balance Ability Fair Dynamic Standing Balance Ability Poor M8 OT- IP Objective Assessments Start: 01/10/24 09:46 Freq: Status: Active Protocol: Document 01/10/24 09:46 [facility] (Rec: 01/10/24 10:00 [facility] [id number]) OT Gross Range of Motion Upper Extremity Range of Motion Assessment Within Functional Limits OT Strength Upper Extremity Strength Assessment Within Functional Limits M9 OT- IP Assessment and Plan Start: 01/10/24 09:46 Freq: Status: Active Protocol: Document 01/11/24 12:04 [facility] (Rec: 01/11/24 12:17 [facility] [id number]) OT Summary Assessment and Plan Potential Rehabilitation Potential Good Analytic Complexity at Evaluation Low Summary OT Impairments Pain,Strength,Balance, Sensation,Functional Mobility, Grooming,Dressing,Toileting, Bathing,Toilet Transfers, Shower Transfers,Activity Tolerance Progress Towards Goals Progressing Toward Goals Assessment Summary Pt doing better but still unsteady on his feet and currently needing at least MODA for some ADL needs. In addition pt will greatly benefit from continued training for sequencing to come to stand and to follow his back precautions. Pt states at home has to get up to use the bathroom every 2-3 hours and if having to go home would be a high fall risk. Best for pt to go to skilled rehab prior to going home. Goals Grooming Goal Independent Dressing Goal Minimal Assistance Toileting Goal Independent Bathing Goal Minimal Assistance Toilet Transfer Goal Independent Shower Transfer Goal Standby Assistance Days to Meet Goals 15 Frequency of Treatment Other frequency 5x Treatment Plan OT Treatment Plan ADL Training,Functional Mobility,Patient/Family Education,Discharge Planning Discharge Recommendations OT Discharge Recommendations SNF Rehab Home Equipment Needs LB dressing equipment Transportation Needs at Discharge Wheelchair/Cabulance
--- NOTE | 2024-01-11 12:00 | CM.DPNOTE ---
Addendum entered by ZULEIKA Power 01/11/24 16:05: Per [facility] CM Laura, auth for SNF [id number]. per [facility], likely able to accept tomorrow. PREPARER MAKING DEPARTMENT updated pt and spouse in room, appreciative of update. PREPARER MAKING DEPARTMENT updated ortho PA on dcp and signature needed for PASRR, PASRR in chart. P: hopeful for dc to [facility] tomorrow, transport/official acceptance pending. CM team will continue to follow closely SL Original Note: DCP Note PREPARER MAKING DEPARTMENT reviewed EMR. Per chart review, PT/OT rec SNF. PREPARER MAKING DEPARTMENT met with pt in room, pt preference for SNF are 1) [facility] and 2) next closest option. Denied other SNF questions at this time. Only briefly met with pt in order for him to resume OT services. PREPARER MAKING DEPARTMENT lvm with [facility] asking them to review. PREPARER MAKING DEPARTMENT spoke with Laura at [facility]. Agreed to review. PREPARER MAKING DEPARTMENT [employer] updated PT/OT notes for her to review. Auth pending. PREPARER MAKING DEPARTMENT completed PASRR, ortho team signature needed. P: DC to SNF, auth/acceptance pending. CM team will continue to follow closely ZULEIKA Power
--- NOTE | 2024-01-11 14:16 | PT.IPTN ---
Current Diagnoses Other secondary scoliosis, site unspecified (01/09/24) Spinal stenosis, lumbar region with neurogenic claudication (01/09/24) Arthrodesis status (01/09/24) Surgery Performed Operation Date: 01/09/24 07:45 Actual Procedures p L2-3, L3-4 TLIF with posterior instrumentation L1-2 left hemilaminectomy-Robot - Jennifer Stoner MD Physical Therapy Treatment Note M2 PT-IP Current Condition Start: 01/09/24 14:47 Freq: NEEDED Status: Active Protocol: Document 01/10/24 10:30 AB (Rec: 01/10/24 12:23 AB [id number]) Physical Therapy Current Condition Current Condition Evaluation Date 01/10/24 Treatment Diagnosis s/p L2-3, L3-4 TLIF; difficulty in walking Onset Date 01/09/24 M3 PT-IP Subjective Start: 01/09/24 14:47 Freq: NEEDED Status: Active Protocol: Document 01/11/24 14:40 TS (Rec: 01/11/24 14:50 TS [id number]) Subjective Physical Therapy Visit Type Type Treatment Note Visit Start Time 14:16 Visit Stop Time 14:40 Number of DIE KEEPER Visits 1 Physical Therapy Visit Comments Patient Comments Pt found resting in the chair, reports wanting to get back to bed, pt is agreeable to PT. Therapy Pain Assessment Location low back Intensity 7 Description Aching,Acute Pain Management Techniques Distraction,Modification of Treatment,Re-positioning, Timing of Activity with Medications M4 PT-IP Mobility and Gait Start: 01/09/24 14:47 Freq: NEEDED Status: Active Protocol: Document 01/11/24 14:40 TS (Rec: 01/11/24 14:50 TS [id number]) PT-Bed Mobility Assessment Rolling Level of Assist Contact Guard Assistance, Minimal Assistance,1 Person Assistance Sit to Supine Sit to Supine Minimal Assistance,1 Person Assistance Scooting Scooting Up and Down in Bed Contact Guard Assistance PT-Transfer Assessment Sit to and From Stand Sit to and from Stand Minimal Assistance,1 Person Assistance Equipment Transfer Assistive Device Gait Belt,Front Wheeled Walker Orthotic/Prosthetic Devices or Brace: No Comments Mobility Comments Pt recalled 3/3 spinal precautions. STS with FWW Zaria , pt requires cues for hands pushing from arms of the chair . He ambulates ~75'CGA with FWW, pt has L drop foot and unsteadiness. Sit to supine into bed Zaria for Le's and cues for sequencing of logroll . Pt was left in bed, all needs met. Gait Assessment Gait Gait Assistance Required: Contact Guard Assist Distance (Feet) 75 Able to Maintain Weight Bearing Status Yes During Gait Assistive Devices Assistive Device Gait Belt,Front Wheeled Walker Gait Deviations General Gait Pattern Ataxic,Decreased Stride Length ,Decreased Feet Clearance, Narrow Based Gait,Step-to Gait Factors Limiting Gait Function Factors Limiting Gait Function Decreased Activity Tolerance, Decreased Sensation,Decreased Strength,Difficulty Following Directions,Limited Range of Motion,Pain,Poor Balance,Poor Safety Awareness PT-Balance Assessment Sitting Balance and Reactions Static Sitting Balance Ability Good Dynamic Sitting Balance Ability Fair Standing Balance and Reactions Static Standing Balance Ability Fair Dynamic Standing Balance Ability Fair Device Used FWW M5 PT-IP Objective Assessments Start: 01/09/24 14:47 Freq: NEEDED Status: Active Protocol: Document 01/10/24 10:30 AB (Rec: 01/10/24 12:23 AB [id number]) Orientation Orientation/Cognition Level of Alertness Alert Orientation Name,Place,Situation Language Function Ability No Deficits Noted Safety Awareness Decreased Safety Awareness Memory Description Short Term Impaired,Senior Care Impaired Gross Range of Motion Lower Extremity ROM Assessment Within Functional Limits Strength Lower Extremity Strength Assessment Left Impaired Hip R : 3+/5 L : 4-/5 Knee R : 4-/5 L : 3+/5 Ankle L: 2/5 Coordination Assessment Gross Coordination Gross Coordination WNL Sensation Assessment Sensation Gross Sensation Right LE Impaired,Left LE Impaired Sensation Description Numbness Comments Sensation Comments chronic LE numbness: L from the knee down to foot; R foot Muscle Tone Muscle Tone WNL Yes M6 PT-IP Treatment Start: 01/09/24 14:47 Freq: NEEDED Status: Active Protocol: Document 01/11/24 14:40 TS (Rec: 01/11/24 14:50 TS [id number]) Physical Therapy Treatment Education Education Provided Precautions,Weight Bearing Status,Safety M7 PT-IP Assessment and Plan Start: 01/09/24 14:47 Freq: NEEDED Status: Active Protocol: Document 01/11/24 14:40 TS (Rec: 01/11/24 14:50 TS [id number]) PT Summary Assessment and Plan Potential Rehabilitation Potential Fair Summary Impairments Pain,ROM,Strength,Balance, Coordination,Sensation,Tone, Cognition,Bed Mobility, Transfers,Gait,Activity Tolerance Progress Towards Goals Slow Progress due to Medical Issues,Slow Progress due to Activity Tolerance Assessment Summary Adam made some progress with his mobility but remains limited. He progressed his gait to CGA ~75 with FWW. He performs bed mobility with Zaria and some cues. He demonstrates good awareness of his spinal precautions. He does fatigue quickly and has L foot drop with unsteadiness while ambulating. PT recommends SNF rehab at this time. Goals Bed Mobility Goal Minimal Assistance Transfer Goal Minimal Assistance,Front Wheeled Walker Gait Goal Minimal Assistance,Front Wheel Walker Gait Distance 50 Other Goals improve bed mobility, transfers, ambulation using FWW ~ 100 ft SBA up/down 2 steps SPC+ [place]WICH HAND/R [facility] CGA Days to Meet Goals 10 Frequency of Treatment Frequency Of Treatment Twice a Day Treatment Plan Physical Therapy Treatment Plan Bed Mobility Training,Transfer Training,Gait Training, Therapeutic Exercise,Balance Retraining,Post Op Education, Discharge Planning,Hot or Cold Pack,Neuromuscular Re-ed, Coordination Retraining,Manual Therapy Precautions Lumbar Precautions Log Roll,No Twisting,Limit Bending,Lifting Restriction of 10 lbs,Gait Belt above Incisional Area Recommendations To Nursing Amount of Assist Needed 1 Person Assist Discharge Recommendations PT Discharge Recommendations SNF Rehab Transportation Needs at Discharge Wheelchair/Cabulance
[2024-01-11] MEDS: MAGNESIUM HYDROXIDE 30 ML UDC PO (17:11)
[2024-01-11] MEDS: CYCLOBENZAPRINE 10 MG TABLET 5 MG PO (17:11)
[2024-01-11 20:00] VITALS: BP 118/55; PULSE 74; RESP 17; TEMP 36.7; O2SAT 93
[2024-01-11] MEDS: SENNOSIDES 8.6 MG TABLET 17.2 MG PO (20:14)
[2024-01-11] MEDS: SODIUM CHLORIDE 0.9% FLUSH 10 ML IV (22:25)
[2024-01-12] MEDS: OXYCODONE IR 10 MG TABLET PO ×3 (03:03→14:00)
[2024-01-12] MEDS: CYCLOBENZAPRINE 10 MG TABLET 5 MG PO ×2 (04:04→12:10)
[2024-01-12] MEDS: PANTOPRAZOLE DR 20 MG TABLET PO (06:20)
[2024-01-12 08:00] VITALS: BP 114/55; PULSE 93; RESP 16; TEMP 36.4; O2SAT 94
--- NOTE | 2024-01-12 08:45 | PT.IPTN ---
Current Diagnoses Other secondary scoliosis, site unspecified (01/09/24) Spinal stenosis, lumbar region with neurogenic claudication (01/09/24) Arthrodesis status (01/09/24) Surgery Performed Operation Date: 01/09/24 07:45 Actual Procedures p L2-3, L3-4 TLIF with posterior instrumentation L1-2 left hemilaminectomy-Robot - Jennifer Stoner MD Physical Therapy Treatment Note M2 PT-IP Current Condition Start: 01/09/24 14:47 Freq: NEEDED Status: Active Protocol: Document 01/10/24 10:30 AB (Rec: 01/10/24 12:23 AB [id number]) Physical Therapy Current Condition Current Condition Evaluation Date 01/10/24 Treatment Diagnosis s/p L2-3, L3-4 TLIF; difficulty in walking Onset Date 01/09/24 M3 PT-IP Subjective Start: 01/09/24 14:47 Freq: NEEDED Status: Active Protocol: Document 01/12/24 09:03 TS (Rec: 01/12/24 09:09 TS [id number]) Subjective Physical Therapy Visit Type Type Treatment Note Visit Start Time 08:45 Visit Stop Time 09:00 Number of ARMORER TECHNICIAN Visits 2 Physical Therapy Visit Comments Patient Comments Pt found resting in bed, he is agreeable to PT. Therapy Pain Assessment Pain When Pain Assessed At Rest Pain Present Pain Present Pain Reported M4 PT-IP Mobility and Gait Start: 01/09/24 14:47 Freq: NEEDED Status: Active Protocol: Document 01/12/24 09:03 TS (Rec: 01/12/24 09:09 TS [id number]) PT-Bed Mobility Assessment Rolling Level of Assist Contact Guard Assistance, Minimal Assistance,1 Person Assistance Supine to Sit Supine to Sit Contact Guard Assistance Scooting Scooting to Edge of Bed Contact Guard Assistance PT-Transfer Assessment Sit to and From Stand Sit to and from Stand Minimal Assistance,1 Person Assistance Equipment Transfer Assistive Device Gait Belt,Front Wheeled Walker Orthotic/Prosthetic Devices or Brace: No Comments Mobility Comments Pt recalled 3/3 spinal precautions. Logroll to L side CGA/Zaria. Supine to sit CGA with BUE support and handrail assist. STS with FWW Zaria for posterior lean. He ambulates ~ 40' in the room with more difficulty this morning, most likley due ot not having shoes on. Pt was left back in the chair, all needs met. Gait Assessment Gait Gait Assistance Required: Contact Guard Assist Distance (Feet) 40 Able to Maintain Weight Bearing Status Yes During Gait Assistive Devices Assistive Device Gait Belt,Front Wheeled Walker Orthotic/Prosthetic Devices or Brace: No Gait Deviations General Gait Pattern Ataxic,Decreased Stride Length ,Decreased Feet Clearance, Narrow Based Gait,Step-to Gait Factors Limiting Gait Function Factors Limiting Gait Function Decreased Activity Tolerance, Decreased Sensation,Decreased Strength,Difficulty Following Directions,Limited Range of Motion,Pain,Poor Balance,Poor Safety Awareness PT-Balance Assessment Sitting Balance and Reactions Static Sitting Balance Ability Good Dynamic Sitting Balance Ability Fair Standing Balance and Reactions Static Standing Balance Ability Fair Dynamic Standing Balance Ability Fair Device Used FWW M5 PT-IP Objective Assessments Start: 01/09/24 14:47 Freq: NEEDED Status: Active Protocol: Document 01/10/24 10:30 AB (Rec: 01/10/24 12:23 AB [id number]) Orientation Orientation/Cognition Level of Alertness Alert Orientation Name,Place,Situation Language Function Ability No Deficits Noted Safety Awareness Decreased Safety Awareness Memory Description Short Term Impaired,Cylinder Devalver Impaired Gross Range of Motion Lower Extremity ROM Assessment Within Functional Limits Strength Lower Extremity Strength Assessment Left Impaired Hip R : 3+/5 L : 4-/5 Knee R : 4-/5 L : 3+/5 Ankle L: 2/5 Coordination Assessment Gross Coordination Gross Coordination WNL Sensation Assessment Sensation Gross Sensation Right LE Impaired,Left LE Impaired Sensation Description Numbness Comments Sensation Comments chronic LE numbness: L from the knee down to foot; R foot Muscle Tone Muscle Tone WNL Yes M6 PT-IP Treatment Start: 01/09/24 14:47 Freq: NEEDED Status: Active Protocol: Document 01/12/24 09:03 TS (Rec: 01/12/24 09:09 TS [id number]) Physical Therapy Treatment Education Education Provided Precautions,Weight Bearing Status,Safety M7 PT-IP Assessment and Plan Start: 01/09/24 14:47 Freq: NEEDED Status: Active Protocol: Document 01/12/24 09:03 TS (Rec: 01/12/24 09:09 TS [id number]) PT Summary Assessment and Plan Potential Rehabilitation Potential Fair Summary Impairments Pain,ROM,Strength,Balance, Coordination,Sensation,Tone, Cognition,Bed Mobility, Transfers,Gait,Activity Tolerance Progress Towards Goals Slow Progress due to Medical Issues,Slow Progress due to Activity Tolerance Assessment Summary Adam continues to make slow progress with his mobility. He performs bed mobility CGA/ Zaria with good carryover of sequencing. He ambulates withmore diffiuclty this morning, perhaps not having his shoes on. He recalls 3/3 spinal precautions and demonstrates good awareness during mobility. PT is recommending SNF to progress functional mobility and gait. Goals Bed Mobility Goal Minimal Assistance Transfer Goal Minimal Assistance,Front Wheeled Walker Gait Goal Minimal Assistance,Front Wheel Walker Gait Distance 50 Other Goals improve bed mobility, transfers, ambulation using FWW ~ 100 ft SBA up/down 2 steps SPC+ [employer] CREW MEMBER/R [facility] CGA Days to Meet Goals 10 Frequency of Treatment Frequency Of Treatment Twice a Day Treatment Plan Physical Therapy Treatment Plan Bed Mobility Training,Transfer Training,Gait Training, Therapeutic Exercise,Balance Retraining,Post Op Education, Discharge Planning,Hot or Cold Pack,Neuromuscular Re-ed, Coordination Retraining,Manual Therapy Precautions Lumbar Precautions Log Roll,No Twisting,Limit Bending,Lifting Restriction of 10 lbs,Gait Belt above Incisional Area Recommendations To Nursing Amount of Assist Needed 1 Person Assist Discharge Recommendations PT Discharge Recommendations SNF Rehab Transportation Needs at Discharge Wheelchair/Cabulance
[2024-01-12 09:57] VITALS: BP 108/60; PULSE 94
[2024-01-12] MEDS: DOCUSATE 100 MG CAPSULE PO (09:57)
[2024-01-12] MEDS: FERROUS SULFATE 325 MG TABLET PO (09:57)
[2024-01-12] MEDS: MULTIVITAMIN 1 TABLET 1 TAB PO (09:57)
[2024-01-12] MEDS: VIT C/E/ZN/COPPR/LUTEIN/ZEAXAN CAPSULE 1 CAP PO (09:57)
[2024-01-12] MEDS: ATORVASTATIN 20 MG TABLET 40 MG PO (09:57)
[2024-01-12] MEDS: LORATADINE 10 MG TABLET PO (09:57)
[2024-01-12] MEDS: ASPIRIN EC 81 MG TABLET PO (09:57)
[2024-01-12] MEDS: SERTRALINE 50 MG TABLET PO (09:57)
[2024-01-12] MEDS: GABAPENTIN 300 MG CAPSULE PO (09:57)
[2024-01-12] MEDS: CHOLECALCIFEROL (VITAMIN D3) 1,000 UNIT TABLET 2000 UNIT PO (09:57)
[2024-01-12] MEDS: lisinopriL 20 MG TABLET PO (09:57)
[2024-01-12] MEDS: PRAMIPEXOLE 0.25 MG TABLET 0.5 MG PO (09:57)
[2024-01-12] MEDS: ACETAMINOPHEN 325 MG TABLET 650 MG PO (09:58)
[2024-01-12] MEDS: SODIUM CHLORIDE 0.9% FLUSH 10 ML IV (10:00)
--- NOTE | 2024-01-12 10:12 | P.DS_ITS ---
History of Present Illness History of Present Illness Date Patient Seen: 01/12/24 Time Patient Seen: 10:12 Chief complaint: Back pain Narrative: See progress note Discharge Providers Provider Date of admission: 01/09/24 06:09 Discharge Date: 01/12/24 Primary care physician: Odell Allen MD Consults: 01/09/24 13:34 Consult to Occupational Therapy Evaluate & Treat Comment: Physician Instructions: Evaluate and treat Consult to Physical Therapy Evaluate & Treat Comment: Physician Instructions: Evaluate and Treat 01/11/24 06:51 Consult to Discharge Planning Routine Comment: Pt wants SNF d/t spouse's poor health Discharge provider: BALBIR ChavezC Summary Hospital Course Discharge Diagnosis: 1. L1-2, L2-3, L3-4 spinal stenosis with neurogenic claudication 2. Lumbar scoliosis Hospital Course: 1. L2-3, L3-4 Postero-lateral and posterior interbody fusion 2. L2-3, L3-4 interbody cage placement. 3. L2-3, L3-4 decompressive laminectomy with bilateral facetecomies 4. L2-3, L3-4 Posterior segmental instrumentation 5. [place] of bone marrow from iliac crest 6. Utilization of microsurgical technique and operating microscope 7. Utilization of robotic assisted navigation 8. right L1-2 hemilaminectomy Patient has been having chronic back pain and worsening lumbar radiculopathy and symptoms of neurogenic claudication. He was found to have severe spinal stenosis at L1-2 L2-3 L3-4 level with scoliosis correlating with patient's symptoms. Patient failed multiple conservative management with worsening pain weakness and numbness in his lower extremity. Patient has been having difficulty performing activity of daily living. After discussing risks benefits of treatment options, patient elected proceed with surgery. Surgeon: Jennifer Stoner Chief Analytics Officer: Randee Barbosa Click Yes if Unassisted: No Anesthesia Type: General Operative Notes Closure Type: primary Specimen(s): none sent Prosthetic devices, grafts, tissues, transplants, or devices: Globus CREO MIS screws, Rise cages Applied: catheter Estimated Blood Loss (mL): 300 Blood products transfused: none Patient admitted to the hospital for the above-mentioned procedure. Patient consented to the same. Patient underwent lumbar fusion. Patient back in his room recovering and is in stable condition. Patient has been slow to progress due to pain. Patient also need sniff placement secondary to spouse is poor health. Physical therapy is also recommending intermediate facility placement. Patient will be discharge to intermediate facility today. Exam Vital Signs (past 8 hours): - 01/12/24 08:00 01/12/24 09:57 Temperature 97.5 F L Pulse Rate 93 H 94 H Respiratory Rate 16 Blood Pressure 114/55 L 108/60 Pulse Oximetry 94 Oxygen Flow Rate 0 Oxygen Delivery Method Room Air Oxygen Flow Rate 0 Narrative Exam Narrative: See progress note Objective Labs 01/10/24 06:05 [facility] Medical History Normal cardiac ejection fraction (07/20/23) Carotid artery stenosis PAD (peripheral artery disease) GERD (gastroesophageal reflux disease) Cervical spinal stenosis Spinal stenosis of lumbar region Lumbar spondylosis Cervical spondylosis Neck pain Aortic valve stenosis RLS (restless legs syndrome) (2011) Lumbar spine pain (1978) Wrist fracture (1968) Positive PPD (1953) Anemia (2010) Chicken pox (1952) Urinary incontinence (2010) Mumps (1953) Acne (1958) Eczema (1983) Chronic back pain (1969) Migraines (1957) Hayfever (2006) Hyperlipidemia Hypertension Prostate cancer (2010) Bladder cancer (2010) Surgical History Bladder replaced Bladder replaced by other means S/P TAVR (transcatheter aortic valve replacement) Cataract extraction status History of colonoscopy (12/05/09) Anesthesia Status post radical cystoprostatectomy (02/08/11) Status post laminectomy (1980) Status post appendectomy (1965) Family History Brother Age: 73 Overweight Brother Age: 63 Diabetes mellitus Hypertension High cholesterol Father High cholesterol Heart disease Pneumonia [place] (myocardial infarction) Mother Cancer Heart disease Hypertension Stroke Congestive heart failure Son No problems noted. Daughter No problems noted. Sister No problems noted. Social History marital status: household members: spouse Smoking Status: Former smoker alcohol intake: current substance use type: does not use Discharge Assessment & Plan Assessment and Plan Assessment: Stable Plan of Treatment: Multimodal pain management Keep dressing clean and dry Mobilize with physical therapy, limit bending, twisting, lifting Follow up outpatient orthopedic clinic in 2 weeks Discharge to intermediate facility today Discharge Plan Discharge Plan Patient Disposition: Home Transfer to: [facility] Discharge orders & Medications Prescriptions: New acetaminophen 325 mg Tablet 650 mg PO Q6H PRN (Reason: Fever/Mild Pain (1-3)) Qty: 60 0RF cyclobenzaprine 10 mg Tablet 5 mg PO Q8HR PRN (Reason: muscle spasm/back pain) Qty: 20 0RF docusate sodium 100 mg Capsule 100 mg PO BID Qty: 20 0RF tramadol 50 mg tablet 50 mg PO Q6H PRN (Reason: pain) Qty: 60 0RF Continued multivitamin Tablet 1 tab PO DAILY Qty: 0 pramipexole 0.5 mg tablet 0.5 mg PO DAILY Qty: 90 1RF vitamin A-vitamin C-vit E-min Tablet 1 tab PO DAILY gabapentin 300 mg capsule 300 mg PO BID Qty: 60 3RF sertraline [Zoloft] 50 mg tablet 50 mg PO DAILY Qty: 90 1RF cholecalciferol (vitamin D3) [Vitamin D3] 2,000 unit Capsule 2,000 unit PO DAILY famotidine 20 mg tablet 20 mg PO DAILY PRN (Reason: GERD) omeprazole 20 mg Tablet,Delayed Release (Dr/Ec) 20 mg PO DAILY atorvastatin 40 mg tablet 40 mg PO DAILY ferrous sulfate [iron] 325 mg (65 mg iron) Tablet 325 mg PO DAILY aspirin [Adult Aspirin Regimen] 81 mg tablet,delayed release (DR/EC) 81 mg PO DAILY lisinopril 20 mg tablet 20 mg PO DAILY loratadine 10 mg tablet 10 mg PO DAILY Discontinued tramadol 50 mg tablet 25 mg PO BID PRN (Reason: Pain (Scale Score 4-6)) Follow up/Referrals: Odell Allen MD [Primary Care Provider] - Jennifer Stoner MD [Physician] - 01/26/24 2:00 pm (Follow up w/ Randee Barbosa PA-C, at [facility] in [place].) Diet/Activity/Treatments Diet: Diet as Tolerated Activity: No deep bending or twisting at the waist. No lifting more than 10 pounds. Skin/Wound/Dressing Care Report to your healthcare provider any signs of infection, such as:: chills, fever, night sweats, unusual drainage and unusual redness Dressing: May shower; keep dressing as dry as possible. If dressing becomes wet or dirty, may remove and replace with clean, dry gauze. No bathing or otherwise soaking incisions. Do not apply any creams, lotions, or ointments to incisions. Visit Report/Discharge Packet Instructions: DI for Prescription Opioid Use, DI for Transforaminal Lumbar Interbody Fusion Stand Alone Forms: Patient Portal/API, Stroke Signs & Symptoms, Surgery Discharge Discharge Data Primary Care Provider: Odell Allen VTE Deep Vein Thrombosis/Pulmonary Embolism Present on Admission: No
--- NOTE | 2024-01-12 11:18 | PC.NURSE ---
Patient one person assist with walker to get back to bed. He has a hard time lifting his feet and blames it on the socks, sais they are not gripping for him. He is napping now and will be going to SNF next door around 1400. Dressing to his lower back is cdi. CMS wnl and patient states that he thinks the numbness in his r.leg is better.
--- NOTE | 2024-01-12 11:23 | CM.DPNOTE ---
DCP Note CATALYTIC CASE OPERATOR reviewed EMR. Per Desiree at [facility], able to accept pt today. Transport between 1330 and 1430. CATALYTIC CASE OPERATOR updated RN and gave report number. Ortho MACY left signed meds and PASRR in chart. CC Devika kindly agreed to fax dc information/meds/PASRR to [facility]. placed back in chart. Updated MANAGER COMMUNITY. CATALYTIC CASE OPERATOR met with pt in room. Confirm preference is to dc to [facility], agreeable to plan. Appreciative of this bottom turning lathe turner efforts. CATALYTIC CASE OPERATOR updated Laura addison [facility]. P: dc today to [facility] between [id number]. CM team will continue to follow as needed [employer]
== END 2024-01-12 14:00 | disposition home or self-care (01) | DRG 428 ==
PROVIDERS: Admitting Provider Orthopaedic Surgery Orthopaedic Surgery of the Spine; PCP Family Medicine; Referring Provider Family Medicine; Visit Provider Orthopaedic Surgery Orthopaedic Surgery of the Spine
PROC: 0SG10AJ Fusion of 2 or more Lumbar Vertebral Joints with Interbody Fusion Device, Posterior Approach, Anterior Column, Open Approach (ICD-10-PCS; principal; 2024-01-09 07:45)
DX: M48.062 Spinal stenosis, lumbar region with neurogenic claudication (principal); M41.56 Other secondary scoliosis, lumbar region; M21.372 Foot drop, left foot; N39.498 Other specified urinary incontinence; M54.16 Radiculopathy, lumbar region; G89.18 Other acute postprocedural pain; G25.81 Restless legs syndrome; K21.9 Gastro-esophageal reflux disease without esophagitis; E78.5 Hyperlipidemia, unspecified; D64.9 Anemia, unspecified; I10 Essential (primary) hypertension; Z74.2 Need for assistance at home and no other household member able to render care; Z79.82 Long term (current) use of aspirin; Z95.2 Presence of prosthetic heart valve; Z87.891 Personal history of nicotine dependence
CPT/HCPCS: 36415; 72100; 76000; 85014; 85018; 97116; 97162; 97165; 97530; 97535; C1713; C9290; J0330; J0690; J1100; J1171; J2405; J2704; J3010

== ENCOUNTER → 2024-07-20 11:13 | Outpatient (CLI) | payer OTHER, SELFPAY ==
[2024-01-09 06:19] VITALS: BMI 25.1
[2024-07-20 12:15] LABS: BUN Creatinine Ratio 19.8 (6-22); Blood Urea Nitrogen 17 mg/dL (9-20); Calcium 9.4 mg/dL (8.4-10.2); Carbon Dioxide 26 mmol/L (22-32); Chloride 101 mmol/L (98-107); Estimated Glomerular Filt Rate > 60 mL/min (>60); Glucose 104 mg/dL (80-110); HEMOLYSIS < 15 (0-50); Potassium 4.7 mmol/L (3.4-5.1); Sodium 137 mmol/L (137-145)
[2024-07-20 12:23] LABS: Hematocrit 35.7 % (41-53); Mean Corpuscular HGB Conc 33.6 % (30-36); Mean Corpuscular Hemoglobin 29.1 PG (26-34); Mean Corpuscular Volume 86.6 fL (80-100); Platelet Count 273 X10^3/uL (150-400); Red Blood Cell Count 4.12 X10^6/uL (4.5-5.9); Red Cell Distribution Width 16.9 % (11.6-14.8); White Blood Cell Count 4.6 X10^3/uL (4.5-11.0)
== END ==
PROVIDERS: PCP Family Medicine; Referring Provider Nurse Practitioner; Visit Provider Nurse Practitioner
DX: Z95.2 Presence of prosthetic heart valve (principal)
CPT/HCPCS: 36415; 80048; 85027

== ENCOUNTER → 2024-10-31 11:58 | Outpatient (CLI) | payer OTHER, SELFPAY ==
[2024-01-09 06:19] VITALS: BMI 25.1
[2024-10-31 12:56] LABS: Add Manual Diff / Slide Review NO; Hematocrit 35.3 % (41-53); Hemoglobin 12.2 g/dL (13.5-17.5); Lymphocytes Absolute Auto 900 /uL (1100-4500); Mean Corpuscular HGB Conc 34.7 % (30-36); Mean Corpuscular Hemoglobin 30.6 PG (26-34); Mean Corpuscular Volume 88.2 fL (80-100); Platelet Count 210 X10^3/uL (150-400)
[2024-10-31 13:19] LABS: Alanine Aminotransferase 20 IU/L (<50); Albumin 3.9 g/dL (3.5-5.0); Albumin Globulin Ratio 1.3 (1.0-2.8); Alkaline Phosphatase 106 U/L (38-126); Blood Urea Nitrogen 16 mg/dL (9-20); Calcium 9.0 mg/dL (8.4-10.2); Carbon Dioxide 27 mmol/L (22-32); Chloride 103 mmol/L (98-107); Estimated Glomerular Filt Rate > 60 mL/min (>60); Globulin 3.0 g/dL (1.7-4.1); Glucose 97 mg/dL (70-99); HEMOLYSIS < 15 (0-50); Potassium 4.7 mmol/L (3.4-5.1); Sodium 137 mmol/L (137-145); Total Protein 6.9 g/dL (6.3-8.2); Uric Acid 4.5 mg/dL (3.5-8.5)
== END ==
PROVIDERS: PCP Family Medicine; Referring Provider Family Medicine; Visit Provider Family Medicine
DX: E78.2 Mixed hyperlipidemia (principal)
CPT/HCPCS: 36415; 80053; 84550; 85025

== ENCOUNTER 2024-12-23 11:02 | Emergency (ER) | payer OTHER, SELFPAY ==
[2024-01-09 06:19] VITALS: BMI 25.1
[2024-12-23] VITALS (9 sets, daily range): BP systolic 118–143; BP diastolic 54–70; PULSE 59–76; RESP 16–20; TEMP 36.9; O2SAT 97–100; BMI 24.1
--- NOTE | 2024-12-23 11:14 | DI.RAD.S_ITS ---
PROCEDURE: XR RIBS LT MIN 3V W CXR1V INDICATIONS: fall into armchair, pain TECHNIQUE: 2 views of the ribs were acquired, along with a single view chest. COMPARISON: None. FINDINGS: Surgical changes and devices: None. Bones and chest wall: No fractures or dislocations. No suspicious bony lesions. Overlying soft tissues appear unremarkable. Lungs and pleura: No pleural effusions or pneumothorax. Lungs appear clear. Mediastinum: Mediastinal contours appear normal. Heart size is normal. Aortic valve replacement. Degenerative right shoulder changes IMPRESSION: No displaced rib fracture or pneumothorax. Approved by: Yong Ortiz M.D. on 12/23/2024 at 11:41
--- NOTE | 2024-12-23 11:31 | ED.CHESTPAIN ---
HPI - Chest Pain General Chief Complaint: Chest Pain Stated Complaint: GLF, L Rib Pain Time Seen by Provider: 12/23/24 11:30 Source: patient, RN notes reviewed and old records reviewed Mode of arrival: Family Vehicle Limitations: no limitations Limitations: no limitations History of Present Illness HPI narrative: 79-year-old male history of valve replacement on aspirin, hypertension, dyslipidemia, restless leg who presents with complaint of mechanical ground level fall. Patient states that he tripped and fell on to the side of a couch. In his left ribs. This is about 2 or 3 days before. Denies hitting his head denies any neck or midline back pain. No loss of consciousness. He has had persistent pain particularly with cough sneeze and movement. He does not appreciate any swelling bruising or other skin changes. He felt a little short of breath earlier this morning but not currently. He states it is painful to take a deep breath. He denies any nausea or vomiting. No other GI or urinary symptoms. Denies any other injuries. Patient states because of the persistent pain came for evaluation. He is accompanied by his spouse. Related Data Home Medications ?Medication ?Instructions ?Recorded ?Confirmed multivitamin 1 tab PO DAILY ##0 01/20/11 03/22/24 cholecalciferol (vitamin D3) 50 2,000 unit PO DAILY 10/13/18 03/22/24 mcg (2,000 unit) capsule (Vitamin D3) ferrous sulfate 325 mg (65 mg 325 mg PO DAILY 03/03/20 03/22/24 iron) tablet (iron) vitamin A-vitamin C-vit E-min 1 tab PO DAILY 07/18/23 03/22/24 tablet aspirin 81 mg tablet,delayed 81 mg PO DAILY 09/06/23 03/22/24 release (Adult Aspirin Regimen) loratadine 10 mg tablet 10 mg PO DAILY 09/06/23 03/22/24 omeprazole 20 mg tablet,delayed 20 mg PO DAILY 01/05/24 03/22/24 release lisinopril 20 mg tablet 10 mg PO DAILY 01/31/24 03/22/24 Previous Rx's ?Medication ?Instructions ?Recorded gabapentin 300 mg capsule 300 mg PO BID #60 caps 11/10/23 sertraline 50 mg tablet (Zoloft) 50 mg PO DAILY #90 tabs 11/10/23 acetaminophen 325 mg tablet 650 mg (2 x 325 mg) PO Q6H PRN 01/12/24 Fever/Mild Pain (1-3) #60 tabs docusate sodium 100 mg capsule 100 mg PO BID #20 caps 01/12/24 pramipexole 0.5 mg tablet 0.5 mg PO DAILY #90 tabs 05/07/24 atorvastatin 40 mg tablet 40 mg PO DAILY #90 tabs 05/29/24 hydrocodone 5 mg-acetaminophen 325 1 tab PO Q6H PRN pain #10 tabs 12/23/24 mg tablet Allergies Allergy/AdvReac Type Severity Reaction Status Date / Time Sulfa (Sulfonamide Allergy Mild SEVERE Verified 12/23/24 11:15 Antibiotics) (SULFA HEADACHE (SULFONAMIDE ANTIBIOTICS)) Review of Systems Review of Systems ROS Unobtainable: All systems reviewed & are unremarkable except as noted in HPI and below Patient History Medical History Normal cardiac ejection fraction (07/20/23) Carotid artery stenosis PAD (peripheral artery disease) GERD (gastroesophageal reflux disease) Cervical spinal stenosis Spinal stenosis of lumbar region Lumbar spondylosis Cervical spondylosis Neck pain Aortic valve stenosis RLS (restless legs syndrome) (2011) Lumbar spine pain (1978) Wrist fracture (1968) Positive PPD (1953) Anemia (2010) Chicken pox (1952) Urinary incontinence (2010) Mumps (1953) Acne (1958) Eczema (1983) Chronic back pain (1969) Migraines (1957) Hayfever (2006) Hyperlipidemia Hypertension Prostate cancer (2010) Bladder cancer (2010) Surgical History Bladder replaced Bladder replaced by other means S/P TAVR (transcatheter aortic valve replacement) Cataract extraction status History of colonoscopy (12/05/09) Anesthesia Status post radical cystoprostatectomy (02/08/11) Status post laminectomy (1980) Status post appendectomy (1965) Family History Brother Age: 74 Overweight Brother Age: 64 Diabetes mellitus Hypertension High cholesterol Father High cholesterol Heart disease Pneumonia [place] (myocardial infarction) Mother Cancer Heart disease Hypertension Stroke Congestive heart failure Son No problems noted. Daughter No problems noted. Sister No problems noted. Social History marital status: household members: spouse Smoking Status: Former smoker alcohol intake: current substance use type: does not use Smoking Status: Former smoker tobacco type: cigarettes alcohol intake frequency: holidays/special occasions only Exam Narrative Exam Narrative: GEN: Patient appears in mild distress. Patient is seated on side of the bed. HEAD: No evidence of trauma, no raccoon/Powell sign. NECK: Nontender, painless range of motion, trachea midline Nexus criteria, no midline line tenderness, distracting injury, altered mental status, neuro deficit, recent EtOH. EYES: PERRLA, EOMI ENT: External inspection normal, trachea is midline, Nares are clear, no septal hematoma, no dental or oral injury, airway is normal and with normal occlusion, No bony tenderness RESP: Chest is tender on the left side left lateral 5th 6th ribs and has symmetric movement, no ecchymosis, breath sounds are normal no crackles, wheezes or rales CVS: Heart sounds are normal, no murmur noted, No JVD. ABG/GI: Nontender, soft, normal bowel sounds, no distention, no organomegaly, pelvic rock is negative. NEURO: Oriented AOx3, neuro is grossly intact, sensation and motor is normal all 4 extremities moving, cranial nerves II through XII are intact, GCS is 15 PSYCH: Normal mood and affect SKIN: Intact, warm and dry, no crepitus and without decubitus BACK: No CVA tenderness, no vertebral tenderness, no step-off's, no crepitus EXT: Atraumatic, hips are nontender, normal range of motion. Initial Vital Signs Initial Vital Signs: Vital Signs Pulse Rate 76 12/23/24 11:13 Pulse Oximetry 97 12/23/24 11:13 Course Orders Ordered: ED Orders 12/23/24 11:14 XR ribs LT min 3V w CXR1V Stat Vital Signs Vital signs: Vital Signs - 8 hr 12/23/24 11:13 12/23/24 11:15 12/23/24 11:30 Temperature 98.4 F Pulse Rate 76 75 67 Respiratory Rate 18 Blood Pressure 142/66 H Pulse Oximetry 97 97 98 Oxygen Delivery Method Nasal Cannula 12/23/24 11:31 12/23/24 11:31 12/23/24 12:00 Temperature Pulse Rate 63 59 L Respiratory Rate Blood Pressure 118/54 L Pulse Oximetry 98 100 Oxygen Delivery Method 12/23/24 12:30 12/23/24 13:00 12/23/24 13:30 Temperature Pulse Rate 69 64 62 Respiratory Rate 16 Blood Pressure Pulse Oximetry 99 98 100 Oxygen Delivery Method 12/23/24 13:42 12/23/24 13:42 Temperature Pulse Rate 64 Respiratory Rate 20 Blood Pressure 143/70 H Pulse Oximetry 100 Oxygen Delivery Method MDM - Chest Pain MDM Narrative Medical decision making narrative: Left ribs/chest x-ray no displaced rib fracture or pneumothorax. Discussed with the patient he has tenderness symptoms seems most consistent with a rib fracture although no displaced fracture on x-ray we will still treat with the incentive spirometer. Short course of pain medication and return precautions. Patient's vitals are overall appropriate at this time he is about 3 days out from his initial injury felt appropriate without further workup. Discharge Plan Departure Patient Disposition: Home Clinical Impression: Contusion of rib on left side Instructions: DI for Rib Fracture Activity Restrictions/Additional Instructions: Follow up with your physician for rechecked. Your x-ray does not show any obvious rib fractures but sometimes you can have small fractures that are not displaced. Use the incentive spirometer hourly while awake. You can take acetaminophen up to a 1000 mg every 6 hours as needed for pain if inadequate you can take [place] 1 tablet every 6 hours as needed instead of acetaminophen. This medication can make you sleepy do not drive, perform hazardous activities or make any major decisions while taking it. This medication will make you constipated please take a stool softener once to twice daily until stools are soft and regular. Prescription sent to [facility] in [place] Please return if you are having rapidly worsening pain, new bruising or skin changes, any lightheadedness or passing out, new shortness of breath, pain that changes location, new abdominal back or flank pain, any weakness, changes to mentation or other new or concerning changes. Prescriptions: New hydrocodone-acetaminophen 5-325 mg tablet 1 tab PO Q6H PRN (Reason: pain) Qty: 10 0RF No Action multivitamin Tablet 1 tab PO DAILY Qty: 0 pramipexole 0.5 mg tablet 0.5 mg PO DAILY Qty: 90 3RF atorvastatin 40 mg tablet 40 mg PO DAILY Qty: 90 3RF vitamin A-vitamin C-vit E-min Tablet 1 tab PO DAILY gabapentin 300 mg capsule 300 mg PO BID Qty: 60 3RF sertraline [Zoloft] 50 mg tablet 50 mg PO DAILY Qty: 90 1RF cholecalciferol (vitamin D3) [Vitamin D3] 2,000 unit Capsule 2,000 unit PO DAILY omeprazole 20 mg Tablet,Delayed Release (Dr/Ec) 20 mg PO DAILY acetaminophen 325 mg Tablet 650 mg PO Q6H PRN (Reason: Fever/Mild Pain (1-3)) Qty: 60 0RF docusate sodium 100 mg Capsule 100 mg PO BID Qty: 20 0RF ferrous sulfate [iron] 325 mg (65 mg iron) Tablet 325 mg PO DAILY aspirin [Adult Aspirin Regimen] 81 mg tablet,delayed release (DR/EC) 81 mg PO DAILY loratadine 10 mg tablet 10 mg PO DAILY lisinopril 20 mg tablet 10 mg PO DAILY Referrals: Odell Allen MD [Primary Care Provider, Family Practice] Stand Alone Forms: Patient Portal/API
== END 2024-12-23 13:46 | disposition home or self-care (01) ==
PROVIDERS: Emergency Provider Emergency Medicine; PCP Family Medicine
DX: S20.212A Contusion of left front wall of thorax, initial encounter (principal); W01.190A Fall on same level from slipping, tripping and stumbling with subsequent striking against furniture, initial encounter; Z95.2 Presence of prosthetic heart valve
CPT/HCPCS: 71101; 99283; 99284

== ENCOUNTER → 2024-12-27 11:36 | Outpatient (CLI) | payer OTHER, SELFPAY ==
[2024-01-09 06:19] VITALS: BMI 25.1
--- NOTE | 2024-12-27 11:38 | DI.RAD.S_ITS ---
PROCEDURE: XR RIBS LT MIN 3V W CXR1V INDICATIONS: severe pain, fall a few days ago, likely fracture TECHNIQUE: 2 views of the ribs were acquired, along with a single view chest. COMPARISON: [facility], CR, XR RIBS LT MIN 3V W CXR1V, 12/23/2024, 11:28. FINDINGS: Surgical changes and devices: A percutaneously placed aortic valve replacement can be seen. Lumbar spine fixation hardware is partially seen. Bones and chest wall: Moderate appearing left lateral 6th rib fracture. No definite acute rib fracture is seen. Age-appropriate bony degenerative changes are seen. No suspicious bony lesions. Overlying soft tissues appear unremarkable. Lungs and pleura: No pleural effusions or pneumothorax. Lungs appear clear. Mediastinum: The cardiac contours are within normal limits. The aorta demonstrates calcification and tortuosity. IMPRESSION: There is a chronic appearing left lateral rib fracture, without a rib fracture identified. No pneumothorax is seen. If there is strong clinical concern for chest trauma in this patient, please consider a follow-up chest CT with IV contrast for further evaluation. Postoperative and degenerative changes are seen. Dictated by: Kameron Dior M.D. on 12/27/2024 at 12:10 Approved by: Kameron Dior M.D. on 12/27/2024 at 12:12
== END ==
PROVIDERS: PCP Family Medicine; Referring Provider Family Medicine; Visit Provider Physician Assistant
DX: S22.32XA Fracture of one rib, left side, initial encounter for closed fracture (principal); W19.XXXA Unspecified fall, initial encounter
CPT/HCPCS: 71101